=== PATIENT | male | born 1935 | race Caucasian/White ===

== ENCOUNTER 2016-03-14 16:17 | Observation (INO) | payer OTHER ==
[~2016-03-14] VITALS: Ht 167.6 cm; Wt 82.0 kg
[~2016-03-14 16:17] MED LIST: ACET-171 PO; ALBU18HF INH; ALBU2.5V4 IH; ASPI-973 PO; ATOR40TA69 PO; CEPH-512 PO; DOCU250C2 PO; FERR-74 PO; FURO40TA4 PO; ISOS60TA2 PO; METO25TA99 PO; NITR0.4T SL; OMEP20CA11 PO; OXYC-474 PO; POTA8TAB PO; PRAZ1CAP PO; SERT50TA9 PO; SIME80TA53 PO; SYMINH INHALATION
[2016-03-14 16:30] VITALS: BP 105/64; PULSE 83; RESP 18; O2SAT 90
[2016-03-14 17:57] LABS: BASOPHILS % (AUTO) 0.3 % (0-3); EOSINOPHILS % (AUTO) 5.4 % (0-5); MONOCYTES % (AUTO) 9.1 % (4-12); Mean Corpuscular Hemoglobin 30.9 pg (27.0-35.0); NEUTROPHILS % (AUTO) 70.3 % (40-74); Platelet Count 174 bil/L (150-400)
--- NOTE | 2016-03-14 18:06 | ED.REPORT ---
HPI-Abd Pain M 40 and Over Date of Service Mar 14, 2016 ED Provider: Adrian Mitchell MD An 80 year old male with a history of COPD, hiatal and ventral hernia, and hernia repair surgery among multiple other medical concerns is brought to the ED via EMS complaining of an abdominal hernia. The pt has had this hernia for four years. He has had surgery on the affected area but this was not successful. The pt is able to reduce the hernia, which comes out when he moves, but is experiencing increasing abdominal pain and nausea. The pain is as bad now as it has ever been, rated at an 8/10. The pt has an appointment for surgery with the [facility] in two months but did not feel that he was able to wait that long. Nursing Notes Stated Complaint: ABDOMINAL PAIN Chief Complaint: Male Abdominal Pain Nursing Notes Reviewed: Yes Allergies: Coded Allergies: morphine (Verified Allergy, Intermediate, RASH, 03/14/16) Scheduled Acetaminophen (Acetaminophen) 500 Mg Tablet 1,000 MG PO TID Aspirin (Aspirin) 81 Mg Tablet 81 MG PO DAILY Atorvastatin Calcium (Atorvastatin Calcium) 40 Mg Tablet 40 MG PO HS Budesonide/Formoterol 160-4.5 mcg Inh (Symbicort 160-4.5 mcg Inh) 120 Puff Inhaler 1 PUFF INHALATION BID Cephalexin (Keflex) 500 Mg Capsule 500 MG PO QID Ferrous Sulfate (Feosol) 325 Mg Tablet 325 MG PO DAILYWM Furosemide (Furosemide) 40 Mg Tablet 40 MG PO DAILY Furosemide (Furosemide) 40 Mg Tablet 40 MG PO BID Isosorbide MN ER (Isosorbide MN ER) 60 Mg Tab.er.24h 60 MG PO DAILY Metoprolol Succinate ER (Metoprolol Succinate ER) 25 Mg Tab.er.24h 25 MG PO BID Metoprolol Succinate ER (Metoprolol Succinate ER) 25 Mg Tab.er.24h 25 MG PO BID Omeprazole (Omeprazole) 20 Mg Capsule.dr 20 MG PO DAILY Potassium Chloride (K-Tab ER) 8 Meq Tablet.er 8 MEQ PO DAILY Prazosin (Minipress) 1 Mg Capsule 1 MG PO HS Sertraline HCl (Sertraline) 50 Mg Tablet 50 MG PO HS Simethicone (Gas-X) 80 Mg Tablet 160 MG PO QID Scheduled PRN Albuterol Neb Soln (Albuterol Neb Soln) 2.5 Mg/3 Ml Vial.neb 2.5 MG IH QID PRN PRN For Shortness of Breath Albuterol Sulfate (Ventolin HFA Inhaler) 200 Puff/18 Gm Inhaler 2 PUFF INH QID PRN PRN For Wheezing Docusate Sodium (Docusate Sodium) 250 Mg Capsule 200 MG PO BID PRN PRN For Constipation Nitroglycerin SL (Nitrostat) 0.4 Mg Tab.subl 0.3 MG SL Q5MIN PRN PRN For Chest Pain Oxycodone (Roxicodone) 5 Mg Tablet 2.5 MG PO Q4H PRN PRN For Pain Oxycodone (Roxicodone) 5 Mg Tablet 5 MG PO Q4H PRN PRN For Pain General Time Seen by MD: 18:06 Chief Complaint Other (Abdominal hernia) Hx Obtained From: Patient, EMS Arrived By: Ambulance Sudden in Onset?: No Onset Occurred: More than a week ago... Symptom Duration: Since onset Recent Healthcare: Recent doctor visit, Recent hospitalization Similar Sx Previous: Yes Past Medical History Past Medical History Notes: PCP: Dr. Viveros at the [facility] Past Medical History PAST MEDICAL HISTORY: 1. The patient is known hypertensive, but he cannot confirm this. 2. He has no history of diabetes mellitus. 3. He has history of COPD on home oxygen, which was started about three months ago. He was diagnosed to have COPD around 2006. Known FEV1 in 2006 of 0.96. No history of childhood asthma. 4. History of coronary artery disease, with history of coronary bypass grafting around May 2002 with bovine aortic valve replacement for aortic stenosis at the same time. He subsequently had a repeat coronary bypass grafting around 2006 or 2007, but I cannot confirm this. He said he had cardiac catheterization about 2 months ago at the [facility] and was told that one of his bypass grafts was fine, but the other one was probably obstructed, but stents were not placed. The patient had a previous echocardiogram on April 29, 2011, which revealed normal left ventricular systolic function, with ejection fraction of about 55% to 60%. There is moderate tricuspid regurgitation. There is a bioprosthetic aortic valve. The leaflets are not well seen. The peak velocity of 4.1 msec, which is compatible with vgwoptej-en-lvrlkn aortic stenosis. Aortic valve area 0.79 cm squared. 5. He has a history of streptococcus viridans endocarditis in 2000, due to IV drug use. 6. 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 7. He has no history of thyroid dysfunction. 8. He has history of hyperlipidemia. 9. He has no history of cancer. 10. He has a diagnosis of posttraumatic stress disorder. 11. He has a history of hepatitis C infection. 12. He has a history of benign prostatic hypertrophy. 13. History of hiatal hernia. 14. History of ventral hernia. Reports: COPD, Congestive heart failure, Coronary artery disease, GERD, Hyperlipidemia Reports: Atrial fibrillation Past Surgical History PRIOR SURGERY: Includes colon resection with colostomy in 2007 secondary to ischemic colitis. He had history of brain tumor resection in 1995 on the right side. He has history of cholecystectomy. He has history of aortic valve replacement around 2002 for aortic valve stenosis associated with coronary bypass grafting. He again had coronary bypass grafting July 2007. Reports: CABG Reports: Pacemaker insertion Family History Noncontributory Smoking History Former Smoker Social History currently residing at [facility] due to recent injuries (broken back, subdural hemorrhage) Alcohol Use: 1-3 per week Drug Use: In recovery Other Social History: Local resident Ambulatory Status Cane Review of Systems Review of Systems Note: +abdominal hernia Constitutional: Denies: Chills, Fever Respiratory: Denies: Non-productive cough, Shortness of breath Cardiovascular: Denies: Chest pain GI: Reports: Abdominal pain, Nausea, Denies: Vomiting Musculoskeletal: Denies: Back pain, Neck pain Complete sys rev & neg: except as marked. Physical Exam Initial Vital Signs Vital Signs (First) Date Time Temp Pulse Resp B/P Pulse Ox O2 Delivery O2 Flow Rate FiO2 03/14/16 16:30 36.7 83 18 105/64 90 Room Air 03/14/16 23:06 2 Initial VS: Reviewed General/Constitutional: Awake, Alert Respiratory / Chest: Atraumatic, Breath sounds NL, Breath sounds = bilat, No respiratory distress Cardiovascular: Heart rate NL, Regular rhythm, Heart sounds NL Abdomen: Atraumatic colostomy bag in RUQ hernia just inferior to colostomy bag on the right side hernia is tender to palpation and reducible Back: Atraumatic, Full range of motion Head / Eyes: Atraumatic, Normocephalic, PERRL, EOMI ENT: Atraumatic, Airway patent, Mucous membranes moist Skin: Atraumatic, Color NL, No rash, Warm, Dry Neurologic: Oriented X3, Speech NL, No motor deficits, No sensory deficits Neck: Atraumatic, Supple, Full range of motion Upper Extremity / MS: Atraumatic, Full range of motion Lower Extremity / Pelvis / MS: Atraumatic, Full range of motion Psychiatric: Affect NL, Mood NL Interpretation & Diagnostics Lab Results Interpretation Result Diagram: 03/14/16 1740 03/15/16 0550 Test 03/14/16 17:40 03/14/16 19:15 White Blood Count 6.8th/mm3 (3.8-10.1) Red Blood Count 3.69mil/mm3 (4.40-5.80) Hemoglobin 11.4g/dL (13.8-17.2) Hematocrit 35.8% (41.0-50.0) Mean Corpuscular Volume 97.0fL (81-100) Mean Corpuscular Hemoglobin 30.9pg (27.0-35.0) Mean Corpuscular Hemoglobin Concent 31.8% (32.0-37.0) Red Cell Distribution Width 13.5% (12.3-15.4) Platelet Count 174bil/L (150-400) Neutrophils (%) (Auto) 70.3% (40-74) Lymphocytes (%) (Auto) 14.6% (14-46) Monocytes (%) (Auto) 9.1% (4-12) Eosinophils (%) (Auto) 5.4% (0-5) Basophils (%) (Auto) 0.3% (0-3) Magnesium Level 2.3mg/dL (1.6-2.6) Total Bilirubin 0.4mg/dL (0.0-1.2) Aspartate Amino Transf (AST/SGOT) 21U/L (0-50) Alanine Aminotransferase (ALT/SGPT) 15U/L (0-44) Alkaline Phosphatase 87U/L (25-160) Total Protein 7.7g/dL (6.4-8.4) Albumin 3.4g/dL (3.4-5.0) Lipase 13U/L (13-60) Hold Purple Top Tube Received (Received) Hold Blue Top Tube Received (Received) Hold Red Top Tube Received (Received) Hold [place] Top Tube Received (Received) CT Abd / Pelvis Interpretation IMPRESSION: 1. Mid small bowel high-grade obstruction, secondary to an incarcerated loop of small bowel within a right mid abdominal parastomal hernia. 2. Additional nearby moderate right and small left periumbilical ventral hernias, containing additional loops of nonobstructed small bowel. 3. Status post remote segmental mid colon resection with right mid abdominal colostomy. Descending and sigmoid colon diverticulosis. 4. Bilateral gynecomastia as before may be secondary to medication side effects or underlying liver disease, among other possibilities. 5. Nonacute mild T11 and T12 vertebral body anterior wedge compression fractures. Dictated by: Tico Torrez M.D. on 03/14/2016 at 20:48 Approved by: Tico Torrez M.D. on 03/14/2016 at 20:48 Study type: Abdom CT oral contrast Interpretation / Wet Read by: Interpret - Radiologist Procedures Procedure Notes: Incarcerated hernia reduction performed by surgeon with sedation by ED physician. After procedure: Hernia feels reduced. Proced Mod Sedation/Analgesia Propofol: 20 mg + 15 mg Dilaudid: 2 mg + 2 mg Time: 23:15 Procedure Performed by: ED physician Sedation Time: 0 - 15 min Consent / Setup: Informed consent provided, Consent from patient, Time-out performed, Hand hygiene observed, Stand sterile technique, Head of bed at 30-60 deg Indication: Other (Hernia reduction) Preparation: econometrics professor applied, Pulse oximeter applied, Constant attendance, IV access established, Eval last meal time, Supplemental oxygen, Procedure explained, Suction available, End tidal CO2 mon applied VS Prior to Procedure: All vital signs normal, O2 saturation normal, Blood pressure normal, Heart Rate normal, Respiratory rate normal Mallampati: Class & Anatomy: 4 hard palate visible Airway Exam: Normal facial anatomy, Normal neck anatomy, Normal anatomy CVS/Resp Exam: Normal breath sounds, Normal heart sounds Neuro Exam: Alert, No acute distress Sedation: Sedation: Propofol (35 mg), Analgesia: Dilaudid (4 mg) ASA Classification: 3 sev disease/not incap Response During Procedure: Handled secretions adeq, Maintained airway well, Oxygenation stable, Sedation appropriate, Vital signs stable Complications During/After: None Reversal: None required Mental Status After Procedure: Alert, Oriented X3, At patient's baseline Post-Procedure: Alert prior to discharge, Ambulatory with assist, Pt rtn pre- proc baseline, Vital signs normal Attestation: I performed sedation Re-Eval/Medical Decision Source of Hx: Old records Time of Eval: 21:34 Re-Evaluation/Progress Note: Pt rechecked. He is still experiencing significant pain. Time of Eval: 23:07 Re-Evaluation/Progress Note: Pt rechecked. Discussed plan for procedural sedation to attempt to reduce his incarcerated hernia. The procedure will be performed by the surgeon. He agrees with plan for sedation and procedure. Consultation #1: Referral / Consult Name: Kavitha Nolasco MD Consulted With: Surgeon Call Returned at: 21:53 Entry Level Accounting Clerk: Will see patient, Agrees with eval, Agrees with plan Note: Case discussed. She will come see the patient. After evaluation, she would like to perform procedural sedation and attempt to reduce it. After procedure, she believes the procedure was successful and she recommends admit to hospitalist service for observation. She will re-evaluate the patient tomorrow morning. Consultation #2: Referral / Consult Name: Celine Agrawal MD Consulted With: Hospitalist Call Returned at: 23:49 Entry Level Accounting Clerk: Will see patient, Agrees with eval, Agrees with plan, Accepts admit Note: Case discussed. [facility], she will admit. Consultation #3: Call Returned at: 00:49 Note: Discussed case with [facility] transfer nurse. They have room for the patient and will call back if the hospitalist agrees to take him. Consultation #4: Call Returned at: 01:30 Entry Level Accounting Clerk: Agrees with eval, Agrees with plan Note: [facility] They request I speak to the surgeon. Consultation #5: Consulted With: Surgeon Call Returned at: 01:59 Entry Level Accounting Clerk: Agrees with eval, Agrees with plan Note: Discussed case with [facility] surgeon Dr. Jeter. They would like us to admit him to the hospitalist service. They will see him in their clinic on . Counseled Regarding: Diagnosis, Lab results, Need for admission Discharge & Departure Primary Impression: SBO (small bowel obstruction) Additional Impressions: Incarcerated hernia Colostomy in place Diverticulosis Diverticulosis site: diverticulosis of large intestine Diverticulosis bleeding: diverticulosis without bleeding Qualified Code: K57.30 - Diverticulosis of large intestine without perforation or abscess without bleeding Gynecomastia Wedge compression fracture of eleventh thoracic vertebra Encounter type: subsequent encounter Fracture type: closed Fracture healing : with routine healing Qualified Code: S22.080D - Wedge compression fracture of T11-T12 vertebra, subsequent encounter for fracture with routine healing Wedge compression fracture of twelfth thoracic vertebra Encounter type: subsequent encounter Fracture type: closed Fracture healing : with routine healing Qualified Code: S22.080D - Wedge compression fracture of T11-T12 vertebra, subsequent encounter for fracture with routine healing Disposition: ADMITTED TO HOSPITAL Vital Signs - All Vital Signs Date Time Temp Pulse Resp B/P Pulse Ox O2 Delivery O2 Flow Rate FiO2 03/14/16 23:06 36.5 71 18 107/63 97 Nasal Cannula 2 03/14/16 16:30 36.7 83 18 105/64 90 Room Air )( All Prior VS Reviewed: Yes Condition: Stable Referrals: James Viveros MD (PCP) Daphne Attestation Portions of this note were transcribed by Anais Mejia. Dr. Stephen Gonzalez personally performed the history, physical exam and medical decision-making; I reviewed and confirmed the accuracy of the information in the transcribed note. Signed by: Daphne Ivan, 03/14/2016, 18:39 Portions of this note were transcribed by Regan Arreola. Dr. Munira Gonzalez personally performed the history, physical exam and medical decision-making; I reviewed and confirmed the accuracy of the information in the transcribed note. Daphne Moss, 03/14/16 - 1950 copies to: James Viveros MD, Gary R DO Mar 14, 2016 18:06 ANAIS MEJIA Mar 14, 2016 18:36 REGAN ARREOLA Mar 14, 2016 19:51 bleeding: diverticulosis without bleeding Qualified Code: K57.30 - Diverticulosis of large intestine without perforation or abscess without bleeding Gynecomastia Wedge compression fracture of eleventh thoracic vertebra Encounter type: subsequent encounter Fracture type: closed Fracture healing : with routine healing Qualified Code: S22.080D - Wedge compression fracture of T11-T12 vertebra, subsequent encounter for fracture with routine healing Wedge compression fracture of twelfth thoracic vertebra Encounter type: subsequent encounter Fracture type: closed Fracture healing : with routine healing Qualified Code: S22.080D - Wedge compression fracture of T11-T12 vertebra, subsequent encounter for fracture with routine healing Disposition: ADMITTED TO HOSPITAL Vital Signs - All Vital Signs Date Time Temp Pulse Resp B/P Pulse Ox O2 Delivery O2 Flow Rate FiO2 03/14/16 23:06 36.5 71 18 107/63 97 Nasal Cannula 2 03/14/16 16:30 36.7 83 18 105/64 90 Room Air )( All Prior VS Reviewed: Yes Condition: Stable Referrals: James Viveros MD (PCP) Daphne Attestation Portions of this note were transcribed by Anais Mejia. Dr. Stephen Gonzalez personally performed the history, physical exam and medical decision-making; I reviewed and confirmed the accuracy of the information in the transcribed note. Signed by: Daphne Ivan, 03/14/2016, 18:39 Portions of this note were transcribed by Regan Arreola. Dr. Munira Gonzalez personally performed the history, physical exam and medical decision-making; I reviewed and confirmed the accuracy of the information in the transcribed note. Daphne Moss, 03/14/16 - 1950 copies to: James Viveros MD, Gary R DO Mar 14, 2016 18:06 ANAIS MEJIA Mar 14, 2016 18:36 REGAN ARREOLA Mar 14, 2016 19:51
[2016-03-14 18:26] LABS: Magnesium 2.3 mg/dL (1.6-2.6)
[2016-03-14] MEDS ORDERED: Ondansetron 2 mg/mL 2 mL Inj IVPUSH ONE (18:35)
[2016-03-14] MEDS ORDERED: Iohexol 300 mg/mL 30 mL Inj PO ONE (18:35)
[2016-03-14] MEDS ORDERED: Ondansetron 2 mg/mL 2 mL Inj IVPUSH PRN (18:35)
[2016-03-14] MEDS: HYDROmorphone 0.5 mg/0.5 mL iSecure Syringe IVPUSH PRN ×3 (20:07→22:27)
--- NOTE | 2016-03-14 20:50 | DRSVH ---
PROCEDURE: CT ABDOMEN AND PELVIS WITH CONTRAST ([id number]) INDICATIONS: 80 year-old male with ventral hernia pain. TECHNIQUE: After the administration of oral and intravenous contrast, 5 mm thick sections acquired from the diap hragms to the symphysis. 5 mm thick coronal and sagittal reformats were performed. For radiation do se reduction, the following was used: automated exposure control, adjustment of mA and/or kV accordi ng to patient size. COMPARISON: [facility], CT, CT ABDOMEN PELVIS W CONTRAST, 02/22/2016, 1:52 PM. [facility], CT, CT ABDOMEN PELVIS W CONTRAST, 11/25/2015, 8:36 AM. [facility], CT, CT ABD PELVIS W CON, 11/19/2015, 21:12. FINDINGS: Image quality: Excellent. ABDOMEN: Lung bases: Lung bases are clear, except for scattered bibasilar scarring. Heart size is normal, st atus post median sternotomy and aortic valve replacement. There is bilateral gynecomastia as before. Pacemaker wires are present. Solid organs: Liver and spleen are normal in size and enhancement. Gallbladder is surgically absent . Biliary system is non-dilated. Pancreas enhances normally. No adrenal nodules. Kidneys are norm al in size and enhancement, without hydronephrosis. Peritoneum and bowel: Patient is status post segmental mid colon resection with right abdominal colo stomy. Descending and sigmoid colon are decompressed, with sigmoid colon diverticulosis. Several dila david loops of mid small bowel are present in the central abdomen, with decompressed distal small bowel loops. No free fluid or air. Nodes and vessels: No retroperitoneal or mesenteric adenopathy. Aorta and inferior vena cava are no rmal in caliber, with diffuse aortoiliac atherosclerosis. Miscellaneous: Moderate right and small left periumbilical ventral hernias are again noted, containin g several loops of small bowel. An additional right mid abdominal parastomal hernia is again noted, c ontaining a dilated loop of small bowel with internal feces-like material. PELVIS: Genitourinary: The bladder is decompressed by a Lindsey catheter. Prostate gland is normal in size. Miscellaneous: No inguinal hernias or adenopathy. Bones: No suspicious bony lesions. Nonacute T11 and T12 vertebral body compression fractures are unc hanged. IMPRESSION: 1. Mid small bowel high-grade obstruction, secondary to an incarcerated loop of small bowel within a right mid abdominal parastomal hernia. 2. Additional nearby moderate right and small left periumbilical ventral hernias, containing addition al loops of nonobstructed small bowel. 3. Status post remote segmental mid colon resection with right mid abdominal colostomy. Descending an d sigmoid colon diverticulosis. 4. Bilateral gynecomastia as before may be secondary to medication side effects or underlying liver d isease, among other possibilities. 5. Nonacute mild T11 and T12 vertebral body anterior wedge compression fractures. Dictated by: Tico Torrez M.D. on 03/14/2016 at 20:48 Approved by: Tico Torrez M.D. on 03/14/2016 at 20:48
[2016-03-14] MEDS ORDERED: HYDROmorphone 1 mg/mL Inj IVPUSH ONE (23:00)
[2016-03-14] MEDS ORDERED: Propofol 10 mg/mL 20 mL Inj IVPUSH ONE (23:00)
--- NOTE | 2016-03-14 23:05 | NUR ---
[facility] Note Patient rang call light for assistance in getting into a comfortable position. He appears hard of hearing as he had the television very loud. At this time patient elected to keep the TV turned up while having a conversation with this staff member. Patient stated that he has been experiencing very bad stomach pain and that was why he was here. He appears otherwise calm about this. Patient appears physically uncomfortable but otherwise easily engaged, even smiling. Patient appears logical and linear as well as oriented to time and place. He is future oriented, stating that he just doesn't want to be in any more pain.
[2016-03-14 23:06] VITALS: BP 107/63; PULSE 71; RESP 18; O2SAT 97
--- NOTE | 2016-03-15 01:05 | CONS ---
[address] [address] CONSULTATION REPORT PATIENT: FABIÁN AVALOS : 1935 MR#: [id number] ADMIT: 03/14/2016 JOB ID: [id number] DATE OF SERVICE: 03/14/2016 CHIEF COMPLAINT: Incarcerated parastomal hernia. This consultation is requested by Gibran Lombardo DO. HISTORY OF PRESENT ILLNESS: This is an 80-year-old man with a history of right colectomy for ischemic colitis, with a right-sided colostomy, who has a parastomal hernia and a midline ventral hernia. He has been in the emergency department many times over the past 10 years with incarceration of his parastomal hernia. Typically, it is reduced and he is discharged. He has been seen by multiple surgeons, including several here at [facility], and has also been evaluated at the [facility] in [place] where his right hemicolectomy was done. He has been relatively not a candidate for elective surgical intervention given his comorbidities of COPD with home oxygen, history of coronary artery disease, status post CABG, and congestive heart failure, as well as poor functional status. He came in today with a bulge and abdominal pain near his stoma. He last had stoma output earlier this morning. He is having some nausea but no vomiting. PAST MEDICAL HISTORY: 1. Hypertension. 2. COPD, on home oxygen. 3. Coronary artery disease, status post CABG in 2002, with bovine aortic valve replacement, and repeat CABG in . 4. History of Streptococcus viridans endocarditis in 2000 due to IV drug use. 5. History of partial and complete small bowel obstruction. 6. Hyperlipidemia. 7. PTSD. 8. History of hepatitis C. 9. BPH. 10. Hiatal hernia. PAST SURGICAL HISTORY: 1. Right colectomy in 2007 for ischemic colitis. 2. Cholecystectomy. 3. CABG with AVR in 2002. 4. Repeat CABG in 2007. 5. Pacemaker placement. MEDICATIONS: 1. Tylenol. 2. Aspirin. 3. Atorvastatin. 4. Furosemide. 5. Metoprolol. 6. Omeprazole. 7. Potassium. 8. Prazosin. 9. Sertraline. 10. Simethicone. PRNs: 1. Albuterol. 2. Docusate 3. Nitroglycerin. 4. Oxycodone. ALLERGIES: MORPHINE. SOCIAL HISTORY: He lives with his roommate, Kwame Gaines, who he says is his DPOA. He used to smoke, and a history of IV drug use in the past. In the emergency department, he notes he is residing at [facility]. REVIEW OF SYSTEMS: Review of systems could not be obtained as the patient has difficulty answering questions. However, the review of systems in the emergency department note reports abdominal pain and nausea, and is otherwise negative. PHYSICAL EXAMINATION: Temperature 36.7, heart rate 83, blood pressure 105/64, respiratory rate of 18, saturation 90% on room air. General: Awake, unable to answer questions. Cardiac: Regular rate and rhythm, systolic murmur is present. Respiratory: Clear bilaterally. Abdomen: Tender bulge near his right colostomy bag, and nontender bulge is present in the midline. The remainder of his abdomen is not tender. Extremities: Atraumatic. Psychiatric: He appears somewhat anxious. LABORATORIES: White blood cell count is 6.8, hematocrit 35.8, platelets 174. Comprehensive metabolic panel is within normal limits. CT SCAN: Small bowel obstruction due to incarcerated loop of small bowel within a parastomal hernia. There is a right ventral hernia with additional loops of nonobstructed bowel. ASSESSMENT: An 80-year-old male with incarcerated loop of bowel within a parastomal hernia. This has happened many times before. He has normal labs and vital signs. Normal lactate. He has been ruled out as a candidate for elective repair due to his comorbidities. RECOMMENDATIONS: The hernia was reduced using 4 mg of Dilaudid plus propofol, as per Dr. Lombardo of the emergency department. We did this reduction together. The patient tolerated it well. The bulge was entirely reduced from both herniae at the end of the procedure. His abdomen was flat and flush. I recommend overnight admission for observation given the incarcerated nature of his hernia. If he shows signs of bowel compromise, I will be available for intervention. However, his overall clinical picture is relatively benign, observation will be in his best interest. CHEMA
[2016-03-15] MEDS ORDERED: Alum-Mag Hydrox-Simeth 30 mL Suspension PO PRN (02:15)
[2016-03-15] MEDS ORDERED: Polyethylene Glycol (PEG) 17 Gm Powder PO PRN (02:15)
[2016-03-15] MEDS ORDERED: Ondansetron 2 mg/mL 2 mL Inj IVPUSH PRN (02:15)
--- NOTE | 2016-03-15 02:22 | PCM.HPMED ---
Subjective Date of Service Mar 15, 2016 Primary Provider: Admitting Physician: Celine Agrawal MD Primary Care Physician: James Viveros MD Attending Physician: Celine Argawal MD Chief Complaint: Parastomal herniation History of Present Illness: Patient is a 80-year-old male with Hx significant for CAD status post CABG 4,atrial fibrillation with RVR, pacemaker, by prostatic aortic valve placement, COPD on home O2, hemicolectomy with right colostomy presents with recurrent parastomal herniation. Per medical records, patient presented today with ventral hernia, unable to reduced protrusion as he has done before, had increasing abdominal pain and nausea, thus came to the ED. CT-abdomen showed high grade small bowel obstruction within the parastomal hernia and a second small periumbilical hernia. Under conscious sedation, surgeon Dr. Nolasco and Dr. Lombardo was able to reduced to hernias. Case was discuss with [facility] Dr. Jeter who agrees to see patient at their clinic on 03/19/2016. Prior to procedure, patient was conversing, alert and oriented 3. When I evaluated him at around 4:00am today, patient respond to command, however not alert and oriented 3. Patient looks sedated. Propofol and Dilaudid 4mg was used for conscious sedation. ABG showed pH 7.264, PCO2 68, PO2 66, bicarbonate 29. Patient was transferred on to PCC/CCU for monitor, possible BIPAP. Review of Systems: Unable to obtain review of systems due to patient's condition. Allergies Coded Allergies: morphine (Verified Allergy, Intermediate, RASH, 03/14/16) Home Medications Medication list has not been reconciled by nurse Acetaminophen 1000 mg by mouth 3 times a day when necessary Albuterol nebulizer 2.5 mg inhaler 4 times a day. And Ventolin HFA 4 times a day when necessary Aspirin 81 mg daily Atorvastatin 40 mg at bedtime Symbicort 160/4.5 3 times a day Keflex 500 mg 4 times a day Docusate sodium 200 mg twice a day Ferrous sulfate 325 mg daily Furosemide 40 mg daily Isosorbide ER 60 mg daily Metoprolol succinate 25 mg twice a day Nitroglycerin 0.4 mg up lingual when necessary for chest pain Omeprazole 20 mg daily Roxicodone 5 mg by mouth every 4 hours when necessary Potassium chloride 8 mEq daily Prazosin 1 mg at bedtime Sertraline 50 mg at bedtime Simethicone 160 mg 4 times a day PMH Recurrent parastomal hernia Subdural hematoma April. Vertebral fracture L11-12 Atrial fibrillation with RVR. Coronary artery disease s/p bypass grafting COPD on 2L home oxygen. Heart failure with preserved ejection fraction Hepatitis C Hyperlipidemia. PTSD Bladder dysfunction requiring chronic indwelling Lindsey catheter Pulmonary hypertension Sick sinus syndrome S/P pacemaker History of deep vein thrombosis History of gastric ulcer Anxiety Insomnia Agitation History of drug abuse Endocarditis 3, strep viridans Ischemic colitis s/p partial colectomy Surgical History Craniotomy for benign brain tumor Bioprosthetic aortic valve replacement in 2009 Cholecystectomy CABG 4 Pacemaker placement Sigmoid colon resection with colostomy Parastomal hernia repair 2012 Achilles tendon surgery (bilateral) Family History Father with unknown cancer Mother: Alzheimer disease, Social History Hx Alcohol Use: Yes ("3 beers once a week") Hx Substance Use: Yes (quit cocaine 10 years ago) Hx Tobacco Use: Yes ("quit in 1994") Smoking Status: Former Smoker Living Arrangement: Other (lives alone in his trailer) Exam Vital Signs Vital Sign - Last Date Time Temp Pulse Resp B/P Pulse Ox O2 Delivery O2 Flow Rate FiO2 03/14/16 23:06 36.5 71 18 107/63 97 Nasal Cannula 2 Exam General: Sedated HEENT: Normocephalic, atraumatic. External ears without defect. Pupils equal, round, and reactive to light and accommodation. Anicteric sclerae, moist conjunctivae, and no lid lag. Oropharynx free of erythema and cobble stoning with moist mucosa. Neck: Supple with full range of motion. No jugular venous distension. No bruits. No lymphadenopathy or thyromegaly. Cardiovascular: 2+ systolic murmur, irregularly irregular rate and rhythm Pulmonary: Bilateral air sound, wheezes on the lower right lobe. Normal respiratory effort with no use of accessory muscles. Abdomen: Bowel tones present. Soft nontender, ventral hernia adjacent to right colostomy bag Extremities: No clubbing, cyanosis, edema, or lymphadenopathy appreciated. Skin: Normal temperature, turgor, and texture; no rash, ulcers, or subcutaneous nodules appreciated. Neurological: Cranial nerves grossly intact. Normal muscle strength, tone, and bulk. Psychiatric: Confused, not alert orientated, however response to command. Lab and Diagnostics Result Diagram: 03/14/16 [id number] Assessment & Plan Patient is a 80-year-old male with Hx significant for CAD status post CABG 4, atrial fibrillation with RVR, pacemaker, by prostatic aortic valve placement, COPD on home O2, hemicolectomy with right colostomy presents with recurrent parastomal herniation with small bowel incarceration, admitted for observation. Hypoxic, hypercapnic respiratory failure, present on admission active - Monitor mentation - Consider abdominal truss and BIPAP if mentation worsen Small bowel obstruction, present on admission, active - s/p reduction - Trend lactic acid - Surgery following. COPD, present on admission, stable - Symbicort 160/4.5 MCG - Albuterol, DuoNeb when necessary Heart failure with preserved ejection fraction, present on admission, stable - Lasix 40mg daily Chronic Afib, present on admission, stable - Has a pacemaker - Metoprolol succinate 25 mg twice a day Depression - Sertraline 50mg PTSD - Prazosin 1mg HS DVT prophylaxis: heparin subQ Antipyretic: Acetaminophen PRN Antinausea: Ondansetron PRN Bowel regiment PRN Patient is admitted under observation status with expected length of stay LESS than 2 midnights due to severity of presenting symptoms, risk of adverse event, and complexity of treatment plan. Resuscitation Status: CPR: Attempt Resuscitation Attending Statement Pt seen and examined by myself and agree with above plan. Christiano Gunter DO Mar 15, 2016 02:22 Celine Agrawal MD Mar 15, 2016 06:27
[2016-03-15 02:57] VITALS: BP 95/69; PULSE 96; RESP 18; O2SAT 93
[2016-03-15] MEDS: HYDROmorphone 0.5 mg/0.5 mL iSecure Syringe IVPUSH PRN (03:03)
[2016-03-15] MEDS ORDERED: 0.9% Sodium Chloride 1,000 ML IV SCH (03:40)
[2016-03-15 03:45] VITALS: BP 123/80; PULSE 94; RESP 20; O2SAT 94
--- NOTE | 2016-03-15 04:04 | ABG ---
DateTimeAnalyzed 03:55:00 -_ pH ____7.264 - 7.350 7.450 pCO2 ___68.2__ -mmHg 35.0 45.0 pO2 ___66.7__ -mmHg 69.0 116 HCO3- ___29.9__ -mmol/L 22.0 26.0 ABE ____1.8__ -mmol/L -2.0 2.0 tHb ___11.9__ -g/dL O2Hb ___88.6__ -% COHb ____1.3__ -% MetHb ____1.1__ -% sO2 ___90.8__ -% 25.0 FIO2 ___28.0__ -% Drawn By MM - Date/Time Notified____ 04:03:00 -_ Liter_Flow ____2.0__ -L/min Oxygen Device 1 __CANNULA - Notified By MM - Notified Whom HUNG, ANN MARIE MD - B 750 -mmHg tO2 ___14.8__ -Vol% Gerson test _Positive -
--- NOTE | 2016-03-15 05:00 | NUR ---
Pt transferred from [facility]. Pt came up on bed and ambulated from [facility] bed to CCU bed without difficulty. Pt is a little drowsy but wakes easily to verbal stimuli and is able to answer questions and make needs known. Pt is on 1 lpm with sats at 94%, will attempt a RA challenge. Do to pt's COPD history and retaining of CO2, we will attempt to keep sats 88-91%. Vital signs stable. HR is sinus with pvc.
--- NOTE | 2016-03-15 05:06 | NUR ---
To [facility] from ED @ 0300 Drowsy from conscious sedation in ED. Night hospitalist at bedside. ABG's drawn. Order to transfer to 2nd floor received from Dorita Correa. Report given to Demetra Gregory and patient transported to 2014. Admit not complete.
[2016-03-15] MEDS ORDERED: Albuterol-Ipratropium 3 mL Inhalation Solution NEB PRN (05:10)
[2016-03-15] MEDS ORDERED: Albuterol 2.5 mg/3 mL Inhalation Solution NEB PRN (05:10)
[2016-03-15 05:14] LABS: APPEARANCE,URINE CLOUDY (CLEAR,HAZY); COLOR,URINE YELLOW (YELLOW); OCCULT BLOOD,URINE MODERATE (NEGATIVE); PH,URINE 5.5 (5.0-8.0)
[2016-03-15 05:15] VITALS: BP 115/64; PULSE 95; RESP 20; O2SAT 92
[2016-03-15 05:15] LABS: YEAST,URINE MANY (NONE SEEN)
[2016-03-15] MEDS ORDERED: diphenhydrAMINE-Zinc 2%-0.1% 30 Gm Cream TOPICAL PRN (05:40)
[2016-03-15] MEDS: Isosorbide Mononitrate 60 mg ER24 Tablet PO SCH ×2 (07:30→10:40)
[2016-03-15 08:23] VITALS: BP 110/65; PULSE 91; RESP 11; O2SAT 92
[2016-03-15] MEDS ORDERED: Heparin 5,000 Unit/mL Inj SUBQ SCH (08:30)
[2016-03-15] MEDS ORDERED: MeTOProlol XL 25 mg ER24 Tablet PO SCH (08:30)
[2016-03-15] MEDS ORDERED: Fluticasone-Salmererol 250-50 Inhaler INHALATION SCH (08:30)
--- NOTE | 2016-03-15 08:55 | PROG NOTE ---
[address] [address] PROGRESS NOTE PATIENT: FABIÁN AVALOS : 1935 MR#: [id number] ADMIT: 03/15/2016 JOB ID: [id number] DATE: 03/15/2016 SUBJECTIVE: This is an 80-year-old man who presented with an incarcerated parastomal hernia, as well as a midline ventral hernia. He has been to this hospital many times before for the same. He has been considered to be a nonoperative candidate by his providers at the [facility] due to his comorbidities. His parastomal hernia was reduced last night. This morning he reports that he is not having abdominal pain. The ventral hernia just to the left of the peristomal hernia still has loops of bowel in it, however, these are easily reducible and nontender. OBJECTIVE: Vital signs are within normal limits. He is awake and alert, no acute distress. Abdomen: Midline ventral hernia is still protuberant, soft, reducible, and nontender. The peristomal hernia bulge has been reduced and remains reduced. He does not have tenderness around his stoma. Currently there is nothing in the ostomy bag. Basic metabolic panel is within normal limits. There is no CBC this morning. ASSESSMENT: An 80-year-old man status post reduction of a peristomal hernia last night. He was admitted overnight and the peristomal portion of his hernia has not recurred. RECOMMENDATIONS: If he shows signs of return of bowel function, i.e. gas or stool in his ostomy bag, he may be discharged. He may follow up with me as an outpatient. CHEMA
--- NOTE | 2016-03-15 09:19 | NUR ---
Mentation Pt AAOx3, ambulated to bathroom with cane with SBA, gait steady. Independently emptied Lindsey and colostomy. Declined to take medications, as he would rather take them at home. Addendum: 03/15/16 at 1107 by MICHAEL HASKINS RN Pt c/o central CP, upon interview and assessment, pt reports the pain moves around to different placed on his chest. Colostomy bag with significant gas in it. Pt had just finished breakfast. EKG obtained, see chart. ABG and Trops pending. Pt on 1L NC with SpO2 95%. Pt now amicable to taking morning medications, received isosorbide, metoprolol, lasix. Addendum: 03/15/16 at 1212 by MICHAEL HASKINS RN Pt now denies any pain at all. Lab unable to get blood, ordered to d/c patient. D/C teaching complete. VSS. Pt declines questions.
--- NOTE | 2016-03-15 10:19 | PCM.DIMED ---
Discharge Instructions Date of Service Mar 15, 2016 Dates of Hospitalization Mar 15, 2016 at 02:07 Diet No restrictions Activity Limited until seen by PCP Call your provider Other (worsening abdomimal pain) Patient Instructions Follow-up plan Follow up with Dr. Jeter on 03/19/16; one of the doctors wilson care of you in the hospital spoke with this doctor who agrees to see you in follow up as noted above. Also follow up with your primary care provider soon. Stephania Dave MD Mar 15, 2016 10:19
--- NOTE | 2016-03-15 10:31 | PCM.DC.MED ---
Discharge Summary Date of Service Mar 15, 2016 Dates of Hospitalization Date of Hospital Admission Mar 15, 2016 at 02:07 Date of Discharge: Mar 15, 2016 Providers: Admitting Physician: Celine Agrawal MD Primary Care Physician: James Viveros MD Attending Physician: Celine Agrawal MD Diagnosis at Time of Discharge Diagnosis at Time of Discharge Hypoxic, hypercapnic respiratory failure, present on admission, resolved Small bowel obstruction, present on admission, resolved COPD, present on admission, stable Heart failure with preserved ejection fraction, present on admission, stable Chronic Afib, present on admission, stable Depression, poa, stable PTSD , poa, stable Brief History Patient is a 80-year-old male with Hx significant for CAD status post CABG 4,atrial fibrillation with RVR, pacemaker, by prostatic aortic valve placement, COPD on home O2, hemicolectomy with right colostomy presents with recurrent parastomal herniation. Per medical records, patient presented today with ventral hernia, unable to reduced protrusion as he has done before, had increasing abdominal pain and nausea, thus came to the ED. CT-abdomen showed high grade small bowel obstruction within the parastomal hernia and a second small periumbilical hernia. Under conscious sedation, surgeon Dr. Nolasco and Dr. Lombardo was able to reduced to hernias. [facility] who agrees to see patient at their clinic on 03/19/2016. Prior to procedure, patient was conversing, alert and oriented 3. When I evaluated him at around 4:00am today, patient respond to command, however not alert and oriented 3. Patient looks sedated. Propofol and Dilaudid 4mg was used for conscious sedation. ABG showed pH 7.264, PCO2 68, PO2 66, bicarbonate 29. Patient was transferred on to PCC/CCU for monitor, possible BIPAP. Hospital Course Patient is a 80-year-old male with Hx significant for CAD status post CABG 4, atrial fibrillation with RVR, pacemaker, by prostatic aortic valve placement, COPD on home O2, hemicolectomy with right colostomy presents with recurrent parastomal herniation with small bowel incarceration, admitted for observation. Hypoxic, hypercapnic respiratory failure, present on admission active -secondary to sedation, bowl obstruction, and underlying COPD,,, resolved today. I wanted to do repeat ABG, patient refused, stable for discharge. Small bowel obstruction, present on admission, active - s/p reduction, with conscious sedation, now resolved. Follow up with surgery , [facility], Dr. Jeter,, Dr. Nolasco will sent a note to this surgeon for follow up thoughts. COPD, present on admission, stable - continue home precious Heart failure with preserved ejection fraction, present on admission, stable - continue home meds Chronic Afib, present on admission, stable - continue home meds Depression - continue home meds PTSD - continue same maeds Med Rec. I am not sure if this med rec is correct and patient does not know hids meds, Patient will continue on his usual home medications however and this was discussed with him. DVT prophylaxis: heparin subQ Antipyretic: Acetaminophen PRN Antinausea: Ondansetron PRN Bowel regiment PRN Patient is admitted under observation status with expected length of stay LESS than 2 midnights due to severity of presenting symptoms, risk of adverse event, and complexity of treatment plan. Exam Vital Signs (Last) Date Time Temp Pulse Resp B/P Pulse Ox O2 Delivery O2 Flow Rate FiO2 03/15/16 08:24 Supplement Oxygen 03/15/16 08:23 36.9 91 11 110/65 92 1.00 Test 03/14/16 17:40 03/14/16 19:15 03/15/16 02:45 03/15/16 05:50 White Blood Count 6.8th/mm3 (3.8-10.1) Red Blood Count 3.69mil/mm3 (4.40-5.80) Hemoglobin 11.4g/dL (13.8-17.2) Hematocrit 35.8% (41.0-50.0) Mean Corpuscular Volume 97.0fL (81-100) Mean Corpuscular Hemoglobin 30.9pg (27.0-35.0) Mean Corpuscular Hemoglobin Concent 31.8% (32.0-37.0) Red Cell Distribution Width 13.5% (12.3-15.4) Platelet Count 174bil/L (150-400) Neutrophils (%) (Auto) 70.3% (40-74) Lymphocytes (%) (Auto) 14.6% (14-46) Monocytes (%) (Auto) 9.1% (4-12) Eosinophils (%) (Auto) 5.4% (0-5) Basophils (%) (Auto) 0.3% (0-3) Magnesium Level 2.3mg/dL (1.6-2.6) Total Bilirubin 0.4mg/dL (0.0-1.2) Aspartate Amino Transf (AST/SGOT) 21U/L (0-50) Alanine Aminotransferase (ALT/SGPT) 15U/L (0-44) Alkaline Phosphatase 87U/L (25-160) Total Protein 7.7g/dL (6.4-8.4) Albumin 3.4g/dL (3.4-5.0) Lipase 13U/L (13-60) Hold Purple Top Tube Received (Received) Hold Blue Top Tube Received (Received) Hold Red Top Tube Received (Received) Hold [place] Top Tube Received (Received) Urine Color Yellow (YELLOW) Urine Appearance Cloudy (CLEAR,HAZY) Urine pH 5.5 (5.0-8.0) Urine Specific [place] 1.010 (1.003-1.035) Urine Protein Negativemg/dL (NEG,TRACE) Urine Glucose (UA) Negativemg/dL (NEGATIVE) Urine Ketones Negativemg/dL (NEGATIVE) Urine Occult Blood Moderate (NEGATIVE) Urine Nitrite Negative (NEGATIVE) Urine Bilirubin Negative (NEGATIVE) Urine Urobilinogen 1.0mg/dL (NORMAL) Urine Leukocyte Esterase Moderate (NEGATIVE) Urine RBC 3-10/hpf (0-2) Urine WBC Packed/hpf (0-5) Urine Epithelial Cells Occasional/hpf (NONE-MOD) Urine Crystals None seen (NONE SEEN) Urine Bacteria None/hpf (NONE-FEW) Urine Hyaline Casts None/lpf (NONE) Urine Granular Casts None seen (NONE SEEN) Urine Waxy Casts None seen (NONE SEEN) Urine Red Blood Cell Casts None seen (NONE SEEN) Urine White Blood Cell Casts None seen (NONE SEEN) Urine Mucus None seen (None Seen) Urine Trichomonas None seen (NONE SEEN) Urine Yeast Many (NONE SEEN) Urine Culture Reflexed Indicated Hold Urine Received (Received) Sodium Level 136mEq/L (134-144) Potassium Level 5.1mEq/L (3.5-5.2) Chloride Level 97mEq/L (97-108) Carbon Dioxide Level 27mmol/L (18-29) Blood Urea Nitrogen 20mg/dL (8-27) Creatinine 0.97mg/dL (0.76-1.27) Estimat Glomerular Filtration Rate 79mL/min (>59) Glucose Level 111mg/dL (60-99) Lactic Acid Level 0.7mmol/L (0.4-2.0) Calcium Level 8.8mg/dL (8.5-10.1) Discharge Medications Discharge Medications Acetaminophen (Acetaminophen) 500 Mg Tablet 1,000 MG PO TID (Reported) Aspirin (Aspirin) 81 Mg Tablet 81 MG PO DAILY (Reported) Atorvastatin Calcium (Atorvastatin Calcium) 40 Mg Tablet 40 MG PO HS Prescribed by: ANDRIY DICKERSON MD Budesonide/Formoterol 160-4.5 mcg Inh (Symbicort 160-4.5 mcg Inh) 120 Puff Inhaler 1 PUFF INHALATION BID Prescribed by: ANDRIY DICKERSON MD Cephalexin (Keflex) 500 Mg Capsule 500 MG PO QID Prescribed by: ANDRIY DICKERSON MD Ferrous Sulfate (Feosol) 325 Mg Tablet 325 MG PO DAILYWM Prescribed by: ANDRIY DICKERSON MD Furosemide (Furosemide) 40 Mg Tablet 40 MG PO DAILY (Reported) Furosemide (Furosemide) 40 Mg Tablet 40 MG PO BID Prescribed by: ANDRIY DICKERSON MD Isosorbide MN ER (Isosorbide MN ER) 60 Mg Tab.er.24h 60 MG PO DAILY Prescribed by: ANDRIY DICKERSON MD Metoprolol Succinate ER (Metoprolol Succinate ER) 25 Mg Tab.er.24h 25 MG PO BID (Reported) Metoprolol Succinate ER (Metoprolol Succinate ER) 25 Mg Tab.er.24h 25 MG PO BID Prescribed by: ANDRIY DICKERSON MD Omeprazole (Omeprazole) 20 Mg Capsule.dr 20 MG PO DAILY (Reported) Potassium Chloride (K-Tab ER) 8 Meq Tablet.er 8 MEQ PO DAILY Prescribed by: ANDRIY DICKERSON MD Prazosin (Minipress) 1 Mg Capsule 1 MG PO HS Prescribed by: ANDRIY DICKERSON MD Sertraline HCl (Sertraline) 50 Mg Tablet 50 MG PO HS (Reported) Simethicone (Gas-X) 80 Mg Tablet 160 MG PO QID (Reported) As needed Albuterol Neb Soln (Albuterol Neb Soln) 2.5 Mg/3 Ml Vial.neb 2.5 MG IH QID PRN PRN For Shortness of Breath (Reported) Albuterol Sulfate (Ventolin HFA Inhaler) 200 Puff/18 Gm Inhaler 2 PUFF INH QID PRN PRN For Wheezing (Reported) Docusate Sodium (Docusate Sodium) 250 Mg Capsule 200 MG PO BID PRN PRN For Constipation (Reported) Nitroglycerin SL (Nitrostat) 0.4 Mg Tab.subl 0.3 MG SL Q5MIN PRN PRN For Chest Pain (Reported) Oxycodone (Roxicodone) 5 Mg Tablet 2.5 MG PO Q4H PRN PRN For Pain (Reported) Oxycodone (Roxicodone) 5 Mg Tablet 5 MG PO Q4H PRN PRN For Pain (Reported) Followup Plan Follow-up plan Follow up with Dr. Jeter on 03/19/16; one of the doctors wilson care of you in the hospital spoke with this doctor who agrees to see you in follow up as noted above. Also follow up with your primary care provider soon. Discharge Diet: No restrictions Discharge Activity: Limited until seen by PCP copies to: James Viveros MD; Kavitha Nolasco MD, D Geoffrey MD Mar 15, 2016 10:31
[2016-06-22] MEDS ORDERED: AMOX-366 PO (10:23)
== END 2016-03-15 12:35 | disposition home or self-care (01) ==
LOC: EDBD 16:17 → SED 16:17 → EDUNIT# 16:17 → OSC 03-15 02:07 → CCU 03-15 04:26
PROVIDERS: ADMIT Specialist; ATTEND Specialist
DX: J96.92 Respiratory failure, unspecified with hypercapnia (principal); K43.5 Parastomal hernia without obstruction or gangrene; K43.9 Ventral hernia without obstruction or gangrene; J44.9 Chronic obstructive pulmonary disease, unspecified; I50.9 Heart failure, unspecified; I48.2 Chronic atrial fibrillation; F43.10 Post-traumatic stress disorder, unspecified; I25.10 Atherosclerotic heart disease of native coronary artery without angina pectoris; Z95.1 Presence of aortocoronary bypass graft; Z95.4 Presence of other heart-valve replacement; Z93.3 Colostomy status; K55.9 Vascular disorder of intestine, unspecified; Z95.0 Presence of cardiac pacemaker; Z99.81 Dependence on supplemental oxygen; N31.9 Neuromuscular dysfunction of bladder, unspecified
CPT/HCPCS: 36415; 36620; 74177; 80048; 80053; 81000; 82375; 82803; 83605; 83690; 83735; 84484; 85025; 87081; 87086; 87088; 87186; 94799; 96374; 96375; 96376; 99285; J1170; J2405; Q9967

== ENCOUNTER 2016-03-23 08:55 | Emergency (ER) | payer OTHER ==
[2016-03-23 09:04] VITALS: BP 109/65; PULSE 74; RESP 16; O2SAT 89
--- NOTE | 2016-03-23 09:33 | ED.REPORT ---
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 The pain feels similar to previous recurrences. The patient has attempted to reduce this x4 this morning, with minimal success. Pt reports mild nausea with no vomiting. Nursing Notes Stated Complaint: HERNIA Chief Complaint: Male Abdominal Pain Nursing Notes Reviewed: Yes (SlidePay not reconciled) Allergies: Coded Allergies: morphine (Verified Allergy, Intermediate, RASH, 03/23/16) Scheduled Acetaminophen (Acetaminophen) 500 Mg Tablet 1,000 MG PO TID Aspirin (Aspirin) 81 Mg Tablet 81 MG PO DAILY Atorvastatin Calcium (Atorvastatin Calcium) 40 Mg Tablet 40 MG PO HS Budesonide/Formoterol 160-4.5 mcg Inh (Symbicort 160-4.5 mcg Inh) 120 Puff Inhaler 1 PUFF INHALATION BID Cephalexin (Keflex) 500 Mg Capsule 500 MG PO QID Ferrous Sulfate (Feosol) 325 Mg Tablet 325 MG PO DAILYWM Furosemide (Furosemide) 40 Mg Tablet 40 MG PO DAILY Furosemide (Furosemide) 40 Mg Tablet 40 MG PO BID Isosorbide MN ER (Isosorbide MN ER) 60 Mg Tab.er.24h 60 MG PO DAILY Metoprolol Succinate ER (Metoprolol Succinate ER) 25 Mg Tab.er.24h 25 MG PO BID Metoprolol Succinate ER (Metoprolol Succinate ER) 25 Mg Tab.er.24h 25 MG PO BID Omeprazole (Omeprazole) 20 Mg Capsule.dr 20 MG PO DAILY Potassium Chloride (K-Tab ER) 8 Meq Tablet.er 8 MEQ PO DAILY Prazosin (Minipress) 1 Mg Capsule 1 MG PO HS Sertraline HCl (Sertraline) 50 Mg Tablet 50 MG PO HS Simethicone (Gas-X) 80 Mg Tablet 160 MG PO QID Scheduled PRN Albuterol Neb Soln (Albuterol Neb Soln) 2.5 Mg/3 Ml Vial.neb 2.5 MG IH QID PRN PRN For Shortness of Breath Albuterol Sulfate (Ventolin HFA Inhaler) 200 Puff/18 Gm Inhaler 2 PUFF INH QID PRN PRN For Wheezing Docusate Sodium (Docusate Sodium) 250 Mg Capsule 200 MG PO BID PRN PRN For Constipation Nitroglycerin SL (Nitrostat) 0.4 Mg Tab.subl 0.3 MG SL Q5MIN PRN PRN For Chest Pain Oxycodone (Roxicodone) 5 Mg Tablet 2.5 MG PO Q4H PRN PRN For Pain Oxycodone (Roxicodone) 5 Mg Tablet 5 MG PO Q4H PRN PRN For Pain oxyCODONE (oxyCODONE) 5 Mg Tablet 5-10 MG PO Q6H PRN PRN For Pain General Time Seen by MD: 09:24 Chief Complaint Abdominal pain Hx Obtained From: Patient, EMS Arrived By: Ambulance Sudden in Onset?: Yes Onset Occurred: 1 - 4 hours ago Symptom Duration: Since onset Progression since Onset: Constant Location: : RLQ Quality: Painful Severity: Current: Moderate Associated with: Reports: Nausea, Denies: Vomiting Pertinent Negative: Relieved by nothing Recent Healthcare: Recent doctor visit Similar Sx Previous: Yes Past Medical History Past Medical History Notes: PCP: Dr. Viveros at the [place] Past Medical History PAST MEDICAL HISTORY: 1. HTN 2. 3. He has history of COPD on home oxygen, which was started about three months ago. He was diagnosed to have COPD around 2006. Known FEV1 in 2006 of 0.96. No history of childhood asthma. 4. History of coronary artery disease, with history of coronary bypass grafting around May 2002 with bovine aortic valve replacement for aortic stenosis at the same time. He subsequently had a repeat coronary bypass grafting around 2006 or 2007, but I cannot confirm this. He said he had cardiac catheterization about 2 months ago at the [facility] and was told that one of his bypass grafts was fine, but the other one was probably obstructed, but stents were not placed. The patient had a previous echocardiogram on April 29, 2011, which revealed normal left ventricular systolic function, with ejection fraction of about 55% to 60%. There is moderate tricuspid regurgitation. There is a bioprosthetic aortic valve. The leaflets are not well seen. The peak velocity of 4.1 msec, which is compatible with [id number] aortic stenosis. Aortic valve area 0.79 cm squared. 5. He has a history of streptococcus viridans endocarditis in 2000, due to IV drug use. 6. 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 7. He has no history of thyroid dysfunction. 8. He has history of hyperlipidemia. 9. He has no history of cancer. 10. He has a diagnosis of posttraumatic stress disorder. 11. He has a history of hepatitis C infection. 12. He has a history of benign prostatic hypertrophy. 13. History of hiatal hernia. 14. History of ventral hernia. Reports: COPD, Congestive heart failure, Coronary artery disease, GERD, Hyperlipidemia Reports: Atrial fibrillation Past Surgical History Includes colon resection with colostomy in 2007 secondary to ischemic colitis. 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 cholecystectomy. aortic valve replacement (bovine) around 2002 for aortic valve stenosis associated with coronary bypass grafting. He again had coronary bypass grafting July 2007 (which was a redo CABG) Reports: Pacemaker insertion Family History Noncontributory Smoking History Former Smoker Social History currently residing at [facility] due to recent injuries (broken back, subdural hemorrhage) Alcohol Use: 1-3 per week Drug Use: In recovery Other Social History: Local resident Ambulatory Status Cane Review of Systems Respiratory: Denies: Shortness of breath Cardiovascular: Denies: Chest pain GI: Reports: Abdominal pain, Nausea, Denies: Vomiting Complete sys rev & neg: except as marked. Physical Exam Initial Vital Signs Vital Signs (First) Date Time Temp Pulse Resp B/P Pulse Ox O2 Delivery O2 Flow Rate FiO2 03/23/16 09:04 36.2 74 16 109/65 89 Room Air 03/23/16 10:41 2 Initial VS: Reviewed, Vital signs normal Head / Eyes: Atraumatic, Normocephalic Neck: Full range of motion Extremities: Vascular intact, Neuro intact Skin: Warm, Dry, No cyanosis Neurologic: Alert, Oriented, Nonfocal Psychiatric: Behavior normal, Normal thought content General/Constitutional: Awake, Alert Chronically ill. Respiratory: SOB at rest which pt reports is at baseline. Audible bronchospasm in all [place]. Cardiovascular: Heart rate NL, Regular rhythm, Heart sounds NL, Peripheral circulation NL Organomegaly / Mass / Hernia: Positive: Hernia is reducible Incisional hernia tense and tender. Able to reduce at bedside. Interpretation & Diagnostics Lab Results Interpretation Result Diagram: 03/23/16 1030 03/23/16 1030 Test 03/23/16 10:30 White Blood Count 7.7th/mm3 (3.8-10.1) Red Blood Count 3.52mil/mm3 (4.40-5.80) Hemoglobin 10.8g/dL (13.8-17.2) Hematocrit 34.0% (41.0-50.0) Mean Corpuscular Volume 96.6fL (81-100) Mean Corpuscular Hemoglobin 30.7pg (27.0-35.0) Mean Corpuscular Hemoglobin Concent 31.8% (32.0-37.0) Red Cell Distribution Width 13.3% (12.3-15.4) Platelet Count 166bil/L (150-400) Neutrophils (%) (Auto) 66.5% (40-74) Lymphocytes (%) (Auto) 17.6% (14-46) Monocytes (%) (Auto) 9.9% (4-12) Eosinophils (%) (Auto) 5.3% (0-5) Basophils (%) (Auto) 0.3% (0-3) Sodium Level 136mEq/L (134-144) Potassium Level 4.1mEq/L (3.5-5.2) Chloride Level 96mEq/L (97-108) Carbon Dioxide Level 28mmol/L (18-29) Blood Urea Nitrogen 20mg/dL (8-27) Creatinine 0.95mg/dL (0.76-1.27) Estimat Glomerular Filtration Rate 81mL/min (>59) Glucose Level 113mg/dL (60-99) Calcium Level 9.0mg/dL (8.5-10.1) Total Bilirubin 0.4mg/dL (0.0-1.2) Aspartate Amino Transf (AST/SGOT) 17U/L (0-50) Alanine Aminotransferase (ALT/SGPT) 12U/L (0-44) Alkaline Phosphatase 90U/L (25-160) Total Protein 6.8g/dL (6.4-8.4) Albumin 3.5g/dL (3.4-5.0) Hold Perez Top Tube Received (Received) Lab Results Interpretation: CBC normal, no leukocytosis CMP normal, normal CO2, no acidosis General Lab Results Interp 1: Labs reviewed Procedures Procedure Notes: Manual reduction of incarcerated abdominal hernia was performed at bedside without difficulty Re-Eval/Medical Decision Med Decision/Clinical Course This is an 80-year-old male who presents complaining of hernia pain for few hours. Patient's had a chronic incisional hernia but has severe underlying cardiopulmonary disease and a poor surgical candidate, and is have for an intermediate incarcerations. He presents complaining of pain, some nausea-but no vomiting. Hoarse no change in his baseline respiratory status. He tells me he has an appointment again to see a surgeon to discuss surgical repair, despite the risks, in the next few days. On exam he does have a tender incisional hernia just above the umbilicus, and just medial to his colostomy site. However, I was able to manually reduce the hernia without difficulty at the bedside with marked improvement. This has happened (rancid incarcerated) a number of times previously, and the patient is well known to me. He clinically did well. He did report some titrated Dilaudid and was kept for a period of observation. Repeat exams and straight no tenderness, feels much improved. I am not finding evidence to indicate ischemic bowel. His labs are normal. He clinically appears well. He is comfortable on reexam. He is a reasonable candidate for discharge and can keep the outpatient surgical consulation. Source of Hx: Old records Time of Eval: 11:12 Re-Evaluation/Progress Note: Pt's pain is much improved. Pt updated of labs. Discussed plan for d/c and f/u. All questions addressed. Time of Eval: 13:41 Re-Evaluation/Progress Note: After finishing his soup, pt complains that his hernia recurred. This was manually reduced again and the patient is discharged home. Differential Diagnosis: Positive: Acute abdominal pain, Negative: Dyspepsia, Esophageal rupture, Gun shot wound abdomen, Pancreatitis , Stab wound abdomen Counseled Regarding: Diagnosis, Lab results, Need for follow-up, When/why to return to ED Discharge & Departure Primary Impression: Incisional hernia Obstruction and gangrene presence: without obstruction or gangrene Qualified Code: K43.2 - Incisional hernia without obstruction or gangrene Additional Impression: Incarcerated hernia Disposition: Home Vital Signs - All Vital Signs Date Time Temp Pulse Resp B/P Pulse Ox O2 Delivery O2 Flow Rate FiO2 03/23/16 13:36 36.2 70 16 118/64 95 Nasal Cannula 2 1/9/17 10:41 72 18 94 Nasal Cannula 2 03/23/16 09:04 36.2 74 16 109/65 89 Room Air )( All Prior VS Reviewed: Yes Condition: Improved 1. Your hernia was temporarily incarcerated again today, and we were able to reduce it in the emergency department. 2. Continue current care. 3. Keep your appointment with the surgeons for potential repair. 4. Return again if new or worsening symptoms. Referrals: NOPCP (PCP) Scribe Attestation Portions of this note were transcribed by Karina Boyd. I, (Dr. Fermin) personally performed the history, physical exam and medical decision-making; I reviewed and confirmed the accuracy of the information in the transcribed note. Signed by: Karina Boyd. 03/23/2016, 1114 Roger Fermin MD Mar 23, 2016 09:33 Karina Boyd Mar 23, 2016 09:56
[2016-03-23] MEDS ORDERED: Albuterol 2.5 mg/3 mL Inhalation Solution NEB ONE (09:55)
[2016-03-23] MEDS ORDERED: Albuterol-Ipratropium 3 mL Inhalation Solution NEB ONE (09:55)
[2016-03-23] MEDS ORDERED: Ondansetron 2 mg/mL 2 mL Inj IVPUSH ONE (09:55)
[2016-03-23] MEDS: HYDROmorphone 1 mg/mL Inj IVPUSH PRN ×2 (10:21→11:30)
[2016-03-23 10:41] VITALS: PULSE 72; RESP 18; O2SAT 94
[2016-03-23 10:44] LABS: BASOPHILS % (AUTO) 0.3 % (0-3); EOSINOPHILS % (AUTO) 5.3 % (0-5); MONOCYTES % (AUTO) 9.9 % (4-12); Mean Corpuscular Hemoglobin 30.7 pg (27.0-35.0); Mean Corpuscular Volume 96.6 fL (81-100); NEUTROPHILS % (AUTO) 66.5 % (40-74); Platelet Count 166 bil/L (150-400)
[2016-03-23 13:36] VITALS: BP 118/64; PULSE 70; RESP 16; O2SAT 95
[2016-03-23] MEDS ORDERED: OXYC5TAB72 PO (13:46)
[2016-06-22] MEDS ORDERED: AMOX-366 PO (10:23)
== END 2016-03-23 13:37 | disposition home or self-care (01) ==
LOC: SED 08:55
DX: K43.0 Incisional hernia with obstruction, without gangrene (principal); R11.0 Nausea; I25.10 Atherosclerotic heart disease of native coronary artery without angina pectoris; I11.0 Hypertensive heart disease with heart failure; I50.9 Heart failure, unspecified; I48.91 Unspecified atrial fibrillation; J44.9 Chronic obstructive pulmonary disease, unspecified; K21.9 Gastro-esophageal reflux disease without esophagitis; E78.5 Hyperlipidemia, unspecified; Z95.4 Presence of other heart-valve replacement; Z95.1 Presence of aortocoronary bypass graft; Z95.0 Presence of cardiac pacemaker; Z90.49 Acquired absence of other specified parts of digestive tract; Z79.82 Long term (current) use of aspirin; Z87.891 Personal history of nicotine dependence; Z88.5 Allergy status to narcotic agent
CPT/HCPCS: 36415; 80053; 85025; 94640; 94664; 96374; 96375; 96376; 99285; J1170; J2405; J7613; J7620

== ENCOUNTER 2016-03-24 16:47 | Emergency (ER) | payer OTHER ==
[~2016-03-24] VITALS: Ht 167.6 cm; Wt 65.0 kg
[~2016-03-24 16:47] MED LIST changes: +OXYC5TAB72 PO
[2016-03-24 17:15] VITALS: BP 96/61; PULSE 76; RESP 12; O2SAT 98
[2016-03-24 18:15] LABS: BASOPHILS % (AUTO) 0.5 % (0-3); EOSINOPHILS % (AUTO) 4.1 % (0-5); Mean Corpuscular Hemoglobin 30.8 pg (27.0-35.0); Mean Corpuscular Volume 96.9 fL (81-100); NEUTROPHILS % (AUTO) 74.6 % (40-74); Platelet Count 186 bil/L (150-400)
[2016-03-24] MEDS ORDERED: HYDROmorphone 1 mg/mL Inj IVPUSH PRN (20:35)
--- NOTE | 2016-03-24 20:56 | ED.REPORT ---
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 The pain feels similar to previous recurrences at 8-10/10 pain. The patient has attempted to reduce this morning, with minimal success. Pt reports mild nausea with no vomiting. Decreased ostomy output for 2 days. Nursing Notes Stated Complaint: RECURRENT HERNIA Chief Complaint: Male Abdominal Pain Nursing Notes Reviewed: Yes Allergies: Coded Allergies: morphine (Verified Allergy, Intermediate, RASH, 03/23/16) Scheduled Acetaminophen (Acetaminophen) 500 Mg Tablet 1,000 MG PO TID Aspirin (Aspirin) 81 Mg Tablet 81 MG PO DAILY Atorvastatin Calcium (Atorvastatin Calcium) 40 Mg Tablet 40 MG PO HS Budesonide/Formoterol 160-4.5 mcg Inh (Symbicort 160-4.5 mcg Inh) 120 Puff Inhaler 1 PUFF INHALATION BID Cephalexin (Keflex) 500 Mg Capsule 500 MG PO QID Ferrous Sulfate (Feosol) 325 Mg Tablet 325 MG PO DAILYWM Furosemide (Furosemide) 40 Mg Tablet 40 MG PO DAILY Furosemide (Furosemide) 40 Mg Tablet 40 MG PO BID Isosorbide MN ER (Isosorbide MN ER) 60 Mg Tab.er.24h 60 MG PO DAILY Metoprolol Succinate ER (Metoprolol Succinate ER) 25 Mg Tab.er.24h 25 MG PO BID Metoprolol Succinate ER (Metoprolol Succinate ER) 25 Mg Tab.er.24h 25 MG PO BID Omeprazole (Omeprazole) 20 Mg Capsule.dr 20 MG PO DAILY Potassium Chloride (K-Tab ER) 8 Meq Tablet.er 8 MEQ PO DAILY Prazosin (Minipress) 1 Mg Capsule 1 MG PO HS Sertraline HCl (Sertraline) 50 Mg Tablet 50 MG PO HS Simethicone (Gas-X) 80 Mg Tablet 160 MG PO QID Scheduled PRN Albuterol Neb Soln (Albuterol Neb Soln) 2.5 Mg/3 Ml Vial.neb 2.5 MG IH QID PRN PRN For Shortness of Breath Albuterol Sulfate (Ventolin HFA Inhaler) 200 Puff/18 Gm Inhaler 2 PUFF INH QID PRN PRN For Wheezing Docusate Sodium (Docusate Sodium) 250 Mg Capsule 200 MG PO BID PRN PRN For Constipation Nitroglycerin SL (Nitrostat) 0.4 Mg Tab.subl 0.3 MG SL Q5MIN PRN PRN For Chest Pain Oxycodone (Roxicodone) 5 Mg Tablet 2.5 MG PO Q4H PRN PRN For Pain Oxycodone (Roxicodone) 5 Mg Tablet 5 MG PO Q4H PRN PRN For Pain oxyCODONE (oxyCODONE) 5 Mg Tablet 5-10 MG PO Q6H PRN PRN For Pain General Time Seen by MD: 19:35 Chief Complaint Abdominal pain Hx Obtained From: Patient Sudden in Onset?: Yes Past Medical History Past Medical History Notes: PCP: Dr. Viveros at the [facility] Past Medical History PAST MEDICAL HISTORY: 1. HTN 2. 3. He has history of COPD on home oxygen, which was started about three months ago. He was diagnosed to have COPD around 2006. Known FEV1 in 2006 of 0.96. No history of childhood asthma. 4. History of coronary artery disease, with history of coronary bypass grafting around May 2002 with bovine aortic valve replacement for aortic stenosis at the same time. He subsequently had a repeat coronary bypass grafting around 2006 or 2007, but I cannot confirm this. He said he had cardiac catheterization about 2 months ago at the [facility] and was told that one of his bypass grafts was fine, but the other one was probably obstructed, but stents were not placed. The patient had a previous echocardiogram on April 29, 2011, which revealed normal left ventricular systolic function, with ejection fraction of about 55% to 60%. There is moderate tricuspid regurgitation. There is a bioprosthetic aortic valve. The leaflets are not well seen. The peak velocity of 4.1 msec, which is compatible with [id number] aortic stenosis. Aortic valve area 0.79 cm squared. 5. He has a history of streptococcus viridans endocarditis in 2000, due to IV drug use. 6. 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 7. He has no history of thyroid dysfunction. 8. He has history of hyperlipidemia. 9. He has no history of cancer. 10. He has a diagnosis of posttraumatic stress disorder. 11. He has a history of hepatitis C infection. 12. He has a history of benign prostatic hypertrophy. 13. History of hiatal hernia. 14. History of ventral hernia. Reports: COPD, Congestive heart failure, Coronary artery disease, GERD, Hyperlipidemia, Hypertension Reports: Atrial fibrillation Past Surgical History Includes colon resection with colostomy in 2007 secondary to ischemic colitis. 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 cholecystectomy. aortic valve replacement (bovine) around 2002 for aortic valve stenosis associated with coronary bypass grafting. He again had coronary bypass grafting July 2007 (which was a redo CABG) Reports: Pacemaker insertion Family History Noncontributory Smoking History Former Smoker Social History Residing at [facility] due to recent injuries (broken back, subdural hemorrhage)- this was a previous reporT, Today he states he lives in a trailer with a roommate in [facility]. Alcohol Use: 1-3 per week Drug Use: In recovery Other Social History: Local resident Ambulatory Status Cane Review of Systems Review of Systems Note: A comprehensive review of systems was conducted with the patient and found to be negative except as above in the History of Present Illness. Physical Exam Physical Exam Notes: General: Elderly gentleman in mild to moderate distress, well-developed, well-nourished, appropriately interactive. HEENT: Normocephalic, atraumatic. External ears without defect. Pupils equal, round, and reactive to light and accommodation. Anicteric sclerae, moist conjunctivae, and no lid lag. Oropharynx free of erythema and cobble stoning with moist mucosa. Edentulous. Neck: Supple with full range of motion. No jugular venous distension. No bruits. No lymphadenopathy or thyromegaly. Cardiovascular: Regular rate and rhythm with no murmurs, rubs, or gallops appreciated Pulmonary: Diffuse rhonci with moderate wheezes bilaterally with no crackles. Normal respiratory effort with no use of accessory muscles with 2 L O2 nasal canula. Abdomen: Ostomy in place with scant output. Soft, tender to palpation in the periumbilical area as well as a large cantalope sized right sided abdominal hernia, just inferior to ostomy, with moderate rebound tenderness. Hepatosplenomegaly not appreciated due to tenderness, no masses appreciated. Extremities: No clubbing, cyanosis, edema, or lymphadenopathy appreciated. Skin: Normal temperature, turgor, and texture; no rash, ulcers, or subcutaneous nodules appreciated. Neurological: Cranial nerves grossly intact. Normal muscle strength, tone, and bulk. Reflexes, coordination, and sensory function within normal limits. No known gait impairment. Psychiatric: Normal mood and affect. Alert and oriented to person, place, and time. Initial Vital Signs Vital Signs (First) Date Time Temp Pulse Resp B/P Pulse Ox O2 Delivery O2 Flow Rate FiO2 03/24/16 17:15 37.1 76 12 96/61 98 Nasal Cannula 4 Interpretation & Diagnostics Interpretation & Diagnostics: Labs within normal limits. Will attempt IV pain meds then manual hernia reduction. Lab Results Interpretation Result Diagram: 03/24/16 1806 03/24/16 1806 Test 03/24/16 18:06 White Blood Count 8.4th/mm3 (3.8-10.1) Red Blood Count 3.60mil/mm3 (4.40-5.80) Hemoglobin 11.1g/dL (13.8-17.2) Hematocrit 34.9% (41.0-50.0) Mean Corpuscular Volume 96.9fL (81-100) Mean Corpuscular Hemoglobin 30.8pg (27.0-35.0) Mean Corpuscular Hemoglobin Concent 31.8% (32.0-37.0) Red Cell Distribution Width 13.1% (12.3-15.4) Platelet Count 186bil/L (150-400) Neutrophils (%) (Auto) 74.6% (40-74) Lymphocytes (%) (Auto) 12.4% (14-46) Monocytes (%) (Auto) 8.0% (4-12) Eosinophils (%) (Auto) 4.1% (0-5) Basophils (%) (Auto) 0.5% (0-3) Sodium Level 133mEq/L (134-144) Potassium Level 4.3mEq/L (3.5-5.2) Chloride Level 92mEq/L (97-108) Carbon Dioxide Level 29mmol/L (18-29) Blood Urea Nitrogen 19mg/dL (8-27) Creatinine 1.07mg/dL (0.76-1.27) Estimat Glomerular Filtration Rate 70mL/min (>59) Glucose Level 116mg/dL (60-99) Lactic Acid Level 0.7mmol/L (0.4-2.0) Calcium Level 8.9mg/dL (8.5-10.1) Total Bilirubin 0.6mg/dL (0.0-1.2) Aspartate Amino Transf (AST/SGOT) 18U/L (0-50) Alanine Aminotransferase (ALT/SGPT) 12U/L (0-44) Alkaline Phosphatase 90U/L (25-160) Total Protein 7.3g/dL (6.4-8.4) Albumin 3.5g/dL (3.4-5.0) Hold Perez Top Tube Received (Received) Procedures Procedure Notes: Abdominal hernia was manually reducible. Re-Eval/Medical Decision Med Decision/Clinical Course Discharge & Departure Shift Change Sign-Out Discussed Complaint(s): Yes Laboratory Evaluation: Lab evaluation discussed Procedures: Results discussed Response to Therapy: Improved Primary Impression: Hernia of small intestine Disposition: Home Vital Signs - All Vital Signs Date Time Temp Pulse Resp B/P Pulse Ox O2 Delivery O2 Flow Rate FiO2 03/24/16 23:00 85 18 102/59 92 Room Air 03/24/16 21:56 36.9 74 14 102/72 98 Room Air 03/24/16 17:15 37.1 76 12 96/61 98 Nasal Cannula 4 Condition: Stable Additional Instructions: Your abdominal hernia was reduced successfully. Your labs and vital signs were stable here at [facility] Emergency department. We will send you home with Hydrocodone for pain control. - When taking pain medications DO NOT drive and DO NOT drink alcohol and DO NOT take extra acetaminophen (Tylenol). IF you have not emptied your colostomy in 6 hours time, please come back to the Emergency department. Referrals: NOPCP (PCP) 1 Week [facility] Attending Statement I personally took a history of performed a physical examination. With a dose of IM Dilaudid we are able to easily reduce the hernia. His colostomy bag started to have stool and gas output. His abdomen was soft and not at all tender. No evidence of a bowel obstruction. Laboratory work is very reassuring. Due to the fact they are able to easily reduce the hernia I do not feel that advanced imaging would offer anything in this case. I do recommend close outpatient follow-up. copies to: [facility] NEREIDA HELLER DO Mar 24, 2016 19:57 Daniel Starr DO Mar 25, 2016 03:04
[2016-03-24] MEDS ORDERED: HYDROmorphone 1 mg/mL Inj IM PRN (21:00)
[2016-03-24 21:56] VITALS: BP 102/72; PULSE 74; RESP 14; O2SAT 98
[2016-03-24] MEDS ORDERED: _HYDROcodone/APAP 5-325 mg Tablet PO PRN ×2 (22:05→22:10)
[2016-03-24 23:00] VITALS: BP 102/59; PULSE 85; RESP 18; O2SAT 92
[2016-06-22] MEDS ORDERED: AMOX-366 PO (10:23)
== END 2016-03-24 23:00 | disposition home or self-care (01) ==
LOC: SED 16:47 → EDBD 16:47 → SED 23:00
DX: K45.8 Other specified abdominal hernia without obstruction or gangrene (principal); I10 Essential (primary) hypertension; J44.9 Chronic obstructive pulmonary disease, unspecified; I25.10 Atherosclerotic heart disease of native coronary artery without angina pectoris; Z87.891 Personal history of nicotine dependence; Z87.19 Personal history of other diseases of the digestive system; Z95.0 Presence of cardiac pacemaker; Z90.49 Acquired absence of other specified parts of digestive tract; Z99.81 Dependence on supplemental oxygen; Z95.1 Presence of aortocoronary bypass graft; Z86.79 Personal history of other diseases of the circulatory system; Z93.3 Colostomy status; Z79.82 Long term (current) use of aspirin; Z79.51 Long term (current) use of inhaled steroids; Z88.5 Allergy status to narcotic agent
CPT/HCPCS: 36415; 80053; 83605; 85025; 96372; 99284; J1170

== ENCOUNTER 2016-03-26 13:30 | Emergency (ER) | payer OTHER ==
[~2016-03-26] VITALS: Ht 167.6 cm; Wt 143.0 kg
[2016-03-26 13:34] VITALS: BP 131/83; PULSE 88; O2SAT 96
--- NOTE | 2016-03-26 13:59 | ED.REPORT ---
HPI- Male Date of Service Mar 26, 2016 ED Provider: Josue Flores MD Patient is an 80 year old male who presents to the ED complaining of penile pain which was getting worse this afternoon. He reports that he has had similar pain before but that it comes and goes. He took pain medication without relief but is asymptomatic upon examination. He denies vomiting, fever, or any other symptoms. He was on his way home from a surgery appointment in [place] when the pain in the penis became intolerable. He denies any new trauma. Nursing Notes Stated Complaint: UNABLE TO URINATE Chief Complaint: Male Abdominal Pain Nursing Notes Reviewed: Yes Allergies: Coded Allergies: morphine (Verified Allergy, Intermediate, RASH, 03/23/16) Scheduled Acetaminophen (Acetaminophen) 500 Mg Tablet 1,000 MG PO TID Aspirin (Aspirin) 81 Mg Tablet 81 MG PO DAILY Atorvastatin Calcium (Atorvastatin Calcium) 40 Mg Tablet 40 MG PO HS Budesonide/Formoterol 160-4.5 mcg Inh (Symbicort 160-4.5 mcg Inh) 120 Puff Inhaler 1 PUFF INHALATION BID Cephalexin (Keflex) 500 Mg Capsule 500 MG PO QID Ferrous Sulfate (Feosol) 325 Mg Tablet 325 MG PO DAILYWM Furosemide (Furosemide) 40 Mg Tablet 40 MG PO DAILY Furosemide (Furosemide) 40 Mg Tablet 40 MG PO BID Isosorbide MN ER (Isosorbide MN ER) 60 Mg Tab.er.24h 60 MG PO DAILY Metoprolol Succinate ER (Metoprolol Succinate ER) 25 Mg Tab.er.24h 25 MG PO BID Metoprolol Succinate ER (Metoprolol Succinate ER) 25 Mg Tab.er.24h 25 MG PO BID Omeprazole (Omeprazole) 20 Mg Capsule.dr 20 MG PO DAILY Potassium Chloride (K-Tab ER) 8 Meq Tablet.er 8 MEQ PO DAILY Prazosin (Minipress) 1 Mg Capsule 1 MG PO HS Sertraline HCl (Sertraline) 50 Mg Tablet 50 MG PO HS Simethicone (Gas-X) 80 Mg Tablet 160 MG PO QID Scheduled PRN Albuterol Neb Soln (Albuterol Neb Soln) 2.5 Mg/3 Ml Vial.neb 2.5 MG IH QID PRN PRN For Shortness of Breath Albuterol Sulfate (Ventolin HFA Inhaler) 200 Puff/18 Gm Inhaler 2 PUFF INH QID PRN PRN For Wheezing Docusate Sodium (Docusate Sodium) 250 Mg Capsule 200 MG PO BID PRN PRN For Constipation Nitroglycerin SL (Nitrostat) 0.4 Mg Tab.subl 0.3 MG SL Q5MIN PRN PRN For Chest Pain Oxycodone (Roxicodone) 5 Mg Tablet 2.5 MG PO Q4H PRN PRN For Pain Oxycodone (Roxicodone) 5 Mg Tablet 5 MG PO Q4H PRN PRN For Pain oxyCODONE (oxyCODONE) 5 Mg Tablet 5-10 MG PO Q6H PRN PRN For Pain General Time Seen by MD: 13:57 Chief Complaint Other (Inguinal pain) Hx Obtained From: Patient Arrived By: Walk-in Similar Sx Previous: Yes Past Medical History Past Medical History Notes: PCP: Dr. Viveros at the [facility] Past Medical History PAST MEDICAL HISTORY: 1. HTN 2. murmur 3. He has history of COPD on home oxygen, which was started about three months ago. He was diagnosed to have COPD around 2006. Known FEV1 in 2006 of 0.96. No history of childhood asthma. 4. History of coronary artery disease, with history of coronary bypass grafting around May 2002 with bovine aortic valve replacement for aortic stenosis at the same time. He subsequently had a repeat coronary bypass grafting around 2006 or 2007, but I cannot confirm this. He said he had cardiac catheterization about 2 months ago at the [facility] and was told that one of his bypass grafts was fine, but the other one was probably obstructed, but stents were not placed. The patient had a previous echocardiogram on April 29, 2011, which revealed normal left ventricular systolic function, with ejection fraction of about 55% to 60%. There is moderate tricuspid regurgitation. There is a bioprosthetic aortic valve. The leaflets are not well seen. The peak velocity of 4.1 msec, which is compatible with pqyvsorv-ya-[id number] aortic stenosis. Aortic valve area 0.79 cm squared. 5. He has a history of streptococcus viridans endocarditis in 2000, due to IV drug use. 6. 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 7. He has no history of thyroid dysfunction. 8. He has history of hyperlipidemia. 9. He has no history of cancer. 10. He has a diagnosis of posttraumatic stress disorder. 11. He has a history of hepatitis C infection. 12. He has a history of benign prostatic hypertrophy. 13. History of hiatal hernia. 14. History of ventral hernia. Reports: COPD, Congestive heart failure, Coronary artery disease, GERD, Hyperlipidemia, Hypertension Reports: Atrial fibrillation Past Surgical History Includes colon resection with colostomy in 2007 secondary to ischemic colitis. 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 cholecystectomy. aortic valve replacement (bovine) around 2002 for aortic valve stenosis associated with coronary bypass grafting. He again had coronary bypass grafting July 2007 (which was a redo CABG) Bilat achilles tendon repair Reports: Angioplasty Reports: Pacemaker insertion Family History Noncontributory Smoking History Former Smoker Social History Residing at [facility] due to recent injuries (broken back, subdural hemorrhage)- this was a previous reporT, Today he states he lives in a trailer with a roommate in [facility]. Alcohol Use: 1-3 per week Drug Use: In recovery Other Social History: Local resident Ambulatory Status Cane Review of Systems +inguinal pain Constitutional: Denies: Fever GI: Denies: Nausea, Vomiting Complete sys rev & neg: except as marked. Physical Exam Initial Vital Signs Vital Signs (First) Date Time Temp Pulse Resp B/P Pulse Ox O2 Delivery O2 Flow Rate FiO2 03/26/16 13:34 36.8 88 131/83 96 Room Air Initial VS: Reviewed General/Constitutional: Well-developed Head / Eyes: Atraumatic, Normocephalic Neck: Full range of motion Respiratory: No respiratory distress Skin: Warm, Dry Neurologic: Alert, Oriented, Nonfocal Psychiatric: Mood/affect normal, Behavior normal, Normal thought content Male Genitourinary: Testes NL Some blood around the colvin glandis, but none at the meatus. Interpretation & Diagnostics Lab Results Interpretation Result Diagram: 03/26/16 1425 03/26/16 1425 Test 03/26/16 13:52 03/26/16 13:55 03/26/16 14:25 03/26/16 14:34 Hold Urine Received (Received) Urine Color Yellow (YELLOW) Urine Appearance Cloudy (CLEAR,HAZY) Urine pH 6.0 (5.0-8.0) Urine Specific [place] 1.005 (1.003-1.035) Urine Protein Negativemg/dL (NEG,TRACE) Urine Glucose (UA) Negativemg/dL (NEGATIVE) Urine Ketones Negativemg/dL (NEGATIVE) Urine Occult Blood Small (NEGATIVE) Urine Nitrite Negative (NEGATIVE) Urine Bilirubin Negative (NEGATIVE) Urine Urobilinogen Normalmg/dL (NORMAL) Urine Leukocyte Esterase Large (NEGATIVE) Urine RBC 0-2/hpf (0-2) Urine WBC 11-50/hpf (0-5) Urine Epithelial Cells Occasional/hpf (NONE-MOD) Urine Crystals None seen (NONE SEEN) Urine Bacteria Moderate/hpf (NONE-FEW) Urine Hyaline Casts None/lpf (NONE) Urine Granular Casts None seen (NONE SEEN) Urine Waxy Casts None seen (NONE SEEN) Urine Red Blood Cell Casts None seen (NONE SEEN) Urine White Blood Cell Casts None seen (NONE SEEN) Urine Mucus None seen (None Seen) Urine Trichomonas None seen (NONE SEEN) Urine Yeast Moderate (NONE SEEN) Urinalysis Comment None Urine Culture Reflexed Indicated White Blood Count 8.3th/mm3 (3.8-10.1) Red Blood Count 3.52mil/mm3 (4.40-5.80) Hemoglobin 11.0g/dL (13.8-17.2) Hematocrit 33.5% (41.0-50.0) Mean Corpuscular Volume 95.2fL (81-100) Mean Corpuscular Hemoglobin 31.3pg (27.0-35.0) Mean Corpuscular Hemoglobin Concent 32.8% (32.0-37.0) Red Cell Distribution Width 13.0% (12.3-15.4) Platelet Count 193bil/L (150-400) Neutrophils (%) (Auto) 65.5% (40-74) Lymphocytes (%) (Auto) 21.5% (14-46) Monocytes (%) (Auto) 9.9% (4-12) Eosinophils (%) (Auto) 2.7% (0-5) Basophils (%) (Auto) 0.2% (0-3) Sodium Level 136mEq/L (134-144) Potassium Level 4.1mEq/L (3.5-5.2) Chloride Level 97mEq/L (97-108) Carbon Dioxide Level 27mmol/L (18-29) Blood Urea Nitrogen 25mg/dL (8-27) Creatinine 1.11mg/dL (0.76-1.27) Estimat Glomerular Filtration Rate 68mL/min (>59) Glucose Level 152mg/dL (60-99) Calcium Level 8.8mg/dL (8.5-10.1) Total Bilirubin 0.3mg/dL (0.0-1.2) Aspartate Amino Transf (AST/SGOT) 16U/L (0-50) Alanine Aminotransferase (ALT/SGPT) 10U/L (0-44) Alkaline Phosphatase 88U/L (25-160) Total Protein 7.1g/dL (6.4-8.4) Albumin 3.6g/dL (3.4-5.0) Hold Perez Top Tube Received (Received) Re-Eval/Medical Decision Re-Evaluation/Progress : Time of Eval: 15:27 Re-Evaluation/Progress Note: Discussed plan for discharge. Patient understands and agrees with plan. All questions addressed at this time. Patient's symptoms are completely resolved at this time. Counseled Regarding: Diagnosis, Need for follow-up, When/why to return to ED Discharge & Departure Impression: Primary Impression: Penile pain Disposition: Home Discharge Condition All VS Reviewed: Yes Condition: Improved Patient Instructions: How to Care for Your Lindsey Catheter (DC) Additional Instructions: No evidence of urinary tract infection or other serious metabolic problem. I recommend follow-up with urology to discuss the pain the you have in the penis. Referrals: [facility] Scribe Attestation Portions of this note were transcribed by Abran Reza. I, Dr. Flores personally performed the history, physical exam and medical decision-making; I reviewed and confirmed the accuracy of the information in the transcribed note. Signed by: Abran Reza 03/26/16, 1531 copies to: [facility] Josue Flores MD Mar 26, 2016 13:59 ABRAN REZA Mar 26, 2016 14:27
[2016-03-26 14:36] LABS: BASOPHILS % (AUTO) 0.2 % (0-3); EOSINOPHILS % (AUTO) 2.7 % (0-5); MONOCYTES % (AUTO) 9.9 % (4-12); Mean Corpuscular Hemoglobin 31.3 pg (27.0-35.0); Mean Corpuscular Volume 95.2 fL (81-100); NEUTROPHILS % (AUTO) 65.5 % (40-74); Platelet Count 193 bil/L (150-400)
[2016-03-26 15:03] LABS: APPEARANCE,URINE CLOUDY (CLEAR,HAZY); COLOR,URINE YELLOW (YELLOW); OCCULT BLOOD,URINE SMALL (NEGATIVE); UROBILINOGEN,URINE NORMAL (NORMAL)
[2016-03-26 15:04] LABS: YEAST,URINE MODERATE (NONE SEEN)
[2016-03-26 15:42] VITALS: BP 103/57; PULSE 78; RESP 18; O2SAT 98
[2016-06-22] MEDS ORDERED: AMOX-366 PO (10:23)
== END 2016-03-26 15:43 | disposition home or self-care (01) ==
LOC: SED 13:30
DX: N48.89 Other specified disorders of penis (principal); B95.2 Enterococcus as the cause of diseases classified elsewhere; I11.0 Hypertensive heart disease with heart failure; I50.9 Heart failure, unspecified; K21.9 Gastro-esophageal reflux disease without esophagitis; I25.10 Atherosclerotic heart disease of native coronary artery without angina pectoris; Z95.1 Presence of aortocoronary bypass graft; Z79.891 Long term (current) use of opiate analgesic; Z87.891 Personal history of nicotine dependence; Z79.82 Long term (current) use of aspirin; Z88.5 Allergy status to narcotic agent

== ENCOUNTER 2016-06-19 22:26 | Emergency (ER) | payer OTHER ==
[~2016-06-19] VITALS: Ht 167.6 cm; Wt 79.5 kg
[2016-06-19 22:33] VITALS: BP 120/81; PULSE 86; RESP 18; O2SAT 95
[2016-06-19 23:09] LABS: BASOPHILS % (AUTO) 0.4 % (0-3); EOSINOPHILS % (AUTO) 2.5 % (0-5); MONOCYTES % (AUTO) 8.9 % (4-12); Mean Corpuscular Hemoglobin 30.1 pg (27.0-35.0); NEUTROPHILS % (AUTO) 60.5 % (40-74); Platelet Count 162 bil/L (150-400)
--- NOTE | 2016-06-19 23:23 | ED.REPORT ---
HPI-Abd Pain M 40 and Over Date of Service Jun 19, 2016 ED Provider: Pam Espinoza MD 80 year old male with an extensive medical history presents to the ER via EMS complaining of two days of abdominal pain secondary to a ventral hernia. He is typically able to manually reduce the hernia, but states that it will not stay reduced. Pain is exacerbated by coughing and sneezing. Associated symptoms include nausea. He reports regular flatulence. Patient was seen by a GI specialist in [place] four days ago. Nursing Notes Stated Complaint: ABDOMINAL PAIN Chief Complaint: Male Abdominal Pain Nursing Notes Reviewed: Yes Allergies: Coded Allergies: morphine (Verified Allergy, Intermediate, RASH, 06/19/16) Scheduled Acetaminophen (Acetaminophen) 500 Mg Tablet 1,000 MG PO TID Aspirin (Aspirin) 81 Mg Tablet 81 MG PO DAILY Atorvastatin Calcium (Atorvastatin Calcium) 40 Mg Tablet 40 MG PO HS Budesonide/Formoterol 160-4.5 mcg Inh (Symbicort 160-4.5 mcg Inh) 120 Puff Inhaler 1 PUFF INHALATION BID Cephalexin (Keflex) 500 Mg Capsule 500 MG PO QID Ferrous Sulfate (Feosol) 325 Mg Tablet 325 MG PO DAILYWM Furosemide (Furosemide) 40 Mg Tablet 40 MG PO DAILY Furosemide (Furosemide) 40 Mg Tablet 40 MG PO BID Isosorbide MN ER (Isosorbide MN ER) 60 Mg Tab.er.24h 60 MG PO DAILY Metoprolol Succinate ER (Metoprolol Succinate ER) 25 Mg Tab.er.24h 25 MG PO BID Metoprolol Succinate ER (Metoprolol Succinate ER) 25 Mg Tab.er.24h 25 MG PO BID Omeprazole (Omeprazole) 20 Mg Capsule.dr 20 MG PO DAILY Potassium Chloride (K-Tab ER) 8 Meq Tablet.er 8 MEQ PO DAILY Prazosin (Minipress) 1 Mg Capsule 1 MG PO HS Sertraline HCl (Sertraline) 50 Mg Tablet 50 MG PO HS Simethicone (Gas-X) 80 Mg Tablet 160 MG PO QID Scheduled PRN Albuterol Neb Soln (Albuterol Neb Soln) 2.5 Mg/3 Ml Vial.neb 2.5 MG IH QID PRN PRN For Shortness of Breath Albuterol Sulfate (Ventolin HFA Inhaler) 200 Puff/18 Gm Inhaler 2 PUFF INH QID PRN PRN For Wheezing Docusate Sodium (Docusate Sodium) 250 Mg Capsule 200 MG PO BID PRN PRN For Constipation Nitroglycerin SL (Nitrostat) 0.4 Mg Tab.subl 0.3 MG SL Q5MIN PRN PRN For Chest Pain Oxycodone (Roxicodone) 5 Mg Tablet 2.5 MG PO Q4H PRN PRN For Pain Oxycodone (Roxicodone) 5 Mg Tablet 5 MG PO Q4H PRN PRN For Pain oxyCODONE (oxyCODONE) 5 Mg Tablet 5-10 MG PO Q6H PRN PRN For Pain General Time Seen by MD: 23:22 Chief Complaint Abdominal pain Hx Obtained From: Patient Arrived By: Ambulance Sudden in Onset?: No Onset Occurred: 2 days ago Symptom Duration: Since onset Location: : Diffuse Quality: Painful Severity: Current: Moderate Severity: Maximum: Moderate Associated with: Reports: Nausea, Denies: Fever, Vomiting Context Related History: Reports: Abdominal surgery Similar Sx Previous: Yes Past Medical History Past Medical History Notes: PCP: Dr. Viveros at the [facility] Past Medical History PAST MEDICAL HISTORY: 1. HTN 2. murmur 3. He has history of COPD on home oxygen, which was started about three months ago. He was diagnosed to have COPD around 2006. Known FEV1 in 2006 of 0.96. No history of childhood asthma. 4. History of coronary artery disease, with history of coronary bypass grafting around May 2002 with bovine aortic valve replacement for aortic stenosis at the same time. He subsequently had a repeat coronary bypass grafting around 2006 or 2007, but I cannot confirm this. He said he had cardiac catheterization about 2 months ago at the [facility] and was told that one of his bypass grafts was fine, but the other one was probably obstructed, but stents were not placed. The patient had a previous echocardiogram on April 29, 2011, which revealed normal left ventricular systolic function, with ejection fraction of about 55% to 60%. There is moderate tricuspid regurgitation. There is a bioprosthetic aortic valve. The leaflets are not well seen. The peak velocity of 4.1 msec, which is compatible with [id number]-[id number]-[id number] aortic stenosis. Aortic valve area 0.79 cm squared. 5. He has a history of streptococcus viridans endocarditis in 2000, due to IV drug use. 6. 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 7. He has no history of thyroid dysfunction. 8. He has history of hyperlipidemia. 9. He has no history of cancer. 10. He has a diagnosis of posttraumatic stress disorder. 11. He has a history of hepatitis C infection. 12. He has a history of benign prostatic hypertrophy. 13. History of hiatal hernia. 14. History of ventral hernia. Reports: COPD, Congestive heart failure, Coronary artery disease, GERD, Hyperlipidemia, Hypertension Reports: Atrial fibrillation Past Surgical History Includes colon resection with colostomy in 2007 secondary to ischemic colitis. 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 cholecystectomy. aortic valve replacement (bovine) around 2002 for aortic valve stenosis associated with coronary bypass grafting. He again had coronary bypass grafting July 2007 (which was a redo CABG) Bilat achilles tendon repair Reports: Angioplasty Reports: Pacemaker insertion Family History Noncontributory Smoking History Former Smoker Social History Residing at [facility] due to recent injuries (broken back, subdural hemorrhage)- this was a previous reporT, Today he states he lives in a trailer with a roommate in [facility]. Alcohol Use: 1-3 per week Drug Use: In recovery Other Social History: Local resident Ambulatory Status Cane Review of Systems Constitutional: Denies: Chills, Fever Respiratory: Denies: Non-productive cough GI: Reports: Abdominal pain, Nausea, Denies: Constipation, Hematemesis, Hematochezia, Vomiting Complete sys rev & neg: except as marked. Physical Exam Physical Exam Notes: Initial Vital Signs Vital Signs (First) Date Time Temp Pulse Resp B/P Pulse Ox O2 Delivery O2 Flow Rate FiO2 06/19/16 22:33 36.5 86 18 120/81 95 Room Air Initial VS: Reviewed Head / Eyes: Atraumatic, Normocephalic, PERRL Neck: Supple, Non-tender, Full range of motion Extremities: Vascular intact, Neuro intact, No swelling, No tenderness Skin: Warm, Dry, No cyanosis Neurologic: Alert, Oriented, Nonfocal General/Constitutional: Awake, Alert, Well developed Appearance / Presentation: Positive: Cachectic Chronically ill in appearance. Respiratory / Chest: No respiratory distress, No wheezing Coarse breath sounds bilaterally. Cardiovascular: Heart rate NL, Regular rhythm, Heart sounds NL, Peripheral circulation NL Abdomen: Soft, No guarding, No rebound Large ventral hernia next to colostomy site. Mild erythema over hernia, very tender to palpation. Somewhat reducible, not completely. Stoma is beefy red. Back: Inspection NL, Non-tender, No CVA tenderness Interpretation & Diagnostics Lab Results Interpretation Result Diagram: 06/19/16224406/19/165 Test 06/19/16 22:45 06/20/16 00:25 White Blood Count 10.2th/mm3 (3.8-10.1) Red Blood Count 4.15mil/mm3 (4.40-5.80) Hemoglobin 12.5g/dL (13.8-17.2) Hematocrit 38.6% (41.0-50.0) Mean Corpuscular Volume 93.0fL (81-100) Mean Corpuscular Hemoglobin 30.1pg (27.0-35.0) Mean Corpuscular Hemoglobin Concent 32.4% (32.0-37.0) Red Cell Distribution Width 15.4% (12.3-15.4) Platelet Count 162bil/L (150-400) Neutrophils (%) (Auto) 60.5% (40-74) Lymphocytes (%) (Auto) 27.2% (14-46) Monocytes (%) (Auto) 8.9% (4-12) Eosinophils (%) (Auto) 2.5% (0-5) Basophils (%) (Auto) 0.4% (0-3) Sodium Level 135mEq/L (134-144) Potassium Level 4.0mEq/L (3.5-5.2) Chloride Level 99mEq/L (97-108) Carbon Dioxide Level 22mmol/L (18-29) Blood Urea Nitrogen 23mg/dL (8-27) Creatinine 1.23mg/dL (0.76-1.27) Estimat Glomerular Filtration Rate 60mL/min (>59) Glucose Level 120mg/dL (60-99) Lactic Acid Level 1.2mmol/L (0.4-2.0) Calcium Level 9.1mg/dL (8.5-10.1) Magnesium Level 1.9mg/dL (1.6-2.6) Total Bilirubin 0.3mg/dL (0.0-1.2) Aspartate Amino Transf (AST/SGOT) 17U/L (0-50) Alanine Aminotransferase (ALT/SGPT) 13U/L (0-44) Alkaline Phosphatase 95U/L (25-160) Total Protein 7.8g/dL (6.4-8.4) Albumin 3.7g/dL (3.4-5.0) Lipase 28U/L (13-60) Hold Perez Top Tube Received (Received) Urine Color Yellow (YELLOW) Urine Appearance Hazy (CLEAR,HAZY) Urine pH 6.0 (5.0-8.0) Urine Specific [place] 1.010 (1.003-1.035) Urine Protein Negativemg/dL (NEG,TRACE) Urine Glucose (UA) Negativemg/dL (NEGATIVE) Urine Ketones Negativemg/dL (NEGATIVE) Urine Occult Blood Trace (NEGATIVE) Urine Nitrite Positive (NEGATIVE) Urine Bilirubin Negative (NEGATIVE) Urine Urobilinogen Normalmg/dL (NORMAL) Urine Leukocyte Esterase Large (NEGATIVE) Urine RBC 0-2/hpf (0-2) Urine WBC >50/hpf (0-5) Urine Epithelial Cells Occasional/hpf (NONE-MOD) Urine Crystals None seen (NONE SEEN) Urine Bacteria Many/hpf (NONE-FEW) Urine Hyaline Casts None/lpf (NONE) Urine Granular Casts None seen (NONE SEEN) Urine Waxy Casts None seen (NONE SEEN) Urine Red Blood Cell Casts None seen (NONE SEEN) Urine White Blood Cell Casts None seen (NONE SEEN) Urine Mucus None seen (None Seen) Urine Trichomonas None seen (NONE SEEN) Urine Yeast None (NONE SEEN) Urinalysis Comment None Urine Culture Reflexed Indicated CT Abd / Pelvis Interpretation IMPRESSION: Ventral hernia sac containing dilated loops of small bowel. Incarceration or strangulation cannot be ruled out by CT. Electronically signed by Clifford Zaidi MD Study type: Abdominal CT IV contrast Interpretation / Wet Read by: Interpret - Radiologist Re-Eval/Medical Decision Med Decision/Clinical Course 80-year-old male with past medical history of colostomy and hernia here stating that his hernia will not go back into place. Differential diagnosis includes but is not limited to strangulated versus incarcerated hernia versus reducible hernia versus obstruction. CT scan does not show any evidence of obstruction. Labs are remarkable for mild leukocytosis, and baseline anemia. His urinalysis resulted after he was discharged, and does show UTI, however, he is afebrile, does not show any tachycardia, and has no complaints of urinary symptoms at this time. His hernia was reduced in the emergency department after icing and placing the patient in reverse Trendelenburg. He was given very strict return precautions and is amenable to discharge at this time with follow-up. Source of Hx: Old records Time of Eval: 01:03 Re-Evaluation/Progress Note: Discussed CT results. After ice and Trendelenburg I was able to successfully reduce the hernia. Counseled Regarding: Diagnosis, Lab results Discharge & Departure Primary Impression: Ventral hernia Disposition: Home Vital Signs - All Vital Signs Date Time Temp Pulse Resp B/P Pulse Ox O2 Delivery O2 Flow Rate FiO2 06/20/16 01:27 76 16 112/63 93 Room Air 06/20/16 00:23 75 18 97/63 95 Room Air 06/19/16 22:33 36.5 86 18 120/81 95 Room Air )( All Prior VS Reviewed: Yes Condition: Stable Patient Instructions: Ventral Hernia (DC) Additional Instructions: We were able to successfully reduce your hernia here in the ER. Follow-up with your primary care physician next week. Return to the ER if your hernia gets stuck out again, or you develop fever, chills, decreased farting, or any other concerning symptoms. Referrals: NOPCP (PCP) [facility] Scribe Attestation Portions of this note were transcribed by Jose Gaines. I, Dr. Espinoza, personally performed the history, physical exam and medical decision-making; I reviewed and confirmed the accuracy of the information in the transcribed note. Signed by: Daphne Hall. 06/20/2016 - 01:08 copies to: [facility] Pam Espinoza MD Jun 19, 2016 23:23 JOSE GAINES Jun 19, 2016 23:39
[2016-06-19 23:39] LABS: Magnesium 1.9 mg/dL (1.6-2.6)
[2016-06-19] MEDS ORDERED: HYDROmorphone 1 mg/mL Inj IVPUSH ONE (23:40)
[2016-06-20 00:23] VITALS: BP 97/63; PULSE 75; RESP 18; O2SAT 95
[2016-06-20 00:31] LABS: APPEARANCE,URINE HAZY (CLEAR,HAZY); COLOR,URINE YELLOW (YELLOW); OCCULT BLOOD,URINE TRACE (NEGATIVE); UROBILINOGEN,URINE NORMAL (NORMAL)
[2016-06-20 01:27] VITALS: BP 112/63; PULSE 76; RESP 16; O2SAT 93
--- NOTE | 2016-06-20 12:43 | DRSVH ---
PROCEDURE: CT ABDOMEN AND PELVIS WITH CONTRAST ([id number]) INDICATIONS: non reducible hearnia TECHNIQUE: After the administration of intravenous contrast, 5 mm thick sections acquired from the diaphragm to the symphysis. 5 mm coronal and sagittal reformats were acquired. For radiation dose reduction, the following was used: automated exposure control, adjustment of mA and/or kV according to patient siz e. COMPARISON: None. FINDINGS: Image quality: Excellent. ABDOMEN: Lung bases: Lung bases are clear of acute disease. Some scarring changes are present at the lung bas es. Heart size is normal. Solid organs: Liver and spleen are normal in size and enhancement. Gallbladder has been removed. B iliary system is non dilated. Pancreas enhances normally. No adrenal nodules. Kidneys demonstrate a somewhat atrophic appearance with thinned cortices bilaterally. Peritoneum and bowel: There is a prominent right parasagittal ventral hernia that includes a portion of transverse colon. The proximal transverse colon that extends into the hernia and then out of the h ernia and then back into the hernia and then out of the hernia and then extends into a smaller hernia into the left parasagittal ventral area and back out. Portions of the colon are compressed causing a mild partial obstruction. Ischemic changes are not appreciated. Nodes and vessels: No retroperitoneal or mesenteric adenopathy by size criteria. Aorta and inferior vena cava are normal in size. PELVIS: Genitourinary: Bladder shows a catheter into the bladder which is not distended. There is some air i n the bladder consistent with catheterization. Miscellaneous: No inguinal hernias or adenopathy. Bones: No suspicious bony lesions. No vertebral body compression fractures. Impression: There is ventral hernia abnormality in 3 locations adjacent to one another. I believe the se involve the transverse colon rather than small bowel. 2 of these are to be right of the midline an d a third to the left of the midline in the region probably just inferior to the umbilicus. Previous cholecystectomy. Lindsey catheter into the bladder. Colonic diverticula without inflammation. Dictated by: Lg Horton M.D. on 06/20/2016 at 12:42 on 06/20/2016 at 12:28 study corresponds to usha LUNA preliminary dictation however I believe transverse colon rather than small bowel is in the her yin sac. Approved by: Lg Horton M.D. on 06/20/2016 at 12:42
[2016-06-22] MEDS ORDERED: AMOX-366 PO (10:23)
== END 2016-06-20 01:27 | disposition home or self-care (01) ==
LOC: SED 22:26
DX: K43.9 Ventral hernia without obstruction or gangrene (principal); I10 Essential (primary) hypertension; I25.10 Atherosclerotic heart disease of native coronary artery without angina pectoris; E78.5 Hyperlipidemia, unspecified; J44.9 Chronic obstructive pulmonary disease, unspecified; I48.91 Unspecified atrial fibrillation; Z95.0 Presence of cardiac pacemaker; Z90.49 Acquired absence of other specified parts of digestive tract; Z93.3 Colostomy status; Z87.891 Personal history of nicotine dependence; Z95.1 Presence of aortocoronary bypass graft; Z95.2 Presence of prosthetic heart valve; Z79.82 Long term (current) use of aspirin; Z79.51 Long term (current) use of inhaled steroids; Z88.5 Allergy status to narcotic agent
CPT/HCPCS: 36415; 74177; 80053; 81000; 83605; 83690; 83735; 85025; 87086; 87088; 87186; 96374; 99285; J1170; Q9967

== ENCOUNTER 2016-06-20 11:52 | Emergency (ER) | payer OTHER ==
[2016-06-20 12:09] VITALS: BP 100/51; PULSE 81; RESP 16; O2SAT 94
--- NOTE | 2016-06-20 12:09 | ED.REPORT ---
HPI-Abd Pain M 40 and Over Date of Service Jun 20, 2016 ED Provider: History of Present Illness: hernia is out again. does not wear a hernia belt. [facility] hoping to have [facility] this August. lives with roommate. pops out every time he gets up. Nursing Notes Stated Complaint: HERNIA Chief Complaint: Male Abdominal Pain Nursing Notes Reviewed: Yes Allergies: Coded Allergies: morphine (Verified Allergy, Intermediate, RASH, 06/19/16) Scheduled Acetaminophen (Acetaminophen) 500 Mg Tablet 1,000 MG PO TID Aspirin (Aspirin) 81 Mg Tablet 81 MG PO DAILY Atorvastatin Calcium (Atorvastatin Calcium) 40 Mg Tablet 40 MG PO HS Budesonide/Formoterol 160-4.5 mcg Inh (Symbicort 160-4.5 mcg Inh) 120 Puff Inhaler 1 PUFF INHALATION BID Cephalexin (Keflex) 500 Mg Capsule 500 MG PO QID Ferrous Sulfate (Feosol) 325 Mg Tablet 325 MG PO DAILYWM Furosemide (Furosemide) 40 Mg Tablet 40 MG PO DAILY Furosemide (Furosemide) 40 Mg Tablet 40 MG PO BID Isosorbide MN ER (Isosorbide MN ER) 60 Mg Tab.er.24h 60 MG PO DAILY Metoprolol Succinate ER (Metoprolol Succinate ER) 25 Mg Tab.er.24h 25 MG PO BID Metoprolol Succinate ER (Metoprolol Succinate ER) 25 Mg Tab.er.24h 25 MG PO BID Omeprazole (Omeprazole) 20 Mg Capsule.dr 20 MG PO DAILY Potassium Chloride (K-Tab ER) 8 Meq Tablet.er 8 MEQ PO DAILY Prazosin (Minipress) 1 Mg Capsule 1 MG PO HS Sertraline HCl (Sertraline) 50 Mg Tablet 50 MG PO HS Simethicone (Gas-X) 80 Mg Tablet 160 MG PO QID Scheduled PRN Albuterol Neb Soln (Albuterol Neb Soln) 2.5 Mg/3 Ml Vial.neb 2.5 MG IH QID PRN PRN For Shortness of Breath Albuterol Sulfate (Ventolin HFA Inhaler) 200 Puff/18 Gm Inhaler 2 PUFF INH QID PRN PRN For Wheezing Docusate Sodium (Docusate Sodium) 250 Mg Capsule 200 MG PO BID PRN PRN For Constipation Nitroglycerin SL (Nitrostat) 0.4 Mg Tab.subl 0.3 MG SL Q5MIN PRN PRN For Chest Pain Oxycodone (Roxicodone) 5 Mg Tablet 2.5 MG PO Q4H PRN PRN For Pain Oxycodone (Roxicodone) 5 Mg Tablet 5 MG PO Q4H PRN PRN For Pain oxyCODONE (oxyCODONE) 5 Mg Tablet 5-10 MG PO Q6H PRN PRN For Pain General Time Seen by MD: 12:09 Chief Complaint Other (hernia is out) Hx Obtained From: Patient Sudden in Onset?: No Symptom Duration: Since onset Past Medical History Past Medical History Notes: PCP: Dr. Viveros at the [facility] Past Medical History PAST MEDICAL HISTORY: 1. HTN 2. murmur 3. He has history of COPD on home oxygen, which was started about three months ago. He was diagnosed to have COPD around 2006. Known FEV1 in 2006 of 0.96. No history of childhood asthma. 4. History of coronary artery disease, with history of coronary bypass grafting around May 2002 with bovine aortic valve replacement for aortic stenosis at the same time. He subsequently had a repeat coronary bypass grafting around 2006 or 2007, but I cannot confirm this. He said he had cardiac catheterization about 2 months ago at the [facility] and was told that one of his bypass grafts was fine, but the other one was probably obstructed, but stents were not placed. The patient had a previous echocardiogram on April 29, 2011, which revealed normal left ventricular systolic function, with ejection fraction of about 55% to 60%. There is moderate tricuspid regurgitation. There is a bioprosthetic aortic valve. The leaflets are not well seen. The peak velocity of 4.1 msec, which is compatible with sisfrvlc-py-znsucl aortic stenosis. Aortic valve area 0.79 cm squared. 5. He has a history of streptococcus viridans endocarditis in 2000, due to IV drug use. 6. 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 7. He has no history of thyroid dysfunction. 8. He has history of hyperlipidemia. 9. He has no history of cancer. 10. He has a diagnosis of posttraumatic stress disorder. 11. He has a history of hepatitis C infection. 12. He has a history of benign prostatic hypertrophy. 13. History of hiatal hernia. 14. History of ventral hernia. Reports: COPD, Congestive heart failure, Coronary artery disease, GERD, Hyperlipidemia, Hypertension Reports: Atrial fibrillation Past Surgical History Includes colon resection with colostomy in 2007 secondary to ischemic colitis. 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 cholecystectomy. aortic valve replacement (bovine) around 2002 for aortic valve stenosis associated with coronary bypass grafting. He again had coronary bypass grafting July 2007 (which was a redo CABG) Bilat achilles tendon repair Reports: Angioplasty Reports: Pacemaker insertion Family History Noncontributory Smoking History Former Smoker Social History Residing at [facility] due to recent injuries (broken back, subdural hemorrhage)- this was a previous reporT, Today he states he lives in a trailer with a roommate in [facility]. Alcohol Use: 1-3 per week Drug Use: In recovery Other Social History: Local resident Ambulatory Status Cane Review of Systems Basic Review of Systems Eyes: Vision NL, No discharge ENT: No nasal congestion, No pharyngeal pain Hematologic: No bruising Endocrine: No weight gain, No weight loss Skin: No bruising, No rash, No itch Neurologic: No weakness, No numbness Psychiatric: Normal thought content Physical Exam Initial Vital Signs Vital Signs (First) Date Time Temp Pulse Resp B/P Pulse Ox O2 Delivery O2 Flow Rate FiO2 06/20/16 12:09 36.7 81 16 100/51 94 Room Air Initial VS: Reviewed, Vital signs normal Head / Eyes: Atraumatic, Normocephalic, PERRL ENT: Mucous membranes moist, Conjunctiva normal, No scleral icterus Neck: Supple, Non-tender, Full range of motion Lymphatic: No lymphadenopathy Extremities: Vascular intact, Neuro intact, No swelling, No tenderness Skin: Warm, Dry, No cyanosis Neurologic: Alert, Oriented, Nonfocal Psychiatric: Mood/affect normal, Behavior normal, Normal thought content General/Constitutional: Awake, Alert, No acute distress, Well appearing, Well developed, Well hydrated Respiratory / Chest: Atraumatic, Breath sounds NL, Breath sounds = bilat, No respiratory distress Cardiovascular: Heart rate NL, Regular rhythm, Heart sounds NL patient points to hernia as site of pain. hernia is able to be reduced but with any movement, it pops out again. No sign of cellulitis. Back: Atraumatic, Inspection NL, Full range of motion ENT: Atraumatic, Airway patent, Mucous membranes moist Interpretation & Diagnostics Lab Results Interpretation Result Diagram: 06/20/16 0000 06/20/16 0000 Test 06/20/16 00:00 06/20/16 16:15 White Blood Count 9.1th/mm3 (3.8-10.1) Red Blood Count 4.04mil/mm3 (4.40-5.80) Hemoglobin 12.0g/dL (13.8-17.2) Hematocrit 37.5% (41.0-50.0) Mean Corpuscular Volume 92.8fL (81-100) Mean Corpuscular Hemoglobin 29.7pg (27.0-35.0) Mean Corpuscular Hemoglobin Concent 32.0% (32.0-37.0) Red Cell Distribution Width 15.2% (12.3-15.4) Platelet Count 140bil/L (150-400) Neutrophils (%) (Auto) 78.9% (40-74) Lymphocytes (%) (Auto) 12.0% (14-46) Monocytes (%) (Auto) 6.9% (4-12) Eosinophils (%) (Auto) 1.9% (0-5) Basophils (%) (Auto) 0.1% (0-3) Sodium Level 136mEq/L (134-144) Potassium Level 4.0mEq/L (3.5-5.2) Chloride Level 97mEq/L (97-108) Carbon Dioxide Level 22mmol/L (18-29) Blood Urea Nitrogen 21mg/dL (8-27) Creatinine 1.16mg/dL (0.76-1.27) Estimat Glomerular Filtration Rate 64mL/min (>59) Glucose Level 131mg/dL (60-99) Lactic Acid Level 1.1mmol/L (0.4-2.0) Calcium Level 9.1mg/dL (8.5-10.1) Total Bilirubin 0.5mg/dL (0.0-1.2) Aspartate Amino Transf (AST/SGOT) 18U/L (0-50) Alanine Aminotransferase (ALT/SGPT) 13U/L (0-44) Alkaline Phosphatase 95U/L (25-160) Total Protein 7.5g/dL (6.4-8.4) Albumin 3.9g/dL (3.4-5.0) Hold Urine Received (Received) Lab Results Interpretation: CT done 06/19/2016 does not show any inceration Re-Eval/Medical Decision Med Decision/Clinical Course 80 year old male returns with hernia pain. Seen yesterday for same. Labs repeated, unremarkable. US completed. No sign of ischemia areas, good blood flow to bowel is noted. Patient with 1 episode of emises in ER. Attempted to transfer to [facility]. Consult with Dr. Massey. No urgent need for admission. Will see patient in office this week. No sign of pancreatitis or torsion. patient fitted with abd binder. Encouraged to hold area of hernia also. Able to get up and walk without difficulty. Discharge & Departure Primary Impression: Ventral hernia Obstruction and gangrene presence: without obstruction or gangrene Qualified Code: K43.9 - Ventral hernia without obstruction or gangrene Disposition: Home Vital Signs - All Vital Signs Date Time Temp Pulse Resp B/P Pulse Ox O2 Delivery O2 Flow Rate FiO2 06/20/16 15:30 73 118/64 95 Room Air 06/20/16 12:09 36.7 81 16 100/51 94 Room Air Patient Instructions: Ventral Hernia (ED) Additional Instructions: You are able to reduce your hernia. Please call Dr. Massey' office on Wednesday for an appointment. You need to wear the hernia belt to reduce your pain. Can use hydrocodone 1 up to 2 times a day as needed for pain. Please work with surgery and the [facility] to schedule the surgery. Referrals: Eugene Massey MD EDSupervising Provider for APC: Jasiel Tristan MD copies to: Eugene Massey MD, Sue ARNP Jun 20, 2016 12:09
[2016-06-20] MEDS ORDERED: oxyCODONE-Acetamin 5-325 mg Tablet PO ONE (12:30)
[2016-06-20 13:18] LABS: BASOPHILS % (AUTO) 0.1 % (0-3); EOSINOPHILS % (AUTO) 1.9 % (0-5); MONOCYTES % (AUTO) 6.9 % (4-12); Mean Corpuscular Hemoglobin 29.7 pg (27.0-35.0); Mean Corpuscular Volume 92.8 fL (81-100); NEUTROPHILS % (AUTO) 78.9 % (40-74); Platelet Count 140 bil/L (150-400)
--- NOTE | 2016-06-20 13:42 | DRSVH ---
PROCEDURE: US HERNIA ABDOMINAL INDICATIONS: rm 17 TECHNIQUE: Real-time focused scanning was performed of the abdomen, with image documentation. COMPARISON: [facility], CT, CT ABD PELVIS W CON, 06/20/2016, 0:09. FINDINGS: Hernias present in the ventral midline infraumbilical both right and left. On ultrasound no findings to indicate abnormally thickened wall or abnormal blood flow seen. This cor responds with the impression given on the CT scan of no ischemic bowel change. IMPRESSION: 1. Hernia with bowel loops. Ischemic changes are not appreciated. Dictated by: Lg Horton M.D. on 06/20/2016 at 13:38 Approved by: Lg Horton M.D. on 06/20/2016 at 13:41
[2016-06-20 15:30] VITALS: BP 118/64; PULSE 73; O2SAT 95
[2016-06-20] MEDS ORDERED: Ondansetron 2 mg/mL 2 mL Inj IVPUSH ONE (15:30)
[2016-06-20] MEDS ORDERED: HYDROmorphone 1 mg/mL Inj IVPUSH ONE ×2 (15:30→18:40)
[2016-06-22] MEDS ORDERED: AMOX-366 PO (10:23)
== END 2016-06-20 18:46 | disposition home or self-care (01) ==
LOC: EDBD 11:52 → SED 11:52
DX: K43.9 Ventral hernia without obstruction or gangrene (principal); I11.9 Hypertensive heart disease without heart failure; I25.10 Atherosclerotic heart disease of native coronary artery without angina pectoris; I48.91 Unspecified atrial fibrillation; K21.9 Gastro-esophageal reflux disease without esophagitis; E78.5 Hyperlipidemia, unspecified; J44.9 Chronic obstructive pulmonary disease, unspecified; Z79.82 Long term (current) use of aspirin; Z87.891 Personal history of nicotine dependence; Z95.0 Presence of cardiac pacemaker; Z88.8 Allergy status to other drugs, medicaments and biological substances
CPT/HCPCS: 76705; 80053; 83605; 85025; 96374; 96375; 99285; J1170; J2405

== ENCOUNTER 2016-09-27 21:03 | Inpatient (IN) | payer OTHER ==
[~2016-09-27] VITALS: Ht 167.6 cm; Wt 79.5 kg
[2016-09-27 21:03] VITALS: BP 102/57; PULSE 140; RESP 22; O2SAT 96
[~2016-09-27 21:03] MED LIST changes: +AMOX-366 PO
[2016-09-27 21:21] LABS: BASOPHILS % (AUTO) 0.4 % (0-3); EOSINOPHILS % (AUTO) 3.2 % (0-5); MONOCYTES % (AUTO) 12.2 % (4-12); Mean Corpuscular Hemoglobin 31.2 pg (27.0-35.0); Mean Corpuscular Volume 94.9 fL (81-100); NEUTROPHILS % (AUTO) 52.5 % (40-74); Platelet Count 148 bil/L (150-400)
--- NOTE | 2016-09-27 21:35 | ED.REPORT ---
HPI-Chest Pain 40 and Over Date of Service Sep 27, 2016 ED Provider: Merlin Sommer MD The pt is a 80 y/o male w/ a hx of CABG, HTN, hyperlipidemia and COPD presenting to the ED complaining of L chest pain onset 1700. The pain radiates to his left arm, has not happened "in a while", and he has taken 3 NTG w/o relief. Nursing Notes Stated Complaint: CHEST PAIN Chief Complaint: Chest Pain Nursing Notes Reviewed: Yes Allergies: Coded Allergies: morphine (Verified Allergy, Intermediate, RASH, 09/27/16) Scheduled Acetaminophen (Acetaminophen) 500 Mg Tablet 1,000 MG PO TID Aspirin (Aspirin) 81 Mg Tablet 81 MG PO DAILY Atorvastatin Calcium (Atorvastatin Calcium) 40 Mg Tablet 40 MG PO HS Budesonide/Formoterol 160-4.5 mcg Inh (Symbicort 160-4.5 mcg Inh) 120 Puff Inhaler 1 PUFF INHALATION BID Cephalexin (Keflex) 500 Mg Capsule 500 MG PO QID Ferrous Sulfate (Feosol) 325 Mg Tablet 325 MG PO DAILYWM Furosemide (Furosemide) 40 Mg Tablet 40 MG PO DAILY Furosemide (Furosemide) 40 Mg Tablet 40 MG PO BID Isosorbide MN ER (Isosorbide MN ER) 60 Mg Tab.er.24h 60 MG PO DAILY Metoprolol Succinate ER (Metoprolol Succinate ER) 25 Mg Tab.er.24h 25 MG PO BID Metoprolol Succinate ER (Metoprolol Succinate ER) 25 Mg Tab.er.24h 25 MG PO BID Omeprazole (Omeprazole) 20 Mg Capsule.dr 20 MG PO DAILY Potassium Chloride (K-Tab ER) 8 Meq Tablet.er 8 MEQ PO DAILY Prazosin (Minipress) 1 Mg Capsule 1 MG PO HS Sertraline HCl (Sertraline) 50 Mg Tablet 50 MG PO HS Simethicone (Gas-X) 80 Mg Tablet 160 MG PO QID Scheduled PRN Albuterol Neb Soln (Albuterol Neb Soln) 2.5 Mg/3 Ml Vial.neb 2.5 MG IH QID PRN PRN For Shortness of Breath Albuterol Sulfate (Ventolin HFA Inhaler) 200 Puff/18 Gm Inhaler 2 PUFF INH QID PRN PRN For Wheezing Amoxicillin/Clav K 875-125 mg (Augmentin 875-125 mg) 1 Each Tablet 1 TABLET PO BID PRN PRN uti Docusate Sodium (Docusate Sodium) 250 Mg Capsule 200 MG PO BID PRN PRN For Constipation Nitroglycerin SL (Nitrostat) 0.4 Mg Tab.subl 0.3 MG SL Q5MIN PRN PRN For Chest Pain Oxycodone (Roxicodone) 5 Mg Tablet 2.5 MG PO Q4H PRN PRN For Pain Oxycodone (Roxicodone) 5 Mg Tablet 5 MG PO Q4H PRN PRN For Pain oxyCODONE (oxyCODONE) 5 Mg Tablet 5-10 MG PO Q6H PRN PRN For Pain General Time Seen by MD: 21:29 Chief Complaint Chest pain Hx Obtained From: Patient Arrived By: Walk-in Sudden in Onset?: Yes Onset Occurred: 1 - 4 hours ago Symptom Duration: Since onset Recent Healthcare: No recent hospitalization, Recent doctor visit Similar Sx Previous: Yes Risk Factors )( CAD Risk Stratification Hyperlipidemia Hypertension Known CAD )( TAD Risk Stratification Hypertension )( PE Risk Stratification Risk factors N/A Past Medical History Past Medical History Notes: PCP: Dr. Viveros at the [facility] Past Medical History PAST MEDICAL HISTORY: 1. HTN 2. murmur 3. He has history of COPD on home oxygen, which was started about three months ago. He was diagnosed to have COPD around 2006. Known FEV1 in 2006 of 0.96. No history of childhood asthma. 4. History of coronary artery disease, with history of coronary bypass grafting around May 2002 with bovine aortic valve replacement for aortic stenosis at the same time. He subsequently had a repeat coronary bypass grafting around 2006 or 2007, but I cannot confirm this. He said he had cardiac catheterization about 2 months ago at the [facility] and was told that one of his bypass grafts was fine, but the other one was probably obstructed, but stents were not placed. The patient had a previous echocardiogram on April 29, 2011, which revealed normal left ventricular systolic function, with ejection fraction of about 55% to 60%. There is moderate tricuspid regurgitation. There is a bioprosthetic aortic valve. The leaflets are not well seen. The peak velocity of 4.1 msec, which is compatible with ydhbyxpv-xp-hlvmos aortic stenosis. Aortic valve area 0.79 cm squared. 5. He has a history of streptococcus viridans endocarditis in 2000, due to IV drug use. 6. 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 7. He has no history of thyroid dysfunction. 8. He has history of hyperlipidemia. 9. He has no history of cancer. 10. He has a diagnosis of posttraumatic stress disorder. 11. He has a history of hepatitis C infection. 12. He has a history of benign prostatic hypertrophy. 13. History of hiatal hernia. 14. History of ventral hernia. Reports: COPD, Congestive heart failure, Coronary artery disease, GERD, Hyperlipidemia, Hypertension Reports: Atrial fibrillation Past Surgical History Includes colon resection with colostomy in 2007 secondary to ischemic colitis. 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 cholecystectomy. aortic valve replacement (bovine) around 2002 for aortic valve stenosis associated with coronary bypass grafting. He again had coronary bypass grafting July 2007 (which was a redo CABG) Bilat achilles tendon repair Reports: Angioplasty Reports: Pacemaker insertion Family History Noncontributory Smoking History Former Smoker Social History Residing at [facility] due to recent injuries (broken back, subdural hemorrhage)- this was a previous reporT, Today he states he lives in a trailer with a roommate in [facility]. Alcohol Use: 1-3 per week Drug Use: In recovery Other Social History: Local resident Ambulatory Status Cane Review of Systems Ventral midline hernia Cardiovascular: Reports: Chest pain Complete sys rev & neg: except as marked. Physical Exam Initial Vital Signs Vital Signs (First) Date Time Temp Pulse Resp B/P Pulse Ox O2 Delivery O2 Flow Rate FiO2 09/27/16 21:03 36.5 140 22 102/57 96 Room Air Initial VS: Reviewed, Vital signs abnormal Head / Eyes: Atraumatic, Normocephalic, PERRL ENT: Mucous membranes moist, Conjunctiva normal, No scleral icterus Extremities: Vascular intact, Neuro intact, No swelling, No tenderness Skin: Warm, Dry, No cyanosis Neurologic: Alert, Oriented, Nonfocal Psychiatric: Mood/affect normal, Behavior normal, Normal thought content General/Constitutional: Awake, Alert Respiratory / Chest: Atraumatic, Breath sounds NL, Breath sounds = bilat, No respiratory distress Heart Rate / Rhythm: Positive: Irregular rhythm, Tachycardia Abdomen: Soft, Non-tender Stoma in place Reducible ventral midline hernia Interpretation & Diagnostics Lab Results Interpretation Result Diagram: 09/27/16211709/27/168 Test 09/27/16 21:18 09/27/16 23:55 White Blood Count 6.8th/mm3 (3.8-10.1) Red Blood Count 4.30mil/mm3 (4.40-5.80) Hemoglobin 13.4g/dL (13.8-17.2) Hematocrit 40.8% (41.0-50.0) Mean Corpuscular Volume 94.9fL (81-100) Mean Corpuscular Hemoglobin 31.2pg (27.0-35.0) Mean Corpuscular Hemoglobin Concent 32.8% (32.0-37.0) Red Cell Distribution Width 14.4% (12.3-15.4) Platelet Count 148bil/L (150-400) Neutrophils (%) (Auto) 52.5% (40-74) Lymphocytes (%) (Auto) 31.4% (14-46) Monocytes (%) (Auto) 12.2% (4-12) Eosinophils (%) (Auto) 3.2% (0-5) Basophils (%) (Auto) 0.4% (0-3) Sodium Level 135mEq/L (134-144) Potassium Level 4.1mEq/L (3.5-5.2) Chloride Level 96mEq/L (97-108) Carbon Dioxide Level 23mmol/L (18-29) Blood Urea Nitrogen 26mg/dL (8-27) Creatinine 0.98mg/dL (0.76-1.27) Estimat Glomerular Filtration Rate 78mL/min (>59) Glucose Level 121mg/dL (60-99) Calcium Level 9.3mg/dL (8.5-10.1) Magnesium Level 2.1mg/dL (1.6-2.6) Total Bilirubin 0.4mg/dL (0.0-1.2) Aspartate Amino Transf (AST/SGOT) 23U/L (0-50) Alanine Aminotransferase (ALT/SGPT) 14U/L (0-44) Alkaline Phosphatase 141U/L (25-160) Total Protein 8.3g/dL (6.4-8.4) Albumin 3.8g/dL (3.4-5.0) Troponin T 0.010ug/L (0.0-0.011) Lab values outside NL range: no clinical significance. Lab Results Interpretation: Troponin negative 2 ECG Interpretation ECG Interpretation: Rate 142 Atrial Fibrillation w/ rapid V-rate Multiple ventricular premature complexes RBBB Time: 21:23 Interpreted by: ED physician ECG Interpretation: Rate 91 Atrial flutter w/ predominant variable AV block Ventricular premature complex RBBB Time: 23:30 Interpreted by: ED physician X-Ray Chest Interpretation Chest Xray Interpretation: IMPRESSION: Right costophrenic angle blunting is consistent with minimal effusion. Dictated by: Yaneth Reaves M.D. on 09/27/2016 at 21:57 Approved by: Yaneth Reaves M.D. on 09/27/2016 at 21:57 View: Portable, 1 view Interpretation / Wet Read by: Interpret - Radiologist Re-Eval/Medical Decision Med Decision/Clinical Course 80-year-old male with atrial fibrillation/flutter with a rapid ventricular response as high as 150. He had some chest pain associated with that. He also had relatively low blood pressure. Cardizem was titrated with good lowering of the rate and preservation of blood pressure. He was placed on a Cardizem drip. Troponin 2 was negative. EKG showed no significant ischemic changes. He had some persistent chest pain. His case was discussed with Dr. Mosquera and he will be admitted to the hospitalist service for admission, continued rate control, and troponin/EKG trending. Time of Eval: 22:33 Re-Evaluation/Progress Note: Pt rechecked. IV in place, tachycardia is present. Medications ordered. Consultation : Referral / Consult Name: Aknit Mosquera MD Consulted With: Hospitalist Call Returned at: 01:15 Library Media Specialist: Will see patient, Agrees with eval, Agrees with plan, Accepts admit Counseled Regarding: Diagnosis, Lab results, Need for admission Discharge & Departure Primary Impression: Atrial fibrillation with rapid ventricular response Additional Impression: Chest pain Chest pain type: unspecified Qualified Code: R07.9 - Chest pain, unspecified Disposition: ADMITTED TO HOSPITAL Discharge Condition All VS Reviewed: Yes Condition: Stable Referrals: [facility] Crit Care Except Billable Proc Time Spent: 30-74 minutes (45) Services Performed: Patient management by me, Time spent at bedside, Reviewing test results, Reviewing imaging, Discussing patient care, Documentation in record Critical Care Notes: Patient with chest pain and rapid rate required titration rate control medication and PCC admission for further rate control and chest pain evaluation. Scribe Attestation Portions of this note were transcribed by Adelso Cadena. I, Dr. Sommer personally performed the history, physical exam and medical decision-making; I reviewed and confirmed the accuracy of the information in the transcribed note. Signed by : Daphne Mondragon, 09/27/16 and 1352. copies to: [facility] Merlin Sommer MD Sep 27, 2016 21:35 Adelso Cadena Sep 27, 2016 21:54
[2016-09-27 21:48] LABS: TROPONIN T 0.01 ug/L (0.0-0.011)
[2016-09-27 21:59] LABS: Magnesium 2.1 mg/dL (1.6-2.6)
--- NOTE | 2016-09-27 21:59 | DRSVH ---
PROCEDURE: X-RAY CHEST ONE VIEW, PORTABLE ([id number]) INDICATIONS: chest pain TECHNIQUE: One view of the chest was acquired. COMPARISON: [facility], CR, XR CHEST 2VW, 06/17/2015, 9:05. FINDINGS: Surgical changes and devices: Pacemaker and sternal wires are present. Lungs and pleura: There is minimal blunting of the right costophrenic angle. Mediastinum: Mediastinal contours appear normal. Heart size is normal. Bones and chest wall: No suspicious bony lesions. Overlying soft tissues appear unremarkable. IMPRESSION: Right costophrenic angle blunting is consistent with minimal effusion. Dictated by: Yaneth Reaves M.D. on 09/27/2016 at 21:57 Approved by: Yaneth Reaves M.D. on 09/27/2016 at 21:57
[2016-09-27 22:35] VITALS: BP 105/69; PULSE 141; RESP 14; O2SAT 97
[2016-09-27] MEDS: Diltiazem 5 mg/mL 5 mL Inj IVPUSH PRN ×3 (22:41→23:57)
[2016-09-27 22:54] VITALS: BP 109/67; PULSE 106; RESP 18; O2SAT 94
[2016-09-27] MEDS ORDERED: HYDROmorphone 0.5 mg/0.5 mL iSecure Syringe IVPUSH ONE (23:15)
[2016-09-27 23:22] VITALS: BP 113/67; PULSE 94; O2SAT 99
[2016-09-27 23:54] VITALS: BP 106/74; PULSE 112; RESP 15; O2SAT 95
[2016-09-28] VITALS (18 sets, daily range): BP systolic 95–144; BP diastolic 54–85; PULSE 56–126; RESP 12–22; O2SAT 95–98
[2016-09-28] MEDS ORDERED: Diltiazem Inj 125 MG in Dextrose 5% 100 ML IV SCH (00:35)
[2016-09-28] MEDS ORDERED: HYDROmorphone 0.5 mg/0.5 mL iSecure Syringe IVPUSH PRN (01:00)
[2016-09-28] MEDS ORDERED: Ondansetron 2 mg/mL 2 mL Inj IVPUSH PRN (02:10)
[2016-09-28] MEDS ORDERED: Polyethylene Glycol (PEG) 17 Gm Powder PO PRN (02:10)
[2016-09-28] MEDS ORDERED: Alum-Mag Hydrox-Simeth 30 mL Suspension PO PRN (02:10)
--- NOTE | 2016-09-28 02:22 | PCM.HPMED ---
Subjective Date of Service Sep 28, 2016 Primary Provider: Admitting Physician: Ankit Mosquera MD Primary Care Physician: [facility] Attending Physician: Ankit Mosquera MD Admit Status: From the Emergency Department, 23-Hour Observation, [facility] Telemetry Chief Complaint: Chest pain and heart racing History of Present Illness: Gerardo Young is an 80-year-old with past medical issues significant for CAD status post CABG 4 in 2011, atrial fibrillation, pacemaker for her cardia, aortic valve replacement, and COPD who presents with sensation of heart racing and chest pain. Pain began this morning and is described as sternal pressure that does not radiate and is not associated with diaphoresis, nausea, vomiting, or shortness of breath. The patient took his blood pressure and pulse when the pain started. Blood pressure at that time was 140s/160s and pulse was 130. Patient took nitroglycerin with no improvement and proceeded to take 2 additional pills again with no improvement. At this point it is decided to present to the emergency department. Patient states he has had similar symptoms in the past and notes that in order to control his rate they tried numerous medications and eventually gave him a dose of Valium which converted into normal sinus rhythm. Patient is not on anticoagulation due to subdural hematoma diagnosed in April 2015 and risk of falls. Patient states he is compliant with his medications and has not increased his caffeine intake. In the ED initial vitals were temperature 36.5, pulse 140, respiratory rate 22 saturating 96% on room air, and blood pressure 102/57. Initial labs were unremarkable including a negative troponin of 0.0102. EKG was obtained and showed atrial fibrillation with rapid ventricular response but no ischemic changes. Chest x-ray was remarkable only for right costophrenic angle blunting consistent with minimal effusion. Patient was started on a diltiazem drip in the ED that has improved his rate but he continues to be in A. fib. He states his chest pain is much improved with the rate control. Patient will be admitted for continued treatment of his atrial fibrillation. Review of Systems: Comprehensive review of systems was conducted with the patient and found to be negative except as noted above in HPI. Allergies Coded Allergies: morphine (Verified Allergy, Intermediate, RASH, 09/27/16) Home Medications Albuterol Aspirin 81 mg daily Atorvastatin 40 mg nightly Symbicort Docusate Furosemide 40 mg twice a day Hydroxyzine Isosorbide 60 mg daily Metoprolol succinate 25 mg by mouth twice a day Omeprazole 20 mg daily Oxybutynin 5 mg 3 times a day Prazosin 1 mg nightly Sertraline 50 mg nightly Simethicone 160 mg 4 times a day PMH Recurrent parastomal hernia Subdural hematoma April. Vertebral fracture L11-12 Atrial fibrillation with RVR. Coronary artery disease s/p bypass grafting in 2011 COPD on 2L home oxygen as needed with activity. Heart failure with preserved ejection fraction Hepatitis C Hyperlipidemia. PTSD Bladder dysfunction requiring chronic indwelling Lindsey catheter Pulmonary hypertension Sick sinus syndrome S/P pacemaker History of deep vein thrombosis History of gastric ulcer Anxiety Insomnia Agitation History of drug abuse Endocarditis 3, strep viridans Ischemic colitis s/p partial colectomy Surgical History Craniotomy for benign brain tumor Bioprosthetic aortic valve replacement in 2009 Cholecystectomy CABG 4 in 2011 Pacemaker placement Sigmoid colon resection with colostomy Parastomal hernia repair 2013 Achilles tendon surgery (bilateral) Family History Father with unknown cancer Mother: Alzheimer disease, Social History Hx Alcohol Use: Yes (3-4 beers once a week) Hx Substance Use: Yes (quit cocaine 10 years ago) Hx Tobacco Use: Yes (quit in 1994) Smoking Status: Former Smoker Years of Smokin Living Arrangement: with Friends/Roommate (with a daily caregiver) Exam Vital Signs Vital Sign - Last Date Time Temp Pulse Resp B/P Pulse Ox O2 Delivery O2 Flow Rate FiO2 09/28/16 00:50 104 12 109/54 95 Room Air 09/27/16 21:03 36.5 Exam General: Elderly man in no acute distress, appropriately interactive HEENT: Normocephalic, atraumatic. External ears without defect. Cataracts present bilaterally. Right pupil slow to react compared to left (patient states this is his baseline). Edentulous with moist mucosa. Neck: Supple with full range of motion. No jugular venous distension. No bruits. No lymphadenopathy or thyromegaly. Chest: Pace maker palpated in the left chest wall with no surrounding erythema. Well-healed sternotomy scar. Cardiovascular: Tachycardic and irregularly irregular. Difficult to characterize murmur due to rate but one is present. Pulmonary: Diffuse wheezes bilaterally and decreased air movement. Normal respiratory effort with no use of accessory muscles. Abdomen: Soft with normoactive bowel sounds. Colostomy present in the right lower quadrant. Hernia presents distal to stoma and is reducible. Extremities: Peripheral IVs in patient's bilateral hands due to poor access. No lower extremity edema. Skin: Normal temperature, turgor, and texture; no rash, ulcers, or subcutaneous nodules appreciated. Neurological: Cranial nerves grossly intact. Normal muscle strength, tone, and bulk. Ambulates with cane. Psychiatric: Normal mood and affect. Alert and oriented to person, place, and time. Lab and Diagnostics Labs Troponin 0.0102 Result Diagram: 09/27/[id number]/[id number] X-Rays, CTs and MRIs X-RAY CHEST ONE VIEW, PORTABLE ([id number]) IMPRESSION: Right costophrenic angle blunting is consistent with minimal effusion. Dictated by: Yaneth Reaves M.D. on 09/27/2016 at 21:57 Approved by: Yaneth Reaves M.D. on 09/27/2016 at 21:57 12-lead ECG Initial EKG at 2122 showed atrial fibrillation with a rate of 142. Repeat EKG at 2330 she will continue atrial fibrillation with improved rate of 91 Assessment & Plan Gerardo Young is an 80-year-old with past medical issues significant for CAD status post CABG 4 in 2011, atrial fibrillation, pacemaker for her cardia, aortic valve replacement, and COPD who presents with sensation of heart racing and chest pain. Admitted for atrial fibrillation with RVR. Atrial fibrillation with RVR, present on admission, active. - Patient's initial EKG revealed A. fib with heart rate of 142. - Patient was started on a diltiazem drip in the ED with significant improvement with rates between 90 and 110. - We will continue diltiazem drip and titrate. - Patient placed on telemetry. - Not on chronic anticoagulation due to recent subdural hematoma and comorbidities. - Electrolytes and TSH within normal limits. - May need to consider the addition of amiodarone if patient does not convert. - Home regimen includes metoprolol succinate 25 mg twice a day. Chest pain, present on admission, improving. Etiology likely secondary to atrial fibrillation with RVR as pain has been improved with rate control. - Troponin's 2 0.010. One more ordered for 0700. - EKG with no ST changes or signs of ischemia. Coronary artery disease status post CABG in 2011, present on admission, chronic. - Continue aspirin 81 mg daily. - Continue atorvastatin 40 mg daily. Depression, present on admission, chronic. - Continue sertraline 50 mg nightly. COPD, present on admission, chronic. - Continue Advair 1 puff twice a day. - Duonebs every 6 hours when necessary. - Supplemental oxygen as needed to maintain O2 sats between 88-92%. Bladder dysfunction requiring chronic indwelling catheter, present on admission , chronic. - Lindsey catheter changed approximately one week ago. - Continue oxybutynin 5 mg 3 times a day. Colostomy, present on admission, chronic. - Orders for colostomy care place. PRN Medications - Acetaminophen as needed for mild pain/fever/headache - Bowel regimen as needed - Antiemetic as needed Patient is admitted under observation status with expected length of stay less than 2 midnights due to severity of presenting symptoms, risk of adverse event, and complexity of treatment plan. Pain Evaluation: Adequate Pain Control GI Prophylaxis: Not indicated VTE Prophylaxis Indicated: Contraindicated (subdural hematoma) VTE Prophylaxis: SCDs Resuscitation Status: CPR: Attempt Resuscitation Attending Statement The patient was seen and examined together with Dr. Ross on 09/28 and I agree with the history, exam and plan as outlined in the note above. BRENDEN ROSS DO Sep 28, 2016 02:22 Ankit Mosquera MD Sep 28, 2016 19:06
[2016-09-28] MEDS ORDERED: OXYB5TAB10 PO (03:38)
[2016-09-28] MEDS ORDERED: MAGN420T PO (03:39)
[2016-09-28] MEDS ORDERED: HYDR-3605 PO (03:41)
--- NOTE | 2016-09-28 03:45 | NUR ---
GTT rate Cardizem drip increased to 10mg. HR is 119. B/P 109/68 currently.
[2016-09-28] MEDS ORDERED: Albuterol-Ipratropium 3 mL Inhalation Solution NEB PRN (04:25)
--- NOTE | 2016-09-28 05:18 | NUR ---
Trigeminy Pt's rhythm has gone from afib in the 80's to trigeminy. Text page just sent to Dr Bridges. B/P stable at 109/74. Will wait to see if there are any interventions needed.
--- NOTE | 2016-09-28 05:22 | NUR ---
Dr Ball NO interventions needed at this time regarding heart rhythm. Will CTM at this time.
--- NOTE | 2016-09-28 06:29 | NUR ---
NOC PT admitted from ED for CP and increased HR at home. PT brought in my medics and was in afib with RVR. PT does have a hx of this. Cardizem gtt infusing at 10ml currently and HR is in the 80's. PT has significant ectopy noted with bigeminy, trigeminy and large amounts of PVC's. Dr Bridges aware of this. PT rated pain at a 5 when he came to the floor and was in NAD. PT has colostomy present and chronic avila. PT also has large abdominal hernia noted. PT independent with colostomy care. Ostomy cart outside of room. Pt is currently on RA. Skin is grossly intact aside from some bruising on his BUE. PT does have chronic pain, but states he only takes tylenol for this pain at home. PT states that he feels "so so" this am. No SOB noted. WIll CTM at this time. Trop's negative so far.
[2016-09-28] MEDS ORDERED: MeTOProlol XL 50 mg ER24 Tablet PO ONE (07:35)
[2016-09-28 07:47] LABS: Mean Corpuscular Hemoglobin 30.6 pg (27.0-35.0); Mean Corpuscular Volume 94.9 fL (81-100)
[2016-09-28 08:00] LABS: TROPONIN T 0.01 ug/L (0.0-0.011)
[2016-09-28] MEDS: Pantoprazole 20 mg ER24 Tablet PO SCH (08:28)
[2016-09-28] MEDS: Isosorbide Mononitrate 60 mg ER24 Tablet PO SCH (08:28)
[2016-09-28] MEDS: Fluticasone-Salmererol 250-50 Inhaler INHALATION SCH ×2 (08:29→22:01)
[2016-09-28 09:03] LABS: APPEARANCE,URINE CLOUDY (CLEAR,HAZY); COLOR,URINE STRAW (YELLOW); OCCULT BLOOD,URINE MODERATE (NEGATIVE); PH,URINE 5.5 (5.0-8.0); UROBILINOGEN,URINE NORMAL (NORMAL)
[2016-09-28] MEDS ORDERED: MeTOProlol XL 25 mg ER24 Tablet PO ONE (09:35)
--- NOTE | 2016-09-28 11:53 | NUR ---
Spoke with Joyce in patient access at [facility] and this patient is 70% service connected and holds MCR A. Spoke with UR RN and asked her to speak with patient regarding which insurance he would like to use. Updated [employer]
--- NOTE | 2016-09-28 13:23 | NUR ---
Case Managment: Clarification of patient status: inpatient per MD order on 09/28. Will check to see how patient desires billing to be addressed - Medicare A vs [facility]. Nikia Hensley RN
--- NOTE | 2016-09-28 14:09 | NUR ---
Case Management: FANNY presented with explanation - signed original (1:42pm) to chart, copy to patient. Patient desires [facility] insurance billed first for this hospitalization. Patient access and SS notified. Niika Hensley RN
--- NOTE | 2016-09-28 17:21 | NUR ---
TELE The pt continues to be in Afib, with the dilt gtt DC'ed. PO metop was given this AM after the gtt was DC'ed, and the pt's HR ranged from the 50's-120's. aware and following. The pt was able to independently sit at the bedside and stand, and reports that he is "feeling better".
[2016-09-29 03:32] VITALS: BP 108/63; PULSE 84; RESP 20; O2SAT 96
--- NOTE | 2016-09-29 06:41 | NUR ---
Telemetry Pt transitioned from MP30 to portable telemetry box this shift; tele stable with afib in 80s and PVCs. Pt up and ambulating with cane to bathroom, tolerates fair, though significantly weak and dyspneic on exertion, and pt reports exertional angina after extensive movement. Reports getting no sleep throughout night due to bed movement. VSS.
[2016-09-29] MEDS ORDERED: METO-272 PO (08:02)
[2016-09-29] MEDS ORDERED: MeTOProlol XL 50 mg ER24 Tablet PO SCH (08:30)
[2016-09-29] MEDS ORDERED: MeTOProlol XL 25 mg ER24 Tablet PO SCH (08:30)
[2016-09-29 10:05] VITALS: PULSE 87; RESP 18; O2SAT 95
[2016-09-29] MEDS ORDERED: Furosemide 10 mg/mL 2 mL Inj IVPUSH ONE (10:15)
[2016-09-29] MEDS ORDERED: Albuterol 2.5 mg/3 mL Inhalation Solution NEB ONE (10:15)
[2016-09-29 10:26] VITALS: BP 122/76; PULSE 150; RESP 24; O2SAT 94
[2016-09-29] MEDS: Pantoprazole 20 mg ER24 Tablet PO SCH (10:32)
[2016-09-29] MEDS: Isosorbide Mononitrate 60 mg ER24 Tablet PO SCH (10:32)
[2016-09-29] MEDS: Fluticasone-Salmererol 250-50 Inhaler INHALATION SCH (10:32)
[2016-09-29 11:12] VITALS: PULSE 98
[2016-09-29] MEDS ORDERED: oxyCODONE-Acetamin 5-325 mg Tablet PO PRN (11:55)
--- NOTE | 2016-09-29 12:24 | DRSVH ---
[facility] [address] [place] [address] Echocardiogram Report Name: FABIÁN AVALOS LStudy Date: 09/29/2016 Height: 66 in Hospital Exam Location: [facility] Weight: 176 lb Gender: Male BSA: 1.9 m2 : 1935 Age: 81 yrs BP: 108/63 mmHg Reason For Study: Atrial fibrillation Ordering Physician: Performed By: Misha Meza Referring Physician: VERONICA POWERS Interpretation Summary The study quality was technically difficult. The ejection fraction is estimated to be 40-45%. Septal motion is consistent with conduction abnormality. There is mild global hypokinesis of the left ventricle. There is posterolateral wall mild hypokinesis. Compared to the prior exam, left ventricular function is moderately decreased. There is severe biatrial enlargement. There is mild to moderate mitral regurgitation. There is a bioprosthetic aortic valve. The gradients through the prosthetic aortic valve are within the normal range for this type of valve. There is mild tricuspid regurgitation. The right ventricular systolic pressure is estimated at 25 mmHg assuming a right atrial pressure of 3 mm Hg. Procedure: A two-dimensional transthoracic echocardiogram with color flow and Doppler was performed. The study quality was technically difficult. Comparison is made with the echocardiogram of 06/16/15. Left Ventricle: The left ventricle is grossly normal size. Left ventricular wall thickness is borderline increased. The ejection fraction is estimated to be 40-45%. Compared to the prior exam, left ventricular function is moderately decreased. Septal motion is consistent with conduction abnormality. There is mild global hypokinesis of the left ventricle. There is posterolateral wall mild hypokinesis. Assessment of diastolic parameters indicates a restrictive filling pattern of the left ventricle consistent with significantly elevated filling pressures. Right Ventricle: The right ventricle is mildly dilated. There is a pacemaker lead in the right ventricle. Right ventricular systolic function is moderately reduced. Atria: There is severe biatrial enlargement. There is a catheter/pacemaker lead seen in the right atrium. The interatrial septum is intact with no evidence for an atrial septal defect. Mitral Valve: The mitral valve leaflets are mildly calcified. The mitral valve chordae are thickened and/or calcified. There is moderate mitral annular calcification. There is mild to moderate mitral regurgitation. Aortic Valve: There is a bioprosthetic aortic valve. The gradients through the prosthetic aortic valve are within the normal range for this type of valve. There is trace aortic regurgitation. Tricuspid Valve: The tricuspid valve is not well visualized. There is mild tricuspid regurgitation. The right ventricular systolic pressure is estimated at 25 mmHg assuming a right atrial pressure of 3 mm Hg. Great Vessels: The aortic root is normal size. The dimensions of the ascending aorta are normal. The pulmonary artery is not well visualized, but is probably normal size. The IVC is of normal diameter and collapses greater than 50% with a sniff. This suggests a low right atrial pressure of 3 mm Hg. MMode/2D Measurements & Calculations RA long axis asc Aorta Diam EDV(MOD-sp2) LA A2 area: 29.4 cm LA A4 area: 26.5 cm ESV(MOD-sp2) LA length (vol) RA area: 25.7 cm RA vol: 96.9 ml EF(MOD-sp2) LA vol: 95.8 ml RA : 51.1 ml/m2 : 43.6 % LA vol index : 50.6 ml/m2 RVD1 (basal): 4.5 cm TAPSE: 0.62 cm Doppler Measurements & Calculations Ao V2 max MV E max doe MV E/A: 2.4 TR max doe : 244.1 cm/sec : 144.9 cm/sec Med Peak E' Doe : 234.8 cm/sec Ao max PG MV A max doe TR max PG : 24.8 mmHg : 61.2 cm/sec E/E' med: 33.6 : 22.2 mmHg Ao mean PG Lat Peak E' Doe PA V2 max : 14.1 mmHg : 83.4 cm/sec LVOT Max Doe E/E' lat: 21.3 PA mean PG : 88.8 cm/sec E/e' average: 27.4 : 1.4 mmHg sev ratio: 0.32 MV V2 mean Ao V2 mean LV V1 max PG PA V2 mean : 69.0 cm/sec : 176.7 cm/sec : 55.2 cm/sec MV mean PG Ao V2 VTI: 41.7 cm LV V1 VTI: 13.5 cm PA pr(Accel) : 44.1 mmHg MV V2 VTI: 27.4 cm MV dec time : 0.18 sec Electronically signed by: Zelalem Bird on Reading Physician:09/29/2016 12:24 PM
[2016-09-29 12:28] VITALS: BP 94/53; PULSE 100; RESP 22; O2SAT 95
--- NOTE | 2016-09-29 15:11 | PCM.DIMED ---
Discharge Instructions Date of Service Sep 29, 2016 Dates of Hospitalization Sep 28, 2016 at 01:53 Discharge Diagnosis Discharge Diagnosis Afib with rapid ventricular rate intermittent anginal chest pain Medication Instructions Additional med instructions Please note that metoprolol succinate increased from 25mg to 50mg daily Please take nitroglycerin under your tongue every 5minute as needed for three times if you are in chest pain Diet Discharge Diet: Low fat, Low Sodium, Heart Healthy Activity Discharge Activity: No restrictions Call your provider Call your provider for: Shortness of breath, Chest pain Patient Instructions Patient Instructions You were hospitalized with rapid irregular heart rate, which required iv medicine to control the rate. Your medicine was increased to control heart rate. You had intermittent chest pain, which resolved with nitroglycerin pill. Please followed medicine instruction as above Follow-up Provider: [facility] Follow-up with PCP in: 1 week Magy aBrbosa MD Sep 29, 2016 15:11
--- NOTE | 2016-09-29 16:02 | NUR ---
Social Work Note: Initial Assessment/Multidisciplinary Rounds/Discharge Data& Assessment: Pt was discussed in AM rounds, per MD pt is medically ready to discharge home via POV. Gerardo Young is a 81 year old male admitted on 09/28/2016 for AFIB with RVR. Pt lives in [place] with his roommate and is independent with most ADL's, but has a [facility] caregiver 5 days a week that helps with medication management, transportation and other needs. Pt does not drive and uses a quad cane for ambulation. Pt occasionally uses 2L of oxygen when needed through [place]. Pt is [facility] with [facility]. Pt does not have LTC insurance. Pt has DPOA/AD completed, SW requested a copy when possible. Pt friend transporting pt home. Pt denies any other needs. Pt has been independent with his cane in his room and independent with self care. MD does not identify any concerns with pt capacity for self care. Pt provided with discharge planning checklist booklet. Pt denies any other needs. No other discharge needs or MD orders identified. Plan: Per MD pt is medically improved and ready to discharge home via POV. Pt denies any other needs. No other discharge needs or MD orders identified. ERVIN Zaman Addendum: 09/29/16 at 1606 by SHAMEKA PERDOMO Amended: Links added.
[2016-09-29] MEDS ORDERED: AGM875T PO (16:17)
[2016-09-29] MEDS ORDERED: Lidocaine 2% 6mL Topical Jelly TOPICAL ONE (16:20)
--- NOTE | 2016-09-29 16:48 | PCM.DC.MED ---
Discharge Summary Date of Service Sep 29, 2016 Dates of Hospitalization Date of Hospital Admission Sep 28, 2016 at 01:53 Date of Discharge: Sep 29, 2016 Providers: Admitting Physician: Ankit Mosquera MD [facility] Attending Physician: Magy Powers MD Diagnosis at Time of Discharge Diagnosis at Time of Discharge acute dx Afib with rapid ventricular rate intermittent anginal chest pain chronic dx Coronary artery disease status post CABG in 2011 Depression COPD Bladder dysfunction requiring chronic indwelling catheter, present on admission , chronic. Colostomy Procedures XRay, CTs & MRIs PROCEDURE: X-RAY CHEST ONE VIEW, PORTABLE ([id number]) INDICATIONS: chest pain TECHNIQUE: One view of the chest was acquired. COMPARISON: [facility], CR, XR CHEST 2VW, 06/17/2015, 9:05. FINDINGS: Surgical changes and devices: Pacemaker and sternal wires are present. Lungs and pleura: There is minimal blunting of the right costophrenic angle. Mediastinum: Mediastinal contours appear normal. Heart size is normal. Bones and chest wall: No suspicious bony lesions. Overlying soft tissues appear unremarkable. IMPRESSION: Right costophrenic angle blunting is consistent with minimal effusion. Dictated by: Yaneth Reaves M.D. on 09/27/2016 at 21:57 Approved by: Yaneth Reaves M.D. on 09/27/2016 at 21:57 ECG 12 Lead Initial EKG at 2123 showed atrial fibrillation with a rate of 142. Repeat EKG at 2330 she will continue atrial fibrillation with improved rate of 91 Brief History HPI obtained by on 09/28 Gerardo Young is an 80-year-old with past medical issues significant for CAD status post CABG 4 in 2011, atrial fibrillation, pacemaker for her cardia, aortic valve replacement, and COPD who presents with sensation of heart racing and chest pain. Pain began this morning and is described as sternal pressure that does not radiate and is not associated with diaphoresis, nausea, vomiting, or shortness of breath. The patient took his blood pressure and pulse when the pain started. Blood pressure at that time was 140s/160s and pulse was 130. Patient took nitroglycerin with no improvement and proceeded to take 2 additional pills again with no improvement. At this point it is decided to present to the emergency department. Patient states he has had similar symptoms in the past and notes that in order to control his rate they tried numerous medications and eventually gave him a dose of Valium which converted into normal sinus rhythm. Patient is not on anticoagulation due to subdural hematoma diagnosed in April 2015 and risk of falls. Patient states he is compliant with his medications and has not increased his caffeine intake. In the ED initial vitals were temperature 36.5, pulse 140, respiratory rate 22 saturating 96% on room air, and blood pressure 102/57. Initial labs were unremarkable including a negative troponin of 0.0102. EKG was obtained and showed atrial fibrillation with rapid ventricular response but no ischemic changes. Chest x-ray was remarkable only for right costophrenic angle blunting consistent with minimal effusion. Patient was started on a diltiazem drip in the ED that has improved his rate but he continues to be in A. fib. He states his chest pain is much improved with the rate control. Patient will be admitted for continued treatment of his atrial fibrillation. Hospital Course Gerardo Young is an 80-year-old with past medical issues significant for CAD status post CABG 4 in 2011, atrial fibrillation, pacemaker for her cardia, aortic valve replacement, and COPD who presents with sensation of heart racing and chest pain. Admitted for atrial fibrillation with RVR. Patient was admitted to hospital with chronic afib with RVR, initially started on diltiazem gtt, but rate controlled with increased dose of metoprolol XL 50mg from 25mg, HD stable, respiratory status remained at baseline with chronic COPD. pt didn't require advanced airway management. Sputum seemed purulent, sputum culture showed H.influenza, however, given patient's COPD, stable respiratory status, this likely represents colonization, decided not to treat. Patient also showed intermittent anginal chest pain, received nitro SL and one dose of lasix, pain subsequently subsided, given negative troponinx2, no ischemic chg on EKG, no further ischemic w/u was pursued. Patient deemed safe for d/c to home. Exam Vital Signs (Last) Date Time Temp Pulse Resp B/P Pulse Ox O2 Delivery O2 Flow Rate FiO2 09/29/16 12:28 36.4 100 22 94/53 95 Nasal Cannula 3.50 Exam pt was examined on the day of d/c Test 09/27/16 21:18 09/28/16 02:45 09/28/16 06:53 09/28/16 07:15 Neutrophils (%) (Auto) 52.5% (40-74) Lymphocytes (%) (Auto) 31.4% (14-46) Monocytes (%) (Auto) 12.2% (4-12) Eosinophils (%) (Auto) 3.2% (0-5) Basophils (%) (Auto) 0.4% (0-3) Total Bilirubin 0.4mg/dL (0.0-1.2) Aspartate Amino Transf (AST/SGOT) 23U/L (0-50) Alanine Aminotransferase (ALT/SGPT) 14U/L (0-44) Alkaline Phosphatase 141U/L (25-160) Total Protein 8.3g/dL (6.4-8.4) Albumin 3.8g/dL (3.4-5.0) Phosphorus Level 4.1mg/dL (2.5-4.9) Magnesium Level 2.0mg/dL (1.6-2.6) Thyroid Stimulating Hormone (TSH) 2.510uIU/mL (0.450-4.500) Urine Color Straw (YELLOW) Urine Appearance Cloudy (CLEAR,HAZY) Urine pH 5.5 (5.0-8.0) Urine Specific [place] 1.015 (1.003-1.035) Urine Protein Negativemg/dL (NEG,TRACE) Urine Glucose (UA) Negativemg/dL (NEGATIVE) Urine Ketones Negativemg/dL (NEGATIVE) Urine Occult Blood Moderate (NEGATIVE) Urine Nitrite Positive (NEGATIVE) Urine Bilirubin Negative (NEGATIVE) Urine Urobilinogen Normalmg/dL (NORMAL) Urine Leukocyte Esterase Large (NEGATIVE) Urine RBC 3-10/hpf (0-2) Urine WBC 11-50/hpf (0-5) Urine Epithelial Cells Occasional/hpf (NONE-MOD) Urine Crystals None seen (NONE SEEN) Urine Bacteria Moderate/hpf (NONE-FEW) Urine Hyaline Casts None/lpf (NONE) Urine Granular Casts None seen (NONE SEEN) Urine Waxy Casts None seen (NONE SEEN) Urine Red Blood Cell Casts None seen (NONE SEEN) Urine White Blood Cell Casts None seen (NONE SEEN) Urine Mucus None seen (None Seen) Urine Trichomonas None seen (NONE SEEN) Urine Yeast None (NONE SEEN) Urinalysis Comment None Urine Culture Reflexed Indicated White Blood Count 6.7th/mm3 (3.8-10.1) Red Blood Count 3.92mil/mm3 (4.40-5.80) Hemoglobin 12.0g/dL (13.8-17.2) Hematocrit 37.2% (41.0-50.0) Mean Corpuscular Volume 94.9fL (81-100) Mean Corpuscular Hemoglobin 30.6pg (27.0-35.0) Mean Corpuscular Hemoglobin Concent 32.3% (32.0-37.0) Red Cell Distribution Width 14.3% (12.3-15.4) Platelet Count 139bil/L (150-400) Sodium Level 138mEq/L (134-144) Potassium Level 3.4mEq/L (3.5-5.2) Chloride Level 99mEq/L (97-108) Carbon Dioxide Level 23mmol/L (18-29) Blood Urea Nitrogen 22mg/dL (8-27) Creatinine 0.93mg/dL (0.76-1.27) Estimat Glomerular Filtration Rate 83mL/min (>59) Glucose Level 134mg/dL (60-99) Calcium Level 9.0mg/dL (8.5-10.1) Troponin T 0.010ug/L (0.0-0.011) Discharge Medications Discharge Medications Aspirin (Aspirin) 81 Mg Tablet 81 MG PO DAILY (Reported) Atorvastatin Calcium (Atorvastatin Calcium) 40 Mg Tablet 40 MG PO HS Prescribed by: ANDRIY DICKERSON MD Budesonide/Formoterol 160-4.5 mcg Inh (Symbicort 160-4.5 mcg Inh) 120 Puff Inhaler 1 PUFF INHALATION BID Prescribed by: ANDRIY DICKERSON MD Furosemide (Furosemide) 40 Mg Tablet 40 MG PO BID Prescribed by: ANDRIY DICKERSON MD Isosorbide MN ER (Isosorbide MN ER) 60 Mg Tab.er.24h 60 MG PO DAILY Prescribed by: ANDRIY DICKERSON MD Magnesium Oxide (Magnesium Oxide) 420 Mg Tablet 420 MG PO DAILY (Reported) Metoprolol Succinate ER (Metoprolol Succinate ER) 50 Mg Tab.er.24h 50 MG PO DAILY Prescribed by: MAGY POWERS MD Omeprazole (Omeprazole) 20 Mg Capsule.dr 20 MG PO DAILY (Reported) Oxybutynin Chloride (Oxybutynin Chloride) 5 Mg Tablet 5 MG PO TID (Reported) Prazosin (Minipress) 1 Mg Capsule 1 MG PO HS Prescribed by: ANDRIY DICKERSON MD Sertraline HCl (Sertraline) 50 Mg Tablet 50 MG PO HS (Reported) Simethicone (Gas-X) 80 Mg Tablet 160 MG PO QID (Reported) As needed Albuterol Sulfate (Ventolin HFA Inhaler) 200 Puff/18 Gm Inhaler 2 PUFF INH QID PRN PRN For Wheezing (Reported) Docusate Sodium (Docusate Sodium) 250 Mg Capsule 200 MG PO BID PRN PRN For Constipation (Reported) HydrOXYzine HCl (HydrOXYzine HCl) 10 Mg Tablet 10 MG PO TID PRN PRN For Itching (Reported) Nitroglycerin SL (Nitrostat) 0.4 Mg Tab.subl 0.3 MG SL Q5MIN PRN PRN For Chest Pain (Reported) Additional med instructions Please note that metoprolol succinate increased from 25mg to 50mg daily Please take nitroglycerin under your tongue every 5minute as needed for three times if you are in chest pain Followup Plan Disposition: home Discharge Diet: Low fat, Low Sodium, Heart Healthy Discharge Activity: No restrictions Patient Instructions You were hospitalized with rapid irregular heart rate, which required iv medicine to control the rate. Your medicine was increased to control heart rate. You had intermittent chest pain, which resolved with nitroglycerin pill. Please followed medicine instruction as above Follow-up Provider: [place] Follow-up with PCP in: 1 week Time spent 65min aMgy Powers MD Sep 29, 2016 15:58
--- NOTE | 2016-09-29 18:12 | NUR ---
dISCHARGE The pt left the unit at 1800 via wheelchair and BIT GATH[employer]ER to a private vehicle. The pt left with all his belongings, and his packet of discharge info. the pt verbalized understanding of all discharge teaching presented; including all info on new scripts and follow up appointments. The pt left the unit A&Ox3 with VSS.
== END 2016-09-29 18:00 | disposition home or self-care (01) | DRG 310 ==
LOC: SED 21:03 → PCC 09-28 01:53 → INTOOBSV 09-28 01:53 → OBSVTOIN 09-28 01:53
PROVIDERS: ADMIT Hospitalist; ATTEND Hospitalist
DX: I48.2 Chronic atrial fibrillation (principal); I10 Essential (primary) hypertension; E78.5 Hyperlipidemia, unspecified; J44.9 Chronic obstructive pulmonary disease, unspecified; Z95.1 Presence of aortocoronary bypass graft; Z95.0 Presence of cardiac pacemaker; Z87.891 Personal history of nicotine dependence; Z79.82 Long term (current) use of aspirin; F32.9 Major depressive disorder, single episode, unspecified; Z93.3 Colostomy status; I25.119 Atherosclerotic heart disease of native coronary artery with unspecified angina pectoris

== ENCOUNTER 2016-10-01 00:26 | Observation (INO) | payer OTHER ==
[~2016-10-01] VITALS: Ht 167.6 cm; Wt 80.6 kg
[2016-10-01] VITALS (12 sets, daily range): BP systolic 89–112; BP diastolic 56–79; PULSE 58–125; RESP 14–22; O2SAT 95–99
[~2016-10-01 00:26] MED LIST changes: -ACET-171 PO; -ALBU2.5V4 IH; -AMOX-366 PO; -CEPH-512 PO; -FERR-74 PO; +HYDR-3605 PO; +MAGN420T PO; +METO-272 PO; -METO25TA99 PO; +OXYB5TAB10 PO; -OXYC-474 PO; -OXYC5TAB72 PO; -POTA8TAB PO
[2016-10-01] MEDS ORDERED: Diltiazem HCl 125 MG in 0.9% Sodium Chloride 100 ML, Pharmacy To Mix 1 EA IV SCH (00:35)
[2016-10-01 00:41] LABS: BASOPHILS % (AUTO) 0.3 % (0-3); EOSINOPHILS % (AUTO) 2.5 % (0-5); MONOCYTES % (AUTO) 10.5 % (4-12); Mean Corpuscular Hemoglobin 30.7 pg (27.0-35.0); Mean Corpuscular Volume 94.7 fL (81-100); NEUTROPHILS % (AUTO) 62.8 % (40-74); Platelet Count 143 bil/L (150-400)
--- NOTE | 2016-10-01 00:50 | ED.REPORT ---
HPI-Back Pain 40 and Over Date of Service Oct 01, 2016 ED Provider: Daniel Starr DO 81-year-old male with complicated past medical history including heart valve replacement (10 years), double bypass surgery (5 years), pacemaker placement (3 years), hypertension, A. fib with RVR, presents today with chest pain. EMS was called and he was found to have chest pain with supraventricular tachycardia, he was given adenosine twice for rate control. After adenosine was given rhythm was analyzed by 12-lead in the ambulance and evidence of atrial flutter was seen at that time. Upon arrival to emergency department today EKG showed A. fib with RVR. Rate was between 120-130 and patient is still complaining of 7 /10 chest pain. He was given 10 mg of IV and his rate slowed to 80-90, at this point he was still experiencing 5/10 chest pain. Patient was admitted to the hospital within the last week for workup was done for his chest pain and discharged yesterday. Nursing Notes Stated Complaint: CHEST PAIN Chief Complaint: Dysrhythmia/Cardiac Nursing Notes Reviewed: Yes Allergies: Coded Allergies: morphine (Verified Allergy, Intermediate, RASH, 09/27/16) Scheduled Aspirin (Aspirin) 81 Mg Tablet 81 MG PO DAILY Atorvastatin Calcium (Atorvastatin Calcium) 40 Mg Tablet 40 MG PO HS Budesonide/Formoterol 160-4.5 mcg Inh (Symbicort 160-4.5 mcg Inh) 120 Puff Inhaler 1 PUFF INHALATION BID Furosemide (Furosemide) 40 Mg Tablet 40 MG PO BID Isosorbide MN ER (Isosorbide MN ER) 60 Mg Tab.er.24h 60 MG PO DAILY Magnesium Oxide (Magnesium Oxide) 420 Mg Tablet 420 MG PO DAILY Metoprolol Tartrate (Metoprolol Tartrate) 50 Mg Tablet 50 MG PO BID Omeprazole (Omeprazole) 20 Mg Capsule.dr 20 MG PO DAILY Oxybutynin Chloride (Oxybutynin Chloride) 5 Mg Tablet 5 MG PO TID Prazosin (Minipress) 1 Mg Capsule 1 MG PO HS Sertraline HCl (Sertraline) 50 Mg Tablet 50 MG PO HS Simethicone (Gas-X) 80 Mg Tablet 160 MG PO QID Scheduled PRN Albuterol Sulfate (Ventolin HFA Inhaler) 200 Puff/18 Gm Inhaler 2 PUFF INH QID PRN PRN For Wheezing Docusate Sodium (Docusate Sodium) 250 Mg Capsule 200 MG PO BID PRN PRN For Constipation HydrOXYzine HCl (HydrOXYzine HCl) 10 Mg Tablet 10 MG PO TID PRN PRN For Itching Nitroglycerin SL (Nitrostat) 0.4 Mg Tab.subl 0.3 MG SL Q5MIN PRN PRN For Chest Pain General Time Seen by MD: 00:29 Chief Complaint Other (chest pain) Hx Obtained From: Patient Arrived By: Ambulance Sudden in Onset?: Yes Onset Occurred: Just prior to arrival Symptom Duration: Since onset Quality: Heaviness Radiation: : Does not radiate Severity: Current: Pain level 5 out of 10 Severity: Maximum: Pain level 8 out of 10 Recent Healthcare: Recent hospitalization Risk Factors )( AAA Risk Stratification Risk factors reviewed )( TAD Risk Stratification Risk factors reviewed Epidural Hematoma Risk Stratif Risk factors reviewed Epidural Abscess Risk Stratifi Risk factors reviewed Past Medical History Past Medical History Notes: PCP: Dr. Viveros [facility] Past Medical History PAST MEDICAL HISTORY: 1. HTN 2. murmur 3. He has history of COPD on home oxygen, which was started about three months ago. He was diagnosed to have COPD around 2006. Known FEV1 in 2006 of 0.96. No history of childhood asthma. 4. History of coronary artery disease, with history of coronary bypass grafting around May 2002 with bovine aortic valve replacement for aortic stenosis at the same time. He subsequently had a repeat coronary bypass grafting around 2006 or 2007, but I cannot confirm this. He said he had cardiac catheterization about 2 months ago at the [facility] and was told that one of his bypass grafts was fine, but the other one was probably obstructed, but stents were not placed. The patient had a previous echocardiogram on April 29, 2011, which revealed normal left ventricular systolic function, with ejection fraction of about 55% to 60%. There is moderate tricuspid regurgitation. There is a bioprosthetic aortic valve. The leaflets are not well seen. The peak velocity of 4.1 msec, which is compatible with [id number] aortic stenosis. Aortic valve area 0.79 cm squared. 5. He has a history of streptococcus viridans endocarditis in 2000, due to IV drug use. 6. 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 7. He has no history of thyroid dysfunction. 8. He has history of hyperlipidemia. 9. He has no history of cancer. 10. He has a diagnosis of posttraumatic stress disorder. 11. He has a history of hepatitis C infection. 12. He has a history of benign prostatic hypertrophy. 13. History of hiatal hernia. 14. History of ventral hernia. Reports: COPD, Congestive heart failure, Coronary artery disease, GERD, Hyperlipidemia, Hypertension Reports: Atrial fibrillation Past Surgical History Includes colon resection with colostomy in 2007 secondary to ischemic colitis. 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 cholecystectomy. aortic valve replacement (bovine) around 2002 for aortic valve stenosis associated with coronary bypass grafting. He again had coronary bypass grafting July 2007 (which was a redo CABG) Bilat achilles tendon repair Reports: Angioplasty Reports: Pacemaker insertion Family History Noncontributory Smoking History Former Smoker Social History Residing at [facility] due to recent injuries (broken back, subdural hemorrhage)- this was a previous reporT, Today he states he lives in a trailer with a roommate in [facility]. Alcohol Use: 1-3 per week Drug Use: In recovery Other Social History: Local resident Ambulatory Status Cane Review of Systems Constitutional: Denies: Chills, Fever Respiratory: Denies: Non-productive cough, Pleuritic pain, Shortness of breath , Wheezing Cardiovascular: Reports: Chest pain, Denies: Syncope GI: Denies: Abdominal pain Neurologic: Denies: Confusion, Headache Complete sys rev & neg: except as marked. Physical Exam Physical Exam Notes: Ostomy bag Large umbilical hernia 8-10 cm Initial Vital Signs Vital Signs (First) Date Time Temp Pulse Resp B/P Pulse Ox O2 Delivery O2 Flow Rate FiO2 10/01/16 00:38 36.9 125 16 94/79 96 Nasal Cannula 2 Initial VS: Reviewed, Vital signs abnormal Head / Eyes: Atraumatic, Normocephalic, PERRL ENT: Mucous membranes moist, Conjunctiva normal, No scleral icterus Neck: Supple, Non-tender, Full range of motion Lymphatic: No lymphadenopathy Extremities: Vascular intact, Neuro intact, No swelling, No tenderness Skin: Warm, Dry, No cyanosis Psychiatric: Mood/affect normal, Behavior normal, Normal thought content General/Constitutional: Awake, Alert, No acute distress, Well appearing, Well developed Respiratory / Chest: Atraumatic, Breath sounds NL, Breath sounds = bilat, No rales, No rhonchi, No wheezing Heart Rate / Rhythm: Positive: Irreg irregular rhythm, Tachycardia Heart Sounds / Murmur: Positive: Murmur present... Interpretation & Diagnostics Lab Results Interpretation Result Diagram: 10/01/16 0037 10/02/16 0355 Test 10/01/16 00:37 White Blood Count 7.6th/mm3 (3.8-10.1) Red Blood Count 3.98mil/mm3 (4.40-5.80) Hemoglobin 12.2g/dL (13.8-17.2) Hematocrit 37.7% (41.0-50.0) Mean Corpuscular Volume 94.7fL (81-100) Mean Corpuscular Hemoglobin 30.7pg (27.0-35.0) Mean Corpuscular Hemoglobin Concent 32.4% (32.0-37.0) Red Cell Distribution Width 14.2% (12.3-15.4) Platelet Count 143bil/L (150-400) Neutrophils (%) (Auto) 62.8% (40-74) Lymphocytes (%) (Auto) 23.5% (14-46) Monocytes (%) (Auto) 10.5% (4-12) Eosinophils (%) (Auto) 2.5% (0-5) Basophils (%) (Auto) 0.3% (0-3) Prothrombin Time 10.7sec (8.1-12.5) Prothromb Time International Ratio 1.00ratio Total Bilirubin 0.3mg/dL (0.0-1.2) Aspartate Amino Transf (AST/SGOT) 21U/L (0-50) Alanine Aminotransferase (ALT/SGPT) 14U/L (0-44) Alkaline Phosphatase 134U/L (25-160) Pro-B-Type Natriuretic Peptide 3314pg/mL (0-486) Total Protein 8.1g/dL (6.4-8.4) Albumin 3.8g/dL (3.4-5.0) Lab Results Interpretation: BNP indicates evidence of congestive heart failure. All other lab values show no clinical significance. ECG Interpretation ECG Interpretation: A. fib with RVR and nonspecific ST changes Interpreted by: ED physician Rhythm / Conduction: Tachycardia Re-Eval/Medical Decision Med Decision/Clinical Course The patient is now rate controlled with a diltiazem drip, however, he continues to have chest pain. Based on these findings he should be admitted to the hospital for ACS rule out even though he has recently been admitted to the hospital and a full workup has been done. Counseled Regarding: Diagnosis, Lab results, Need for admission Discharge & Departure Shift Change Sign-Out Response to Therapy: Improved Impression: Primary Impression: Atrial fibrillation with rapid ventricular response Additional Impression: Chest pain Chest pain type: unspecified Qualified Code: R07.9 - Chest pain, unspecified Disposition: ADMITTED TO HOSPITAL Discharge Condition All VS Reviewed: Yes Condition: Stable Referrals: [facility] (PCP) Attending Statement I personally took and history and performed a physical exam. 81 year old male with afib and rvr. On going chest pain in spite of now adequate rate control. [facility] for rate control and trend his enzymes. Oneal Montes DO Oct 01, 2016 00:48 Daniel Starr DO Oct 03, 2016 18:10 Lab Results Interpretation: BNP indicates evidence of congestive heart failure. All other lab values show no clinical significance. ECG Interpretation ECG Interpretation: A. fib with RVR and nonspecific ST changes Interpreted by: ED physician Rhythm / Conduction: Tachycardia Re-Eval/Medical Decision Med Decision/Clinical Course The patient is now rate controlled with a diltiazem drip, however, he continues to have chest pain. Based on these findings he should be admitted to the hospital for ACS rule out even though he has recently been admitted to the hospital and a full workup has been done. Counseled Regarding: Diagnosis, Lab results, Need for admission Discharge & Departure Impression: Primary Impression: Atrial fibrillation with rapid ventricular response Additional Impression: Chest pain Chest pain type: unspecified Qualified Code: R07.9 - Chest pain, unspecified Disposition: ADMITTED TO HOSPITAL Discharge Condition All VS Reviewed: Yes Condition: Stable [facility] Oneal Montes DO Oct 01, 2016 00:48
[2016-10-01] MEDS ORDERED: Diltiazem 5 mg/mL 5 mL Inj IVPUSH ONE (01:00)
[2016-10-01 01:26] LABS: Magnesium 1.8 mg/dL (1.6-2.6); TROPONIN T 0.01 ug/L (0.0-0.011)
[2016-10-01] MEDS ORDERED: 0.9% Sodium Chloride 500 ML IV ONE (01:45)
[2016-10-01] MEDS ORDERED: fentaNYL-PF 50 mCg/mL 2 mL Inj IVPUSH ONE (01:45)
[2016-10-01] MEDS ORDERED: Ondansetron 2 mg/mL 2 mL Inj IVPUSH PRN (02:15)
[2016-10-01] MEDS ORDERED: Alum-Mag Hydrox-Simeth 30 mL Suspension PO PRN (02:15)
[2016-10-01] MEDS ORDERED: Polyethylene Glycol (PEG) 17 Gm Powder PO PRN (02:15)
[2016-10-01] MEDS ORDERED: Albuterol-Ipratropium 3 mL Inhalation Solution NEB PRN (02:55)
--- NOTE | 2016-10-01 03:01 | PCM.HPMED ---
Subjective Date of Service Oct 01, 2016 Primary Provider: Admitting Physician: Ankit Mosquera MD [facility] Attending Physician: Ankit Mosquera MD Chief Complaint: Chest pain and heart racing History of Present Illness: Gerardo Young is an 80-year-old with past medical issues significant for CAD status post CABG 4 in 2011, atrial fibrillation, pacemaker for bradycardia, aortic valve replacement, and COPD who presents with sensation of heart racing and chest pain. This episode is the same as his recent occurrence that warranted hospitalization from 09/28/16-09/29/16. Pain began this evening and is described as sternal pressure that does not radiate and is not associated with diaphoresis, nausea, vomiting, or shortness of breath. Patient took nitroglycerin with no improvement and subsequently presented to the ED. On last admission patient's metoprolol was increased to 50 mg which the patient states he has been compliant with. Patient is not on anticoagulation due to subdural hematoma diagnosed in April 2015 and risk of falls. In the ED initial vitals were temperature 36.9, pulse 125, respiratory rate 16, blood pressure 94/79, pulse oximetry 96% on 2 L nasal cannula. Initial labs were unremarkable including a negative troponin of 0.010. EKG was obtained and showed atrial fibrillation with rapid ventricular response but no ischemic changes. Patient was started on a diltiazem drip in the ED that has improved his rate but he continues to be in A. fib. He states his chest pain is much improved with the rate control. Patient will be admitted for continued treatment of his atrial fibrillation. Review of Systems: Comprehensive review of systems was conducted with the patient and found to be negative except as noted above in HPI. Allergies Coded Allergies: morphine (Verified Allergy, Intermediate, RASH, 09/27/16) Home Medications Obtained from recent discharge summary on 09/29/16: Aspirin (Aspirin) 81 Mg Tablet 81 MG PO DAILY (Reported) Atorvastatin Calcium (Atorvastatin Calcium) 40 Mg Tablet 40 MG PO HS Prescribed by: ANDRIY DICKERSON MD Budesonide/Formoterol 160-4.5 mcg Inh (Symbicort 160-4.5 mcg Inh) 120 Puff Inhaler 1 PUFF INHALATION BID Prescribed by: ANDRIY DICKERSON MD Furosemide (Furosemide) 40 Mg Tablet 40 MG PO BID Prescribed by: ANDRIY DICKERSON MD Isosorbide MN ER (Isosorbide MN ER) 60 Mg Tab.er.24h 60 MG PO DAILY Prescribed by: ANDRIY DICKERSON MD Magnesium Oxide (Magnesium Oxide) 420 Mg Tablet 420 MG PO DAILY (Reported) Metoprolol Succinate ER (Metoprolol Succinate ER) 50 Mg Tab.er.24h 50 MG PO DAILY Prescribed by: VERONICA POWERS MD Omeprazole (Omeprazole) 20 Mg Capsule.dr 20 MG PO DAILY (Reported) Oxybutynin Chloride (Oxybutynin Chloride) 5 Mg Tablet 5 MG PO TID (Reported) Prazosin (Minipress) 1 Mg Capsule 1 MG PO HS Prescribed by: ANDRIY DICKERSON MD Sertraline HCl (Sertraline) 50 Mg Tablet 50 MG PO HS (Reported) Simethicone (Gas-X) 80 Mg Tablet 160 MG PO QID (Reported) PMH Recurrent parastomal hernia Subdural hematoma April. Vertebral fracture L11-12 Atrial fibrillation with RVR. Coronary artery disease s/p bypass grafting in 2011 COPD on 2L home oxygen as needed with activity. Heart failure with preserved ejection fraction Hepatitis C Hyperlipidemia. PTSD Bladder dysfunction requiring chronic indwelling Lindsey catheter Pulmonary hypertension Sick sinus syndrome S/P pacemaker History of deep vein thrombosis History of gastric ulcer Anxiety Insomnia Agitation History of drug abuse Endocarditis 3, strep viridans Ischemic colitis s/p partial colectomy Surgical History Craniotomy for benign brain tumor Bioprosthetic aortic valve replacement in 2009 Cholecystectomy CABG 4 in 2011 Pacemaker placement Sigmoid colon resection with colostomy Parastomal hernia repair 2013 Achilles tendon surgery (bilateral) Family History Father with unknown cancer Mother: Alzheimer disease, Social History Hx Alcohol Use: No Hx Substance Use: Yes (IVDU quite 10 years ago) Hx Tobacco Use: Yes (quit in 1994) Smoking Status: Former Smoker Living Arrangement: with Friends/Roommate Exam Vital Signs Vital Sign - Last Date Time Temp Pulse Resp B/P Pulse Ox O2 Delivery O2 Flow Rate FiO2 10/01/16 01:32 82 20 89/56 97 Room Air 10/01/16 00:38 36.9 2 Intake and Output 09/30/16 09/30/16 10/01/16 Cumulative From/Thru 15:00 23:00 07:00 10/01/16 00:41 - 10/01/16 00:41 Output Total 200 ml 200 ml Balance -200 ml -200 ml Output Urine Total 200 ml 200 ml Exam General: Elderly man in no acute distress, appropriately interactive HEENT: Normocephalic, atraumatic. External ears without defect. Cataracts present bilaterally. Right pupil slow to react compared to left (patient states this is his baseline). Edentulous with moist mucosa. Neck: Supple with full range of motion. No jugular venous distension. No bruits. No lymphadenopathy or thyromegaly. Chest: Pace maker palpated in the left chest wall with no surrounding erythema. Well-healed sternotomy scar. Cardiovascular: Tachycardic and irregularly irregular. Difficult to characterize murmur due to rate but one is present. Pulmonary: Diffuse wheezes bilaterally and decreased air movement. Normal respiratory effort with no use of accessory muscles. Abdomen: Soft with normoactive bowel sounds. Colostomy present in the right lower quadrant. Hernia presents distal to stoma and is reducible. Extremities: Peripheral IVs in patient's bilateral hands due to poor access. No lower extremity edema. Skin: Normal temperature, turgor, and texture; no rash, ulcers, or subcutaneous nodules appreciated. Neurological: Cranial nerves grossly intact. Normal muscle strength, tone, and bulk. Ambulates with cane. Psychiatric: Normal mood and affect. Alert and oriented to person, place, and time. Lab and Diagnostics Labs Troponin 0.010 Result Diagram: 10/01/163610/01/1636 12-lead ECG Initial EKG: A fib with rvr Assessment & Plan Gerardo Young is an 80-year-old with past medical issues significant for CAD status post CABG 4 in 2011, atrial fibrillation, pacemaker for her cardia, aortic valve replacement, and COPD who presents with sensation of heart racing and chest pain. Admitted for atrial fibrillation with RVR. Atrial fibrillation with RVR, present on admission, active. - Patient's initial EKG revealed A. fib with heart rate of 129. - Patient was started on a diltiazem drip in the ED with significant improvement with rates 75 and 90. - We will continue diltiazem drip and titrate. - Patient placed on telemetry. - Not on chronic anticoagulation due to subdural hematoma in April 2015. - Electrolytes within normal limits. - Home regimen includes metoprolol succinate increased on 09/29/16 50 mg daily. Chest pain, present on admission, improving. Etiology likely secondary to atrial fibrillation with RVR as pain has been improved with rate control. - Troponin 0.010. One more ordered for 0600. - EKG with no ST changes or signs of ischemia. Coronary artery disease status post CABG in 2011, present on admission, chronic. - Continue aspirin 81 mg daily. - Continue atorvastatin 40 mg daily. Depression, present on admission, chronic. - Continue sertraline 50 mg nightly. COPD, present on admission, chronic. - Continue Symbicort 1 puff BID. - Duonebs every 6 hours when necessary. - Supplemental oxygen as needed to maintain O2 sats between 88-92%. Bladder dysfunction requiring chronic indwelling catheter, present on admission , chronic. - Lindsey catheter changed approximately one week ago. - Continue oxybutynin 5 mg 3 times a day. - Prazosin 1 mg daily. Colostomy, present on admission, chronic. - Orders for colostomy care place. PRN Medications - Acetaminophen as needed for mild pain/fever/headache - Bowel regimen as needed - Antiemetic as needed Patient is admitted under observation status with expected length of stay less than 2 midnights due to severity of presenting symptoms, risk of adverse event, and complexity of treatment plan. VTE Prophylaxis: Sub-Q Heparin (Unfractionated), SCDs Resuscitation Status: CPR: Attempt Resuscitation Attending Statement The patient was seen and examined together with Dr. Ross on 10/01 and I agree with the history, exam and plan as outlined in the note above. BRENDEN ROSS DO Oct 01, 2016 02:12 Ankit Mosquera MD Oct 01, 2016 06:36
--- NOTE | 2016-10-01 07:55 | DRSVH ---
PROCEDURE: X-RAY CHEST ONE VIEW, PORTABLE ([id number]) INDICATIONS: chest pain TECHNIQUE: One view of the chest was acquired. COMPARISON: [facility], CR, XR CHEST 1VW (PORTABLE), 09/27/2016, 21:07. FINDINGS: Surgical changes and devices: Left-sided cardiac pacer. Sternotomy with mediastinal postoperative tai nges. Lungs and pleura: Stable right-sided pleural effusion or pleural scarring. Bibasilar scarring/atelect asis. Mediastinum: Mediastinal contours appear normal. Heart size is normal. Bones and chest wall: No suspicious bony lesions. Overlying soft tissues appear unremarkable. IMPRESSION: Stable right-sided pleural scarring or small pleural effusion. No radiographic evidence of acute cardiopulmonary pathology. Dictated by: Je Pratt M.D. on 10/01/2016 at 7:51 Approved by: Je Pratt M.D. on 10/01/2016 at 7:52
[2016-10-01] MEDS ORDERED: Isosorbide Mononitrate 60 mg ER24 Tablet PO SCH (08:30)
[2016-10-01] MEDS: Fluticasone-Salmererol 250-50 Inhaler INHALATION SCH ×2 (08:54→20:08)
[2016-10-01] MEDS: Pantoprazole 20 mg ER24 Tablet PO SCH (08:54)
[2016-10-01] MEDS: Heparin 5,000 Unit/mL Inj SUBQ SCH ×2 (08:55→17:10)
[2016-10-01 10:44] LABS: APPEARANCE,URINE HAZY (CLEAR,HAZY); COLOR,URINE YELLOW (YELLOW); OCCULT BLOOD,URINE SMALL (NEGATIVE); UROBILINOGEN,URINE NORMAL (NORMAL)
[2016-10-01] MEDS ORDERED: Furosemide 10 mg/mL 2 mL Inj IVPUSH ONE (13:50)
--- NOTE | 2016-10-01 13:57 | PCM.PNMED ---
Subjective Date of Service Oct 01, 2016 Subjective He has a cough for several weeks. Mostly nonproductive. Mild dyspnea. His palpitations are gone. His diltiazem drip was stopped in the ER as his rate control is better. He has not had any chronic rate control medications but does recall the name metoprolol. He has not been seen by cardiology in some time and notes that he had CABG in 2012. Exam Vital Signs Vital Sign - Last Date Time Temp Pulse Resp B/P Pulse Ox O2 Delivery O2 Flow Rate FiO2 10/01/16 13:25 80 10/01/16 13:25 36.7 14 110/60 99 Nasal Cannula 2.00 Intake and Output 09/30/16 09/30/16 10/01/16 Cumulative From/Thru 15:00 23:00 07:00 10/01/16 00:41 - 10/01/16 05:23 Output Total 200 ml 200 ml Balance -200 ml -200 ml Output Urine Total 200 ml 200 ml Exam Alert and oriented -3, no distress. Fluent speech Anicteric sclera. Lungs are with scattered rhonchi in all lung thurston with normal rate and effort Heart is irregular without murmur gallop or rub, not tachycardic Abdomen soft nontender, flat Extremities are free of edema. Skin is free of rash or lesions. IVs and Medications Medications Reviewed: Medications were reviewed in detail Lab and Diagnostics Result Diagram: 10/01/163610/01/1636 12-lead ECG Initial EKG: A fib with rvr Assessment & Plan Gerardo Young is an 80-year-old with past medical issues significant for CAD status post CABG 4 in 2011, atrial fibrillation, pacemaker for her cardia, aortic valve replacement, and COPD who presents with sensation of heart racing and chest pain. Admitted for atrial fibrillation with RVR. Atrial fibrillation with RVR, present on admission, active improved with much better rate control.. - Continue IV diltiazem Start metoprolol 25 by mouth twice a day Last TSH several days ago, normal. Chest x-ray indicates a left angle chronic scarring and a possible pleural effusion, consider CT scan if he fails to improve clinically. Chest pain, present on admission, resolved. Etiology likely secondary to atrial fibrillation with RVR as pain has been improved with rate control. - Troponin 0.010. Second troponin normal. We will follow clinically. Coronary artery disease status post CABG in 2011, present on admission, chronic and presumably stable. No chest pain was related to his tachycardia. - Continue aspirin 81 mg daily. - Continue atorvastatin 40 mg daily. Start beta nguyen, metoprolol 25 twice a day Depression, present on admission, chronic and stable. - Continue sertraline 50 mg nightly. COPD, present on admission, and probable exacerbation. - Continue Symbicort 1 puff BID. - Duonebs every 6 hours when necessary. - Supplemental oxygen as needed to maintain O2 sats between 88-92%. Start doxycycline 100 mg by mouth twice a day Bladder dysfunction requiring chronic indwelling catheter, present on admission , chronic and stable. - Lindsey catheter changed approximately one week ago. - Continue oxybutynin 5 mg 3 times a day. - Prazosin 1 mg daily. Colostomy, present on admission, chronic and stable. - Orders for colostomy care place. PRN Medications - Acetaminophen as needed for mild pain/fever/headache - Bowel regimen as needed - Antiemetic as needed Patient is admitted under observation status with expected length of stay less than 2 midnights due to severity of presenting symptoms, risk of adverse event, and complexity of treatment plan. Anticipate possible discharge on October 02 VTE Prophylaxis: Sub-Q Heparin (Unfractionated), SCDs Resuscitation Status: CPR: Attempt Resuscitation Gerson Mcghee MD Oct 01, 2016 13:56
--- NOTE | 2016-10-01 14:03 | NUR ---
Social Work Note - Initial Assessment Gerardo Young is a 81 yr old admitted for Afib with RVR and chest pain. EMR reviewed: Pt is a readmit - D/C on 09/29/16 to home. Pt's PCP is [facility], his insurance is [facility]. No LTC insurance. No DPOA - MACHINE MOLDER provided paperwork and education. Readmit score not available. See attached CM initial assessment. MACHINE MOLDER met with pt - introduced D/C planning and explained SW role. Pt lives at home with his friend/room mate Светлана Banks [phone]. He uses a Cane and O2 at baseline, does not drive. He has caretakers/chore provider thru the [facility] for 30+ hours a week that help with meals, chores, setting up medications and driving to MD appointments. His O2 is through [employer] - mainly wears it at [facility]. He does not have DPOA - states he wants his room mate - states he is estranged from his children, does not know where they live. No other next of kin. MACHINE MOLDER provided education on DPOA - He will fill out with room mate. Pt would like to return home at d/c. MACHINE MOLDER will continue to follow to assess level of functioning. Assessment: Pt may benefit from Home Health RN PT. Plan: Pt would like to d/c home - room mate to provide education - MACHINE MOLDER will follow for d/c needs. SAMANTHA Pedroza Addendum: 10/01/16 at 1409 by RUMA BRAMBILA SS Amended: Links added.
--- NOTE | 2016-10-01 14:24 | NUR ---
Admit Pt admitted to [facility] from ER at around 1430. A&Ox3, vitals stable, tele placed Afib 70's, no c/o pain. Lindsey and colostomy draining to gravity and intact. Pt oriented to room and call light. All belongings brought with including cell phone and personal cane. rounded shortly after.
--- NOTE | 2016-10-01 22:52 | NUR ---
Nausea Pt c/o of nausea;Zofran 4mg IVP given which was helpful. Call light within in reach and bed in lowest position. Care continues.
[2016-10-02] MEDS: Heparin 5,000 Unit/mL Inj SUBQ SCH ×2 (00:40→09:00)
[2016-10-02 04:28] LABS: Magnesium 1.9 mg/dL (1.6-2.6)
[2016-10-02 05:03] VITALS: BP 98/58; PULSE 65; RESP 20; O2SAT 97
[2016-10-02 05:43] VITALS: PULSE 74
[2016-10-02 08:53] VITALS: BP 124/74; PULSE 75; RESP 20; O2SAT 96
[2016-10-02] MEDS: Fluticasone-Salmererol 250-50 Inhaler INHALATION SCH (08:58)
[2016-10-02] MEDS: Pantoprazole 20 mg ER24 Tablet PO SCH (08:59)
[2016-10-02 11:37] VITALS: PULSE 80
--- NOTE | 2016-10-02 11:45 | PCM.DIMED ---
Kwan Nunez DO 10/02/16 1058: Discharge Instructions Date of Service Oct 02, 2016 Dates of Hospitalization Oct 01, 2016 at 02:07 Discharge Diagnosis Discharge Diagnosis Atrial fibrillation with RVR, present on admission, resolved. Chest pain, present on admission, resolved. Coronary artery disease status post CABG in 2011, present on admission, chronic. Depression, present on admission, chronic. COPD, present on admission, chronic. Bladder dysfunction requiring chronic indwelling catheter, present on admission , chronic. 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 Medication Instructions Additional med instructions - We change the Metoprolol from extended release once daily to Metoprolol tartrate 50mg one tablet twice daily. Diet Discharge Diet: Heart Healthy Activity Discharge Activity: No restrictions Call your provider Call your provider for: Shortness of breath, Chest pain, Weakness (unilateral) Patient Instructions Patient Instructions - Your chest pain is likely due to the rapid heart rate. You developed an irregular rhythm called Atrial Fibrillation. Therefore, it is important that we get the heart rate under control. We changed the Metoprolol dosage as above. Please take it as directed. - We had a long discussion about blood thinner and your risk of develop a stroke. However, because of your recent brain bleed and high risk of falls, we will not start the blood thinner at this time. - Please follow up with your regular doctor and cardiology at the earliest appointment. - To help you with your medications, we will have home health nurses coming to help you with your heart medications. No other changes. - Please use the Oxygen at all time as COPD exacerbation can trigger the Atrial Fibrillation. - Go to the ER if you develop rapid heart rate, chest pain, dizziness, nausea, or vomiting. Follow-up Provider: [facility] Follow-up with PCP in: 1 week Provider: OTHER,PHYSICIAN Follow-up in: 2 weeks (Cardiology at [facility]) Gerson Mcghee MD 10/02/16 1410: Discharge Instructions Attending's Statement Patient seen and examined with house staff. Agree with all attached documentation. Kwan Nunez DO Oct 02, 2016 10:58 Gerson Mcghee MD Oct 02, 2016 14:10
[2016-10-02] MEDS ORDERED: METO50TA3 PO (11:50)
[2016-10-02 12:06] VITALS: BP 114/71; PULSE 75; RESP 18; O2SAT 95
--- NOTE | 2016-10-02 13:12 | NUR ---
Social Work: Discharge/Multidisciplinary Rounds D: pt discussed in am rounds. Pt is medically stable for discharge home. MD requested RING MAKING MACHINE OPERATOR follow up with the patient about home health for RN for medication and disease education. Other than home health no other needs or concerns for capacity for self-care discussed. machine shop worker met with the patient at bedside to assess for discharge needs and follow up with HH recommendation. Pt states that he does not know why his doctors want him to have this additional service and that his caregivers from [facility] do medication management with him. RING MAKING MACHINE OPERATOR informed the patient that HH RN can do more indpepth education and assistance to avoid rehospitalization. Pt declined to have RING MAKING MACHINE OPERATOR arrange for home health for him and states he understands the risks. RING MAKING MACHINE OPERATOR informed MD of this. A: Pt who lives at home iwth a roommmate and [facility] Caregivers. P: Pt to discharge home with resumed caregiving; friend will transport. ERVIN Bardales
--- NOTE | 2016-10-02 14:18 | NUR ---
Discharge Pt discharged to home with transportation by his room mate. Pt's IV's dc'd intact, telemetry removed and tech notified. Pt's follow up appointments, new prescriptions and discharge instructions were reviewed. All questions were answered and pt voiced understanding. Pt's belongings were gathered and transported with pt. Pt was escorted off unit by RN to his room mate's vehicle.
--- NOTE | 2016-10-02 14:59 | PCM.DC.MED ---
Discharge Summary Date of Service Oct 02, 2016 Dates of Hospitalization Date of Hospital Admission Oct 01, 2016 at 02:07 Date of Discharge: Oct 02, 2016 Providers: Admitting Physician: Ankit Mosquera MD Primary Care Physician: [facility] Attending Physician: Gerson Mcghee MD Diagnosis at Time of Discharge Diagnosis at Time of Discharge Paroxysmal atrial fibrillation with RVR, present on admission, resolved. Chest pain, present on admission, resolved. Coronary artery disease status post CABG in 2011, present on admission, chronic. Depression, present on admission, chronic. COPD, present on admission, chronic. Bladder dysfunction requiring chronic indwelling catheter, present on admission , chronic. 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 Procedures ECG 12 Lead Initial EKG: A fib with rvr Brief History Gerardo Young is an 80-year-old with past medical issues significant for CAD status post CABG 4 in 2011, atrial fibrillation, pacemaker for bradycardia, aortic valve replacement, and COPD who presents with sensation of heart racing and chest pain. This episode is the same as his recent occurrence that warranted hospitalization from 09/28/16-09/29/16. Pain began this evening and is described as sternal pressure that does not radiate and is not associated with diaphoresis, nausea, vomiting, or shortness of breath. Patient took nitroglycerin with no improvement and subsequently presented to the ED. On last admission patient's metoprolol was increased to 50 mg which the patient states he has been compliant with. Patient is not on anticoagulation due to subdural hematoma diagnosed in April 2015 and risk of falls. In the ED initial vitals were temperature 36.9, pulse 125, respiratory rate 16, blood pressure 94/79, pulse oximetry 96% on 2 L nasal cannula. Initial labs were unremarkable including a negative troponin of 0.010. EKG was obtained and showed atrial fibrillation with rapid ventricular response but no ischemic changes. Patient was started on a diltiazem drip in the ED that has improved his rate but he continues to be in A. fib. He states his chest pain is much improved with the rate control. Patient will be admitted for continued treatment of his atrial fibrillation. Hospital Course Gerardo Young is an 80-year-old with past medical issues significant for CAD status post CABG 4 in 2011, atrial fibrillation, pacemaker for her cardia, aortic valve replacement, and COPD who presents with sensation of heart racing and chest pain. Admitted for atrial fibrillation with RVR. Paroxysmal atrial fibrillation with RVR, present on admission, active improved with much better rate control.. - Afib with rvr resolved after patient was started on Diltiazem drip in the ER. - Rate has been controlled with metoprolol 25 by mouth twice daily. However, given the fact that he was in this dose prior to his previous hospital visit, will increase to 50mg BID at discharge. - Last TSH several days ago, normal. - CHADSVASC score of 3, but patient is not a candidate for anticoagulation given his fall risk and recent intracranial hemorrhage a year ago (per the patient's report). Risk of stroke discussed with the patient, who verbalized understanding and agreed not to be on anticoagulation. Chest pain, present on admission, resolved. Etiology likely secondary to atrial fibrillation with RVR as pain has been improved with rate control. - Troponin 0.010. Second troponin normal. We will follow clinically. Coronary artery disease status post CABG in 2011, present on admission, chronic and presumably stable. No chest pain was related to his tachycardia. - Continue aspirin 81 mg daily. - Continue atorvastatin 40 mg daily. - Metoprolol 50mg BID. History of bioprosthetic aortic valve replacement, stable. - Patient stated that he has never been on anticoagulation. Depression, present on admission, chronic and stable. - Continue sertraline 50 mg nightly. COPD, present on admission, and probable exacerbation. - Continue Symbicort 1 puff BID. - Duonebs every 6 hours when necessary. - Supplemental oxygen as needed to maintain O2 sats between 88-92%. - Patient reported that he has home O2, but does not use it regularly. Suspect that COPD exacerbation/hypoxia was the cause of the atrial fibrillation. - Recommended the patient to use O2 at all time and have home health nursing staff to help him with medications. - Chest x-ray indicates a left angle chronic scarring and a possible pleural effusion, consider CT scan if he fails to improve clinically. - Patient was given doxycycline 100 mg BID for one day due to concern of persistent cough, but this is chronic per the patient. Given his benign CXR, no further antibiotics is indicated at this point. Bladder dysfunction requiring chronic indwelling catheter, present on admission , chronic and stable. - Lindsey catheter changed approximately one week ago. - Continue oxybutynin 5 mg 3 times a day. - Prazosin 1 mg daily. Colostomy, present on admission, chronic and stable. - Orders for colostomy care place. PRN Medications - Acetaminophen as needed for mild pain/fever/headache - Bowel regimen as needed - Antiemetic as needed Patient is admitted under observation status with expected length of stay less than 2 midnights due to severity of presenting symptoms, risk of adverse event, and complexity of treatment plan. Anticipate possible discharge on October 02 Exam Vital Signs (Last) Date Time Temp Pulse Resp B/P Pulse Ox O2 Delivery O2 Flow Rate FiO2 10/02/16 09:03 Supplement Oxygen 10/02/16 08:53 36.0 75 20 124/74 96 2.00 Exam General: Elderly man in no acute distress, appropriately interactive HEENT: Normocephalic, atraumatic. External ears without defect. Cataracts present bilaterally. Edentulous with moist mucosa. Neck: Supple with full range of motion. No jugular venous distension. No bruits. No lymphadenopathy or thyromegaly. Chest: Pace maker palpated in the left chest wall with no surrounding erythema. Well-healed sternotomy scar. Cardiovascular: Regular rate and rhythm. III/ systolic murmur. Pulmonary: Scattered rales with no wheezes. Normal respiratory effort with no use of accessory muscles. Abdomen: Soft with normoactive bowel sounds. Colostomy present in the right lower quadrant. Large hernia presents distal to stoma and is reducible. Extremities: No lower extremity edema. Skin: Normal temperature, turgor, and texture; no rash, ulcers, or subcutaneous nodules appreciated. Neurological: Cranial nerves grossly intact. Normal muscle strength, tone, and bulk. Ambulates with cane. Psychiatric: Normal mood and affect. Alert and oriented to person, place, and time. Test 10/01/16 00:37 10/01/16 07:00 10/01/16 09:34 10/02/16 03:55 White Blood Count 7.6th/mm3 (3.8-10.1) Red Blood Count 3.98mil/mm3 (4.40-5.80) Hemoglobin 12.2g/dL (13.8-17.2) Hematocrit 37.7% (41.0-50.0) Mean Corpuscular Volume 94.7fL (81-100) Mean Corpuscular Hemoglobin 30.7pg (27.0-35.0) Mean Corpuscular Hemoglobin Concent 32.4% (32.0-37.0) Red Cell Distribution Width 14.2% (12.3-15.4) Platelet Count 143bil/L (150-400) Neutrophils (%) (Auto) 62.8% (40-74) Lymphocytes (%) (Auto) 23.5% (14-46) Monocytes (%) (Auto) 10.5% (4-12) Eosinophils (%) (Auto) 2.5% (0-5) Basophils (%) (Auto) 0.3% (0-3) Prothrombin Time 10.7sec (8.1-12.5) Prothromb Time International Ratio 1.00ratio Total Bilirubin 0.3mg/dL (0.0-1.2) Aspartate Amino Transf (AST/SGOT) 21U/L (0-50) Alanine Aminotransferase (ALT/SGPT) 14U/L (0-44) Alkaline Phosphatase 134U/L (25-160) Pro-B-Type Natriuretic Peptide 3314pg/mL (0-486) Total Protein 8.1g/dL (6.4-8.4) Albumin 3.8g/dL (3.4-5.0) Troponin T 0.010ug/L (0.0-0.011) Urine Color Yellow (YELLOW) Urine Appearance Hazy (CLEAR,HAZY) Urine pH 6.0 (5.0-8.0) Urine Specific Rena Lara 1.020 (1.003-1.035) Urine Protein Negativemg/dL (NEG,TRACE) Urine Glucose (UA) Negativemg/dL (NEGATIVE) Urine Ketones Negativemg/dL (NEGATIVE) Urine Occult Blood Small (NEGATIVE) Urine Nitrite Positive (NEGATIVE) Urine Bilirubin Negative (NEGATIVE) Urine Urobilinogen Normalmg/dL (NORMAL) Urine Leukocyte Esterase Large (NEGATIVE) Urine RBC 0-2/hpf (0-2) Urine WBC 11-50/hpf (0-5) Urine Epithelial Cells Occasional/hpf (NONE-MOD) Urine Crystals None seen (NONE SEEN) Urine Bacteria Many/hpf (NONE-FEW) Urine Hyaline Casts None/lpf (NONE) Urine Granular Casts None seen (NONE SEEN) Urine Waxy Casts None seen (NONE SEEN) Urine Red Blood Cell Casts None seen (NONE SEEN) Urine White Blood Cell Casts None seen (NONE SEEN) Urine Mucus None seen (None Seen) Urine Trichomonas None seen (NONE SEEN) Urine Yeast None (NONE SEEN) Urinalysis Comment None Urine Culture Reflexed Indicated Sodium Level 141mEq/L (134-144) Potassium Level 3.9mEq/L (3.5-5.2) Chloride Level 104mEq/L (97-108) Carbon Dioxide Level 25mmol/L (18-29) Blood Urea Nitrogen 21mg/dL (8-27) Creatinine 1.07mg/dL (0.76-1.27) Estimat Glomerular Filtration Rate 70mL/min (>59) Glucose Level 150mg/dL (60-99) Calcium Level 8.5mg/dL (8.5-10.1) Magnesium Level 1.9mg/dL (1.6-2.6) Discharge Medications Discharge Medications Aspirin (Aspirin) 81 Mg Tablet 81 MG PO DAILY (Reported) Atorvastatin Calcium (Atorvastatin Calcium) 40 Mg Tablet 40 MG PO HS Prescribed by: ANDRIY DICKERSON MD Budesonide/Formoterol 160-4.5 mcg Inh (Symbicort 160-4.5 mcg Inh) 120 Puff Inhaler 1 PUFF INHALATION BID Prescribed by: ANDRIY DICKERSON MD Furosemide (Furosemide) 40 Mg Tablet 40 MG PO BID Prescribed by: ANDRIY DICKERSON MD Isosorbide MN ER (Isosorbide MN ER) 60 Mg Tab.er.24h 60 MG PO DAILY Prescribed by: ANDRIY DICKERSON MD Magnesium Oxide (Magnesium Oxide) 420 Mg Tablet 420 MG PO DAILY (Reported) Metoprolol Tartrate (Metoprolol Tartrate) 50 Mg Tablet 50 MG PO BID Prescribed by: KWAN LITTEL DO Omeprazole (Omeprazole) 20 Mg Capsule.dr 20 MG PO DAILY (Reported) Oxybutynin Chloride (Oxybutynin Chloride) 5 Mg Tablet 5 MG PO TID (Reported) Prazosin (Minipress) 1 Mg Capsule 1 MG PO HS Prescribed by: ANDRIY DICKERSON MD Sertraline HCl (Sertraline) 50 Mg Tablet 50 MG PO HS (Reported) Simethicone (Gas-X) 80 Mg Tablet 160 MG PO QID (Reported) As needed Albuterol Sulfate (Ventolin HFA Inhaler) 200 Puff/18 Gm Inhaler 2 PUFF INH QID PRN PRN For Wheezing (Reported) Docusate Sodium (Docusate Sodium) 250 Mg Capsule 200 MG PO BID PRN PRN For Constipation (Reported) HydrOXYzine HCl (HydrOXYzine HCl) 10 Mg Tablet 10 MG PO TID PRN PRN For Itching (Reported) Nitroglycerin SL (Nitrostat) 0.4 Mg Tab.subl 0.3 MG SL Q5MIN PRN PRN For Chest Pain (Reported) Additional med instructions - We change the Metoprolol from extended release once daily to Metoprolol tartrate 50mg one tablet twice daily. Followup Plan Disposition: Home with home health Discharge Diet: Heart Healthy Discharge Activity: No restrictions Patient Instructions - Your chest pain is likely due to the rapid heart rate. You developed an irregular rhythm called Atrial Fibrillation. Therefore, it is important that we get the heart rate under control. We changed the Metoprolol dosage as above. Please take it as directed. - We had a long discussion about blood thinner and your risk of develop a stroke. However, because of your recent brain bleed and high risk of falls, we will not start the blood thinner at this time. - Please follow up with your regular doctor and cardiology at the earliest appointment. - To help you with your medications, we will have home health nurses coming to help you with your heart medications. No other changes. - Please use the Oxygen at all time as COPD exacerbation can trigger the Atrial Fibrillation. - Go to the ER if you develop rapid heart rate, chest pain, dizziness, nausea, or vomiting. [facility] Follow-up with PCP in: 1 week Provider: OTHER,PHYSICIAN Follow-up in: 2 weeks (Cardiology at [facility]) Time spent 40 minutes Attending Statement The patient was seen and examined with staff. Agree with all attached documentation. copies to: [facility] Kwan Little DO Oct 02, 2016 11:50 Gerson Mcghee MD Oct 03, 2016 13:25
== END 2016-10-02 14:10 | disposition home health service (06) ==
LOC: SED 00:26 → INTOOBSV 02:07 → OFED 02:07 → PCC 13:56
PROVIDERS: ADMIT Hospitalist; ATTEND Hospitalist
DX: I48.0 Paroxysmal atrial fibrillation (principal); R00.0 Tachycardia, unspecified; R07.9 Chest pain, unspecified; I25.10 Atherosclerotic heart disease of native coronary artery without angina pectoris; F32.9 Major depressive disorder, single episode, unspecified; J44.9 Chronic obstructive pulmonary disease, unspecified; N31.9 Neuromuscular dysfunction of bladder, unspecified; B19.20 Unspecified viral hepatitis C without hepatic coma; E78.5 Hyperlipidemia, unspecified; F43.10 Post-traumatic stress disorder, unspecified; I27.2 Other secondary pulmonary hypertension; I49.5 Sick sinus syndrome; F41.9 Anxiety disorder, unspecified; G47.00 Insomnia, unspecified; I38 Endocarditis, valve unspecified; Z86.718 Personal history of other venous thrombosis and embolism; Z93.3 Colostomy status; Z95.1 Presence of aortocoronary bypass graft; Z95.0 Presence of cardiac pacemaker; Z95.2 Presence of prosthetic heart valve; Z87.898 Personal history of other specified conditions; Z79.82 Long term (current) use of aspirin
CPT/HCPCS: 36415; 71010; 80048; 80053; 81000; 83735; 83880; 84484; 85025; 85610; 87086; 87088; 87186; 93005; 96374; 96375; 99285; G0378; J1644; J1940; J2405; J3010; J7040

== ENCOUNTER 2016-11-06 19:27 | Emergency (ER) | payer OTHER ==
[~2016-11-06] VITALS: Ht 167.6 cm; Wt 81.8 kg
[~2016-11-06 19:27] MED LIST changes: -METO-272 PO; +METO50TA3 PO
[2016-11-06 19:39] VITALS: BP 116/76; PULSE 84; RESP 16; O2SAT 97
[2016-11-06 21:05] LABS: BASOPHILS % (AUTO) 0.3 % (0-3); EOSINOPHILS % (AUTO) 2.5 % (0-5); MONOCYTES % (AUTO) 9.7 % (4-12); Mean Corpuscular Hemoglobin 30.3 pg (27.0-35.0); Mean Corpuscular Volume 98.1 fL (81-100); NEUTROPHILS % (AUTO) 69.8 % (40-74); Platelet Count 133 bil/L (150-400)
[2016-11-06 21:26] LABS: TROPONIN T 0.01 ug/L (0.0-0.011)
[2016-11-06 21:38] LABS: Magnesium 1.9 mg/dL (1.6-2.6)
--- NOTE | 2016-11-06 21:54 | ED.REPORT ---
HPI-General Illness Date of Service Nov 06, 2016 ED Provider: Mu Mckeon MD Pt is an 81 year old male with a hx of HTN CHF, COPD, afib, CAD, hyperlipidemia , and GERD presenting to the ED complaining of cramping in his arms and legs onset last night. He also complains of crustiness in his eyes. Denies diarrhea, nausea, vomiting, or fever. Nursing Notes Stated Complaint: CRAMPING IN ARMS AND HANDS Chief Complaint: General Complaint Nursing Notes Reviewed: Yes Allergies: Coded Allergies: morphine (Verified Allergy, Intermediate, RASH, 11/06/16) Scheduled Aspirin (Aspirin) 81 Mg Tablet 81 MG PO DAILY Atorvastatin Calcium (Atorvastatin Calcium) 40 Mg Tablet 40 MG PO HS Budesonide/Formoterol 160-4.5 mcg Inh (Symbicort 160-4.5 mcg Inh) 120 Puff Inhaler 1 PUFF INHALATION BID Furosemide (Furosemide) 40 Mg Tablet 40 MG PO BID Isosorbide MN ER (Isosorbide MN ER) 60 Mg Tab.er.24h 60 MG PO DAILY Magnesium Oxide (Magnesium Oxide) 420 Mg Tablet 420 MG PO DAILY Metoprolol Tartrate (Metoprolol Tartrate) 50 Mg Tablet 50 MG PO BID Omeprazole (Omeprazole) 20 Mg Capsule.dr 20 MG PO DAILY Oxybutynin Chloride (Oxybutynin Chloride) 5 Mg Tablet 5 MG PO TID Potassium Chloride (Klor-Con Sprinkle) 10 Meq Capsule.er 10 MEQ PO BID Prazosin (Minipress) 1 Mg Capsule 1 MG PO HS Sertraline HCl (Sertraline) 50 Mg Tablet 50 MG PO HS Simethicone (Gas-X) 80 Mg Tablet 160 MG PO QID Scheduled PRN Albuterol Sulfate (Ventolin HFA Inhaler) 200 Puff/18 Gm Inhaler 2 PUFF INH QID PRN PRN For Wheezing Docusate Sodium (Docusate Sodium) 250 Mg Capsule 200 MG PO BID PRN PRN For Constipation HydrOXYzine HCl (HydrOXYzine HCl) 10 Mg Tablet 10 MG PO TID PRN PRN For Itching Nitroglycerin SL (Nitrostat) 0.4 Mg Tab.subl 0.3 MG SL Q5MIN PRN PRN For Chest Pain General Time Seen by MD: 21:52 Chief Complaint Other (Muscle cramping) Hx Obtained From: Patient Arrived By: Walk-in Sudden in Onset?: Yes Onset Occurred: Yesterday Symptom Duration: Intermittent Location: : Arm left: Arm right: Leg left: Leg right Quality: Painful Severity: Current: Moderate Severity: Maximum: Severe Recent Healthcare: No recent doctor visit, No recent hospitalization Similar Sx Previous: No Past Medical History Past Medical History Notes: PCP: Dr. Viveros at the [facility] Past Medical History PAST MEDICAL HISTORY: 1. HTN 2. murmur 3. He has history of COPD on home oxygen, which was started about three months ago. He was diagnosed to have COPD around 2006. Known FEV1 in 2006 of 0.96. No history of childhood asthma. 4. History of coronary artery disease, with history of coronary bypass grafting around May 2002 with bovine aortic valve replacement for aortic stenosis at the same time. He subsequently had a repeat coronary bypass grafting around 2006 or 2007, but I cannot confirm this. He said he had cardiac catheterization about 2 months ago at the [facility] and was told that one of his bypass grafts was fine, but the other one was probably obstructed, but stents were not placed. The patient had a previous echocardiogram on April 29, 2011, which revealed normal left ventricular systolic function, with ejection fraction of about 55% to 60%. There is moderate tricuspid regurgitation. There is a bioprosthetic aortic valve. The leaflets are not well seen. The peak velocity of 4.1 msec, which is compatible with koqegleu-jo-unonaj aortic stenosis. Aortic valve area 0.79 cm squared. 5. He has a history of streptococcus viridans endocarditis in 2000, due to IV drug use. 6. 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 7. He has no history of thyroid dysfunction. 8. He has history of hyperlipidemia. 9. He has no history of cancer. 10. He has a diagnosis of posttraumatic stress disorder. 11. He has a history of hepatitis C infection. 12. He has a history of benign prostatic hypertrophy. 13. History of hiatal hernia. 14. History of ventral hernia. Reports: COPD, Congestive heart failure, Coronary artery disease, GERD, Hyperlipidemia, Hypertension Reports: Atrial fibrillation Past Surgical History Includes colon resection with colostomy in 2007 secondary to ischemic colitis. 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 cholecystectomy. aortic valve replacement (bovine) around 2002 for aortic valve stenosis associated with coronary bypass grafting. He again had coronary bypass grafting July 2007 (which was a redo CABG) Bilat achilles tendon repair Reports: Angioplasty Reports: Pacemaker insertion Family History Noncontributory Smoking History Former Smoker Social History Residing at [facility] due to recent injuries (broken back, subdural hemorrhage)- this was a previous reporT, Today he states he lives in a trailer with a roommate in [facility]. Alcohol Use: 1-3 per week Drug Use: In recovery Other Social History: Local resident Ambulatory Status Cane Review of Systems Full Review of Systems Constitutional: Denies: Fever Eyes: Reports: Discharge left, Discharge right GI: Denies: Diarrhea, Nausea, Vomiting Musculoskeletal: Reports: Extremity pain Physical Exam Vital Signs Vital Signs Date Time Temp Pulse Resp B/P Pulse Ox O2 Delivery O2 Flow Rate FiO2 11/06/16 22:51 96 20 133/74 98 Nasal Cannula 1 11/06/16 19:39 37.3 84 16 116/76 97 Nasal Cannula 3 Initial VS: Reviewed General/Constitutional: Well-developed, Well-nourished Head / Eyes: Atraumatic, Normocephalic, PERRL ENT: Mucous membranes moist, Conjunctiva normal, No scleral icterus Neck: Supple, Non-tender, Full range of motion Respiratory: Breath sounds normal, Clear to auscultation, No respiratory distress Cardiovascular: Regular rate & rhythm, Heart sounds normal, Intact distal pulses Extremities: Vascular intact, Neuro intact, No swelling, No tenderness Skin: Warm, Dry, No cyanosis Neurologic: Alert, Oriented, Nonfocal Psychiatric: Mood/affect normal, Behavior normal, Normal thought content Abdomen: Atraumatic, Soft, Non-tender Ostomy on the right side full of stool. Leg bag as well. Interpretation & Diagnostics Lab Results Interpretation Result Diagram: 11/06/16204911/06/162049 Test 11/06/16 20:50 White Blood Count 6.8th/mm3 (3.8-10.1) Red Blood Count 3.20mil/mm3 (4.40-5.80) Hemoglobin 9.7g/dL (13.8-17.2) Hematocrit 31.4% (41.0-50.0) Mean Corpuscular Volume 98.1fL (81-100) Mean Corpuscular Hemoglobin 30.3pg (27.0-35.0) Mean Corpuscular Hemoglobin Concent 30.9% (32.0-37.0) Red Cell Distribution Width 13.9% (12.3-15.4) Platelet Count 133bil/L (150-400) Neutrophils (%) (Auto) 69.8% (40-74) Lymphocytes (%) (Auto) 17.4% (14-46) Monocytes (%) (Auto) 9.7% (4-12) Eosinophils (%) (Auto) 2.5% (0-5) Basophils (%) (Auto) 0.3% (0-3) Sodium Level 141mEq/L (134-144) Potassium Level 3.3mEq/L (3.5-5.2) Chloride Level 102mEq/L (97-108) Carbon Dioxide Level 25mmol/L (18-29) Blood Urea Nitrogen 15mg/dL (8-27) Creatinine 0.89mg/dL (0.76-1.27) Estimat Glomerular Filtration Rate 87mL/min (>59) Glucose Level 92mg/dL (60-99) Calcium Level 8.4mg/dL (8.5-10.1) Magnesium Level 1.9mg/dL (1.6-2.6) Total Bilirubin 0.3mg/dL (0.0-1.2) Aspartate Amino Transf (AST/SGOT) 17U/L (0-50) Alanine Aminotransferase (ALT/SGPT) 12U/L (0-44) Alkaline Phosphatase 113U/L (25-160) Troponin T 0.010ug/L (0.0-0.011) Total Protein 7.7g/dL (6.4-8.4) Albumin 3.9g/dL (3.4-5.0) Hold Perez Top Tube Received (Received) ECG Interpretation ECG Interpretation: Afib. Ventricular premature complex. RBBB. Repol abnormality suggests ischemia, diffuse leads. Time: 20:25 Interpreted by: ED physician Normal ECG Interpretation: Normal rate (86) Re-Eval/Medical Decision Med Decision/Clinical Course 81-year-old presents with leg and arm cramps. He is moderately hypokalemic and will be supplemented. He denies any diarrhea or fluid losses. However, he has a colostomy and may indeed have increased potassium losses. Begun with potassium 10 mEq twice a day. Secondary issues of declining hemoglobin. He is 9.7 here tonight. This needs follow-up as he has dropped 2.5 g of hemoglobin over the past two months. No evidence of melena in his colostomy bag. Incidental note also made of apparent bacterial conjunctivitis with gluing of his eyelids in the mornings. Begun with sulfacetamide drops for home use. Time of Eval: 22:38 Patient Status: Condition improved Re-Evaluation/Progress Note: Discussed plan for discharge. Pt understands and agrees. Counseled Regarding: Diagnosis, Lab results, Need for follow-up, When/why to return to ED Discharge & Departure Primary Impression: Muscle cramps Additional Impressions: Anemia Anemia type: unspecified type Qualified Code: D64.9 - Anemia, unspecified Hypokalemia Conjunctivitis Disposition: Home Discharge Condition All VS Reviewed: Yes Condition: Improved Patient Instructions: Conjunctivitis (ED), Hypokalemia (ED), Leg Cramps (ED) Additional Instructions: Your potassium is low. This is often associated with leg and arm cramps. You are also experiencing a declining blood count, and this needs to be investigated further. Call your doctor Wednesday for follow-up. Return if any immediate troubles over the weekend, particularly any dark looking or black stool in your ostomy bag, abdominal pain, or any other new symptom of concern. Begin potassium twice daily with food. Begin eyedrops one drop in each eye every two hours while awake for five days. [facility] Scribe Attestation Portions of this note were transcribed by Malena Guerrero. I, Dr. Mckeon personally performed the history, physical exam and medical decision-making; I reviewed and confirmed the accuracy of the information in the transcribed note. Signed by: Daphne Flannery, 11/06/2016. copies to: [facility] Mu Mckeon MD Nov 06, 2016 21:54 MALENA GUERRERO Nov 06, 2016 22:00
[2016-11-06] MEDS ORDERED: Sulfacetamide 10% 15 mL Ophthalmic Solution BOTH_EYES ONE (22:00)
[2016-11-06] MEDS ORDERED: Potassium Chloride 20 mEq SR Tablet PO ONE (22:00)
[2016-11-06] MEDS ORDERED: Sulfacetamide 10% 15 mL Ophthalmic Solution BOTH_EYES SCH ×2 (22:05→22:15)
[2016-11-06] MEDS ORDERED: POTA10CA PO (22:23)
[2016-11-06 22:51] VITALS: BP 133/74; PULSE 96; RESP 20; O2SAT 98
== END 2016-11-06 22:53 | disposition home or self-care (01) ==
LOC: SED 19:27
DX: R25.2 Cramp and spasm (principal); D64.9 Anemia, unspecified; E87.6 Hypokalemia; H10.9 Unspecified conjunctivitis; I10 Essential (primary) hypertension; I50.9 Heart failure, unspecified; J44.9 Chronic obstructive pulmonary disease, unspecified; I48.91 Unspecified atrial fibrillation; E78.5 Hyperlipidemia, unspecified; K21.9 Gastro-esophageal reflux disease without esophagitis; Z95.0 Presence of cardiac pacemaker; Z99.81 Dependence on supplemental oxygen; Z95.5 Presence of coronary angioplasty implant and graft; Z93.3 Colostomy status; Z79.51 Long term (current) use of inhaled steroids; Z79.82 Long term (current) use of aspirin; Z88.5 Allergy status to narcotic agent

== ENCOUNTER 2016-11-10 22:41 | Emergency (ER) | payer OTHER ==
[~2016-11-10] VITALS: Ht 167.6 cm; Wt 79.5 kg
[~2016-11-10 22:41] MED LIST changes: +POTA10CA PO
--- NOTE | 2016-11-10 22:52 | ED.REPORT ---
HPI-General Illness Date of Service Nov 10, 2016 ED Provider: Mu Mckeon MD An 81 year old male with a history of COPD, CAD, hypertension, COPD, hyperlipidemia and atrial fibrillation is brought to the ED via EMS due to chest pain. The pt has been experiencing increasing chest pain since this afternoon that is exacerbated by movement and deep breathing. This is accompanied by high blood pressure, tachycardia and productive cough with yellow sputum. The pt is not taking antibiotics but is using his nebulizer four to five times daily. Nursing Notes Stated Complaint: CHEST PAIN/ COUGH Nursing Notes Reviewed: Yes Allergies: Coded Allergies: morphine (Verified Allergy, Intermediate, RASH, 11/06/16) Scheduled Aspirin (Aspirin) 81 Mg Tablet 81 MG PO DAILY Atorvastatin Calcium (Atorvastatin Calcium) 40 Mg Tablet 40 MG PO HS Budesonide/Formoterol 160-4.5 mcg Inh (Symbicort 160-4.5 mcg Inh) 120 Puff Inhaler 1 PUFF INHALATION BID Furosemide (Furosemide) 40 Mg Tablet 40 MG PO BID Furosemide (Lasix) 80 Mg Tablet 80 MG PO DAILY Isosorbide MN ER (Isosorbide MN ER) 60 Mg Tab.er.24h 60 MG PO DAILY Magnesium Oxide (Magnesium Oxide) 420 Mg Tablet 420 MG PO DAILY Metoprolol Tartrate (Metoprolol Tartrate) 50 Mg Tablet 50 MG PO BID Omeprazole (Omeprazole) 20 Mg Capsule.dr 20 MG PO DAILY Oxybutynin Chloride (Oxybutynin Chloride) 5 Mg Tablet 5 MG PO TID Potassium Chloride (Klor-Con Sprinkle) 10 Meq Capsule.er 10 MEQ PO BID Prazosin (Minipress) 1 Mg Capsule 1 MG PO HS Sertraline HCl (Sertraline) 50 Mg Tablet 50 MG PO HS Simethicone (Gas-X) 80 Mg Tablet 160 MG PO QID Scheduled PRN Albuterol Sulfate (Ventolin HFA Inhaler) 200 Puff/18 Gm Inhaler 2 PUFF INH QID PRN PRN For Wheezing Docusate Sodium (Docusate Sodium) 250 Mg Capsule 200 MG PO BID PRN PRN For Constipation HydrOXYzine HCl (HydrOXYzine HCl) 10 Mg Tablet 10 MG PO TID PRN PRN For Itching Nitroglycerin SL (Nitrostat) 0.4 Mg Tab.subl 0.3 MG SL Q5MIN PRN PRN For Chest Pain General Time Seen by MD: 22:51 Chief Complaint Chest pain Hx Obtained From: Patient, EMS Arrived By: Ambulance Sudden in Onset?: No Onset Occurred: 5 - 8 hours ago Symptom Duration: Since onset Recent Healthcare: Recent doctor visit, Recent hospitalization Similar Sx Previous: Yes Past Medical History Past Medical History Notes: PCP: Dr. Viveros at the [facility] Past Medical History PAST MEDICAL HISTORY: 1. HTN 2. murmur 3. He has history of COPD on home oxygen, which was started about three months ago. He was diagnosed to have COPD around 2006. Known FEV1 in 2006 of 0.96. No history of childhood asthma. 4. History of coronary artery disease, with history of coronary bypass grafting around May 2002 with bovine aortic valve replacement for aortic stenosis at the same time. He subsequently had a repeat coronary bypass grafting around 2006 or 2007, but I cannot confirm this. He said he had cardiac catheterization about 2 months ago at the [facility] and was told that one of his bypass grafts was fine, but the other one was probably obstructed, but stents were not placed. The patient had a previous echocardiogram on April 29, 2011, which revealed normal left ventricular systolic function, with ejection fraction of about 55% to 60%. There is moderate tricuspid regurgitation. There is a bioprosthetic aortic valve. The leaflets are not well seen. The peak velocity of 4.1 msec, which is compatible with [id number] aortic stenosis. Aortic valve area 0.79 cm squared. 5. He has a history of streptococcus viridans endocarditis in 2000, due to IV drug use. 6. 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 7. He has no history of thyroid dysfunction. 8. He has history of hyperlipidemia. 9. He has no history of cancer. 10. He has a diagnosis of posttraumatic stress disorder. 11. He has a history of hepatitis C infection. 12. He has a history of benign prostatic hypertrophy. 13. History of hiatal hernia. 14. History of ventral hernia. Reports: COPD, Congestive heart failure, Coronary artery disease, GERD, Hyperlipidemia, Hypertension Reports: Atrial fibrillation Past Surgical History Includes colon resection with colostomy in 2007 secondary to ischemic colitis. 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 cholecystectomy. aortic valve replacement (bovine) around 2002 for aortic valve stenosis associated with coronary bypass grafting. He again had coronary bypass grafting July 2007 (which was a redo CABG) Bilat achilles tendon repair Reports: Angioplasty Reports: Pacemaker insertion Family History Noncontributory Smoking History Former Smoker Social History Residing at [facility] due to recent injuries (broken back, subdural hemorrhage)- this was a previous reporT, Today he states he lives in a trailer with a roommate in [facility]. Alcohol Use: 1-3 per week Drug Use: In recovery Other Social History: Local resident Ambulatory Status Cane Review of Systems Full Review of Systems Respiratory: Reports: Prod cough, yellow Cardiovascular: Reports: Chest pain GI: Denies: Abdominal pain, Vomiting Musculoskeletal: Denies: Back pain, Neck pain Skin: Denies Rash Complete sys rev & neg: except as marked. Physical Exam Vital Signs Vital Signs Date Time Temp Pulse Resp B/P Pulse Ox O2 Delivery O2 Flow Rate FiO2 11/11/16 03:08 75 28 132/73 96 Nasal Cannula 2 11/11/16 03:01 75 28 132/73 96 Nasal Cannula 2 11/11/16 02:10 80 20 123/66 96 Room Air 11/11/16 01:20 81 24 113/63 96 Room Air 11/11/16 00:54 86 24 108/67 96 Nasal Cannula 2 11/11/16 00:00 81 17 101/64 95 Nasal Cannula 2 11/10/16 23:32 82 14 95/64 96 Room Air 11/10/16 23:00 36.8 87 17 106/66 94 Nasal Cannula 2 Initial VS: Reviewed General/Constitutional: Awake, Alert Head / Eyes: Atraumatic, Normocephalic, PERRL, EOMI ENT: Atraumatic, Airway patent, Mucous membranes moist Neck: Atraumatic, Supple, Full range of motion Respiratory / Chest: Atraumatic, Breath sounds = bilat, No respiratory distress bilateral rhonchi Cardiovascular: Heart rate NL, Heart sounds NL Heart Rate / Rhythm: Positive: Irregular rhythm Abdomen: Soft abdominal tenderness induration and exoriation of the lower abdomen Back: Atraumatic, Full range of motion Upper Extremities Upper Extremity / MS: Atraumatic, Full range of motion Lower Extremity / Pelvis / MS: Atraumatic, Full range of motion Skin: Color NL, No rash, Warm, Dry Neurologic: Oriented X3, Speech NL, No motor deficits, No sensory deficits Psychiatric: Affect NL, Mood NL Interpretation & Diagnostics Lab Results Interpretation Result Diagram: 11/11/16 0002 11/11/16 0002 Test 11/11/16 00:02 White Blood Count 5.4th/mm3 (3.8-10.1) Red Blood Count 3.10mil/mm3 (4.40-5.80) Hemoglobin 9.1g/dL (13.8-17.2) Hematocrit 30.1% (41.0-50.0) Mean Corpuscular Volume 97.1fL (81-100) Mean Corpuscular Hemoglobin 29.4pg (27.0-35.0) Mean Corpuscular Hemoglobin Concent 30.2% (32.0-37.0) Red Cell Distribution Width 13.8% (12.3-15.4) Platelet Count 128bil/L (150-400) Neutrophils (%) (Auto) 71.1% (40-74) Lymphocytes (%) (Auto) 14.0% (14-46) Monocytes (%) (Auto) 13.2% (4-12) Eosinophils (%) (Auto) 1.1% (0-5) Basophils (%) (Auto) 0.6% (0-3) Sodium Level 140mEq/L (134-144) Potassium Level 4.3mEq/L (3.5-5.2) Chloride Level 100mEq/L (97-108) Carbon Dioxide Level 25mmol/L (18-29) Blood Urea Nitrogen 23mg/dL (8-27) Creatinine 0.97mg/dL (0.76-1.27) Estimat Glomerular Filtration Rate 79mL/min (>59) Glucose Level 119mg/dL (60-99) Calcium Level 8.6mg/dL (8.5-10.1) Magnesium Level 1.9mg/dL (1.6-2.6) Total Bilirubin 0.3mg/dL (0.0-1.2) Aspartate Amino Transf (AST/SGOT) 14U/L (0-50) Alanine Aminotransferase (ALT/SGPT) 11U/L (0-44) Alkaline Phosphatase 105U/L (25-160) Troponin T 0.010ug/L (0.0-0.011) Pro-B-Type Natriuretic Peptide 9356pg/mL (0-486) Total Protein 7.0g/dL (6.4-8.4) Albumin 3.4g/dL (3.4-5.0) Hold Perez Top Tube Received (Received) ECG Interpretation ECG Interpretation: ventricular-paced complexes with a rate of 81 RBBB nonspecific T abnormalities, lateral leads Time: 23:37 Interpreted by: ED physician X-Ray Chest Interpretation Chest Xray Interpretation: increased CHF appearance Interpretation / Wet Read by: Wet read ED physician Re-Eval/Medical Decision Med Decision/Clinical Course 81-year-old with COPD CHF and coronary disease presents with a sharp pleuritic chest pain for days. He has some mild dyspnea worsening and a mildly productive cough. X-ray shows fluffy perivascular markings consistent with pulmonary edema and congestive heart failure. No evidence of pneumonia. Labs are otherwise unremarkable. He is given an additional dose of eighty of Lasix and instructed to increase his Lasix by 40 mg each morning to make an dose of eighty every morning and forty every afternoon. He is discharged now in stable [facility] No evidence of coronary ischemia story not consistent in any case. No evidence of pneumonia or acute infection. Source of Hx: Old records Time of Eval: 02:07 Patient Status: Condition improved Re-Evaluation/Progress Note: Pt rechecked, whose condition has improved. The diagnosis and plan for discharge are discussed. The pt understands and agrees with the plan. All questions are addressed at this time. Counseled Regarding: Diagnosis, Lab results, Need for follow-up, When/why to return to ED Discharge & Departure Primary Impression: Congestive heart failure Congestive heart failure type: combined Congestive heart failure chronicity: acute on chronic Qualified Code: I50.43 - Acute on chronic combined systolic (congestive) and diastolic (congestive) heart failure Additional Impressions: COPD (chronic obstructive pulmonary disease) Chest pain with low risk for cardiac etiology Disposition: Home Discharge Condition All VS Reviewed: Yes Condition: Stable Patient Instructions: Congestive Heart Failure (ED) Additional Instructions: Increase your Lasix to two tablets (total 80 mg) in the morning and one tablet ( 40 mg) in the afternoon. Call your doctor tomorrow for follow-up. Return if any immediate issues, particularly chest pain or other new symptoms of concern. Referrals: [facility] ([facility] Scribe Attestation Portions of this note were transcribed by Felecia Mejia. I, Dr. Mckeon personally performed the history, physical exam and medical decision-making; I reviewed and confirmed the accuracy of the information in the transcribed note. copies to: [facility] [place] Mu Mckeon MD Nov 10, 2016 22:52 FELECIA MEJIA Nov 10, 2016 23:28
[2016-11-10 23:00] VITALS: BP 106/66; PULSE 87; RESP 17; O2SAT 94
[2016-11-10 23:32] VITALS: BP 95/64; PULSE 82; RESP 14; O2SAT 96
[2016-11-11] VITALS: BP 101/64; PULSE 81; RESP 17; O2SAT 95
[2016-11-11 00:16] LABS: BASOPHILS % (AUTO) 0.6 % (0-3); EOSINOPHILS % (AUTO) 1.1 % (0-5); MONOCYTES % (AUTO) 13.2 % (4-12); Mean Corpuscular Hemoglobin 29.4 pg (27.0-35.0); Mean Corpuscular Volume 97.1 fL (81-100); NEUTROPHILS % (AUTO) 71.1 % (40-74); Platelet Count 128 bil/L (150-400)
[2016-11-11 00:47] LABS: TROPONIN T 0.01 ug/L (0.0-0.011)
[2016-11-11 00:54] VITALS: BP 108/67; PULSE 86; RESP 24; O2SAT 96
[2016-11-11 00:55] LABS: Magnesium 1.9 mg/dL (1.6-2.6)
[2016-11-11 01:20] VITALS: BP 113/63; PULSE 81; RESP 24; O2SAT 96
[2016-11-11] MEDS ORDERED: Furosemide 10 mg/mL 10 mL Inj IVPUSH ONE (01:30)
[2016-11-11 02:10] VITALS: BP 123/66; PULSE 80; RESP 20; O2SAT 96
[2016-11-11] MEDS ORDERED: FURO80TA83 PO (02:11)
[2016-11-11 03:01] VITALS: BP 132/73; PULSE 75; RESP 28; O2SAT 96
[2016-11-11 03:08] VITALS: BP 132/73; PULSE 75; RESP 28; O2SAT 96
--- NOTE | 2016-11-11 16:54 | DRSVH ---
PROCEDURE: X-RAY CHEST ONE VIEW, PORTABLE ([id number]) INDICATIONS: CHEST PAIN TECHNIQUE: One view of the chest was acquired. COMPARISON: [facility], CR, XR CHEST 1VW (PORTABLE), 06/15/2015, 16:38. [facility], CR, XR CHEST 1VW (PORTABLE), 10/01/2016, 0:29. FINDINGS: Surgical changes and devices: Post median sternotomy. Dual-chamber lead cardiac pacer present in exp ected position. Lungs and pleura: No pleural effusions or pneumothorax. Lungs are clear, aside from bibasilar scarr ing/atelectasis not significantly changed. Mediastinum: Mediastinal contours appear normal. Heart size is enlarged. Bones and chest wall: No suspicious bony lesions. Overlying soft tissues appear unremarkable. IMPRESSION: Bibasilar scarring/atelectasis not significantly changed from prior examination. No defi nite acute cardiopulmonary process. Dictated by: Conrado PEREZ Interpreted: Yaneth Reaves MD on 11/11/2016 at 8:45 Approved by: Parish Bird M.D. on 11/11/2016 at 16:52
== END 2016-11-11 03:09 | disposition home or self-care (01) ==
LOC: EDBD 22:41 → SED 22:41
DX: I50.43 Acute on chronic combined systolic (congestive) and diastolic (congestive) heart failure (principal); J44.9 Chronic obstructive pulmonary disease, unspecified; R07.89 Other chest pain; I11.0 Hypertensive heart disease with heart failure; E78.5 Hyperlipidemia, unspecified; I25.10 Atherosclerotic heart disease of native coronary artery without angina pectoris; K21.9 Gastro-esophageal reflux disease without esophagitis; Z87.891 Personal history of nicotine dependence; Z95.0 Presence of cardiac pacemaker; Z79.82 Long term (current) use of aspirin
CPT/HCPCS: 36415; 71010; 80053; 83735; 83880; 84484; 85025; 93005; 96374; 99285; J1940

== ENCOUNTER 2016-11-18 11:11 | Emergency (ER) | payer OTHER ==
[~2016-11-18] VITALS: Ht 167.6 cm; Wt 86.4 kg
[~2016-11-18 11:11] MED LIST changes: +FURO80TA83 PO
[2016-11-18 11:16] VITALS: BP 124/69; PULSE 70; RESP 12; O2SAT 97
[2016-11-18 11:44] LABS: BASOPHILS % (AUTO) 0.4 % (0-3); EOSINOPHILS % (AUTO) 3.4 % (0-5); MONOCYTES % (AUTO) 9.6 % (4-12); Mean Corpuscular Hemoglobin 29.2 pg (27.0-35.0); Mean Corpuscular Volume 95.7 fL (81-100); NEUTROPHILS % (AUTO) 68.2 % (40-74); Platelet Count 109 bil/L (150-400)
--- NOTE | 2016-11-18 12:06 | DRSVH ---
PROCEDURE: X-RAY CHEST ONE VIEW, PORTABLE ([id number]) INDICATIONS: SHORTNESS OF BREATH TECHNIQUE: One view of the chest was acquired. COMPARISON: , CR, XR CHEST 1VW (PORTABLE), 11/10/2016, 23:24. [facility] 10/01/2016, 0:29. , CR, XR CHEST 1VW (PORT ABLE), 09/27/2016, 21:07. , CR, XR CHEST 1VW (PORTABLE), 06/15/2015, 16:38. FINDINGS: Surgical changes and devices: Sternotomy with mediastinal postoperative changes and left-sided cardia c pacer. Lungs and pleura: Bilateral pleural effusions or pleural scarring. Interstitial bibasilar pulmonary o pacities most consistent with atelectasis or scarring. Prominent pulmonary venous vascularity.. Mediastinum: Enlarged heart mediastinal contours with aortic calcifications.. Bones and chest wall: No suspicious bony lesions. Overlying soft tissues appear unremarkable. IMPRESSION: Possible fluid balance may represent early congestive heart failure exacerbation. Stable bibasilar atelectasis or scarring with pleural effusions or pleural scarring. Dictated by: Je Pratt M.D. on 11/18/2016 at 12:03 Approved by: Je Pratt M.D. on 11/18/2016 at 12:05
--- NOTE | 2016-11-18 12:21 | ED.REPORT ---
HPI-Abd Pain M 40 and Over Date of Service Nov 18, 2016 ED Provider: Bernabe Cope DO An 81 year old male with a history of hypertension, CAD, CHF, hyperlipidemia, COPD on 2L at home, GERD, benign prostatic hypertrophy, hepatitis C, colon resection with colostomy in 2007 secondary to ischemic colitis, and coronary bypass grafting is brought to the ED via EMS due to left arm pain. The pt was seen in the [facility] this morning to address "cramping" left arm pain and abdominal pain. These symptoms have been intermittently present for several years and the pt has been seen by his PCP multiple times in the last two months to address them. The pt denies vomiting, lower extremity edema, fever or abnormal shortness of breath. Nursing Notes Stated Complaint: ABDOMINAL PAIN Chief Complaint: Male Abdominal Pain Nursing Notes Reviewed: Yes Allergies: Coded Allergies: morphine (Verified Allergy, Intermediate, RASH, 11/06/16) Scheduled Aspirin (Aspirin) 81 Mg Tablet 81 MG PO DAILY Atorvastatin Calcium (Atorvastatin Calcium) 40 Mg Tablet 40 MG PO HS Budesonide/Formoterol 160-4.5 mcg Inh (Symbicort 160-4.5 mcg Inh) 120 Puff Inhaler 1 PUFF INHALATION BID Furosemide (Furosemide) 40 Mg Tablet 40 MG PO BID Furosemide (Lasix) 80 Mg Tablet 80 MG PO DAILY Isosorbide MN ER (Isosorbide MN ER) 60 Mg Tab.er.24h 60 MG PO DAILY Magnesium Oxide (Magnesium Oxide) 420 Mg Tablet 420 MG PO DAILY Metoprolol Tartrate (Metoprolol Tartrate) 50 Mg Tablet 50 MG PO BID Omeprazole (Omeprazole) 20 Mg Capsule.dr 20 MG PO DAILY Oxybutynin Chloride (Oxybutynin Chloride) 5 Mg Tablet 5 MG PO TID Potassium Chloride (Klor-Con Sprinkle) 10 Meq Capsule.er 10 MEQ PO BID Prazosin (Minipress) 1 Mg Capsule 1 MG PO HS Sertraline HCl (Sertraline) 50 Mg Tablet 50 MG PO HS Simethicone (Gas-X) 80 Mg Tablet 160 MG PO QID Scheduled PRN Albuterol Sulfate (Ventolin HFA Inhaler) 200 Puff/18 Gm Inhaler 2 PUFF INH QID PRN PRN For Wheezing Docusate Sodium (Docusate Sodium) 250 Mg Capsule 200 MG PO BID PRN PRN For Constipation HydrOXYzine HCl (HydrOXYzine HCl) 10 Mg Tablet 10 MG PO TID PRN PRN For Itching Nitroglycerin SL (Nitrostat) 0.4 Mg Tab.subl 0.3 MG SL Q5MIN PRN PRN For Chest Pain General Time Seen by MD: 12:20 Chief Complaint Other (Left arm pain) Hx Obtained From: Patient, EMS Arrived By: Ambulance Sudden in Onset?: No Onset Occurred: More than a week ago... Symptom Duration: Intermittent Recent Healthcare: Recent doctor visit, Recent hospitalization Similar Sx Previous: Yes Past Medical History Past Medical History Notes: PCP: Dr. Viveros at the [place] Past Medical History PAST MEDICAL HISTORY: 1. HTN 2. murmur 3. He has history of COPD on home oxygen, which was started about three months ago. He was diagnosed to have COPD around 2006. Known FEV1 in 2006 of 0.96. No history of childhood asthma. 4. History of coronary artery disease, with history of coronary bypass grafting around May 2002 with bovine aortic valve replacement for aortic stenosis at the same time. He subsequently had a repeat coronary bypass grafting around 2006 or 2007, but I cannot confirm this. He said he had cardiac catheterization about 2 months ago at the [place] and was told that one of his bypass grafts was fine, but the other one was probably obstructed, but stents were not placed. The patient had a previous echocardiogram on April 29, 2011, which revealed normal left ventricular systolic function, with ejection fraction of about 55% to 60%. There is moderate tricuspid regurgitation. There is a bioprosthetic aortic valve. The leaflets are not well seen. The peak velocity of 4.1 msec, which is compatible with [id number] aortic stenosis. Aortic valve area 0.79 cm squared. 5. He has a history of streptococcus viridans endocarditis in 2000, due to IV drug use. 6. 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 7. He has no history of thyroid dysfunction. 8. He has history of hyperlipidemia. 9. He has no history of cancer. 10. He has a diagnosis of posttraumatic stress disorder. 11. He has a history of hepatitis C infection. 12. He has a history of benign prostatic hypertrophy. 13. History of hiatal hernia. 14. History of ventral hernia. Reports: COPD, Congestive heart failure, Coronary artery disease, GERD, Hyperlipidemia Reports: Atrial fibrillation Past Surgical History Includes colon resection with colostomy in 2007 secondary to ischemic colitis. 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 cholecystectomy. aortic valve replacement (bovine) around 2002 for aortic valve stenosis associated with coronary bypass grafting. He again had coronary bypass grafting July 2007 (which was a redo CABG) Bilat achilles tendon repair Reports: Angioplasty Reports: Pacemaker insertion Family History Noncontributory Smoking History Former Smoker Social History Residing at [facility] due to recent injuries (broken back, subdural hemorrhage)- this was a previous reporT, Today he states he lives in a trailer with a roommate in [facility]. Alcohol Use: 1-3 per week Drug Use: In recovery Other Social History: Local resident Ambulatory Status Cane Review of Systems Review of Systems Note: denies lower extremity edema Constitutional: Denies: Fever Respiratory: Denies: Non-productive cough, Shortness of breath GI: Reports: Abdominal pain, Denies: Vomiting Musculoskeletal: Reports: Extremity pain, Denies: Neck pain Complete sys rev & neg: except as marked. Physical Exam Initial Vital Signs Vital Signs (First) Date Time Temp Pulse Resp B/P Pulse Ox O2 Delivery O2 Flow Rate FiO2 11/18/16 11:16 36.3 70 12 124/69 97 Room Air 3 Initial VS: Reviewed General/Constitutional: Awake, Alert Lindsey catheter and colostomy bag on oxygen Respiratory / Chest: Atraumatic, Breath sounds = bilat, No respiratory distress rhonchi bilaterally Cardiovascular: Heart rate NL, Regular rhythm, Heart sounds NL Abdomen: Atraumatic, Soft, Non-tender Back: Atraumatic, Full range of motion Head / Eyes: Atraumatic, Normocephalic, PERRL, EOMI ENT: Atraumatic, Airway patent, Mucous membranes moist Skin: Atraumatic, Color NL, No rash, Warm, Dry Neurologic: Oriented X3, Speech NL, No motor deficits, No sensory deficits Neck: Atraumatic, Supple, Full range of motion Upper Extremity / MS: Atraumatic, Full range of motion Lower Extremity / Pelvis / MS: Atraumatic, Full range of motion trace edema Psychiatric: Affect NL, Mood NL Interpretation & Diagnostics Lab Results Interpretation Result Diagram: 11/18/16 1130 11/18/16 1130 Test 11/18/16 11:30 White Blood Count 5.3th/mm3 (3.8-10.1) Red Blood Count 3.29mil/mm3 (4.40-5.80) Hemoglobin 9.6g/dL (13.8-17.2) Hematocrit 31.5% (41.0-50.0) Mean Corpuscular Volume 95.7fL (81-100) Mean Corpuscular Hemoglobin 29.2pg (27.0-35.0) Mean Corpuscular Hemoglobin Concent 30.5% (32.0-37.0) Red Cell Distribution Width 13.8% (12.3-15.4) Platelet Count 109bil/L (150-400) Neutrophils (%) (Auto) 68.2% (40-74) Lymphocytes (%) (Auto) 18.0% (14-46) Monocytes (%) (Auto) 9.6% (4-12) Eosinophils (%) (Auto) 3.4% (0-5) Basophils (%) (Auto) 0.4% (0-3) Sodium Level 141mEq/L (134-144) Potassium Level 4.0mEq/L (3.5-5.2) Chloride Level 101mEq/L (97-108) Carbon Dioxide Level 27mmol/L (18-29) Blood Urea Nitrogen 22mg/dL (8-27) Creatinine 1.04mg/dL (0.76-1.27) Estimat Glomerular Filtration Rate 73mL/min (>59) Glucose Level 112mg/dL (60-99) Calcium Level 8.6mg/dL (8.5-10.1) Magnesium Level 2.0mg/dL (1.6-2.6) Total Bilirubin 0.3mg/dL (0.0-1.2) Aspartate Amino Transf (AST/SGOT) 17U/L (0-50) Alanine Aminotransferase (ALT/SGPT) 11U/L (0-44) Alkaline Phosphatase 110U/L (25-160) Troponin T < 0.010ug/L (0.0-0.011) Pro-B-Type Natriuretic Peptide 27482yb/mL (0-486) Total Protein 7.4g/dL (6.4-8.4) Albumin 3.4g/dL (3.4-5.0) ECG Interpretation ECG Interpretation: ventricular-paced complexes with a rate of 80 LBBB Time: 11:20 Interpreted by: ED physician X-Ray Chest Interpretation Chest Xray Interpretation: IMPRESSION: Possible fluid balance may represent early congestive heart failure exacerbation. Stable bibasilar atelectasis or scarring with pleural effusions or pleural scarring. Dictated by: Je Pratt M.D. on 11/18/2016 at 12:03 Approved by: Je Pratt M.D. on 11/18/2016 at 12:05 Interpretation / Wet Read by: Interpret - Radiologist Re-Eval/Medical Decision Med Decision/Clinical Course Patient presents after having cramping in his arms which has been long-standing and without any other particular cardiopulmonary symptoms. It appears the patient has chronic congestive heart failure and does not seem to be decompensated at this time. He does have some amount of pulmonary edema on chest x-ray however is stable on his normal amount of home oxygen. IV Lasix given, patient is feeling better and ambulatory at his normal baseline. Return and follow-up precautions given. Source of Hx: Old records Time of Eval: 12:40 Patient Status: Condition improved Re-Evaluation/Progress Note: Pt rechecked, who is feeling well. The plan for further treatment is discussed. Time of Eval: 13:34 Patient Status: Condition improved Re-Evaluation/Progress Note: Pt rechecked, who has passed his road test. The diagnosis and plan for discharge are discussed. The pt understands and agrees with the plan. All questions are addressed at this time. Counseled Regarding: Diagnosis, Lab results, Need for follow-up, When/why to return to ED Discharge & Departure Primary Impression: Arm pain Laterality: left Qualified Code: M79.602 - Pain in left arm Disposition: Home Vital Signs - All Vital Signs Date Time Temp Pulse Resp B/P Pulse Ox O2 Delivery O2 Flow Rate FiO2 11/18/16 13:47 73 134/58 96 Nasal Cannula 3 11/18/16 13:31 74 17 138/54 96 Nasal Cannula 3 11/18/16 12:45 73 18 116/56 98 Nasal Cannula 11/18/16 11:16 36.3 70 12 124/69 97 Room Air 3 )( All Prior VS Reviewed: Yes Condition: Stable Additional Instructions: Thank you for entrusting us with your care. Your evaluation was reassuring. Increase your Lasix to 80 mg in the morning and 40 mg at night. Call your primary care physician to arrange a follow up appointment in the next several days. Return to the emergency department if you develop any new or worsening symptoms. Referrals: [facility] (PC[facility]) Scribe Attestation Portions of this note were transcribed by Anais Mejia. I, Dr. Cope personally performed the history, physical exam and medical decision-making; I reviewed and confirmed the accuracy of the information in the transcribed note. copies to: [facility] Bernabe Cope DO Nov 18, 2016 12:21 ANAIS MEJIA Nov 18, 2016 12:31
[2016-11-18 12:27] LABS: TROPONIN T < 0.010 ug/L (0.0-0.011)
[2016-11-18] MEDS ORDERED: Furosemide 10 mg/mL 10 mL Inj IVPUSH ONE (12:30)
[2016-11-18 12:45] VITALS: BP 116/56; PULSE 73; RESP 18; O2SAT 98
[2016-11-18 13:31] VITALS: BP 138/54; PULSE 74; RESP 17; O2SAT 96
[2016-11-18 13:47] VITALS: BP 134/58; PULSE 73; O2SAT 96
== END 2016-11-18 13:49 | disposition home or self-care (01) ==
LOC: EDBD 11:11 → EDUNIT# 11:11 → SED 11:11
DX: M79.602 Pain in left arm (principal); R10.9 Unspecified abdominal pain; I11.0 Hypertensive heart disease with heart failure; I50.9 Heart failure, unspecified; I25.10 Atherosclerotic heart disease of native coronary artery without angina pectoris; I48.91 Unspecified atrial fibrillation; J44.9 Chronic obstructive pulmonary disease, unspecified; K21.9 Gastro-esophageal reflux disease without esophagitis; E78.5 Hyperlipidemia, unspecified; Z95.0 Presence of cardiac pacemaker; Z95.4 Presence of other heart-valve replacement; Z95.5 Presence of coronary angioplasty implant and graft; Z90.49 Acquired absence of other specified parts of digestive tract; Z98.890 Other specified postprocedural states; Z87.891 Personal history of nicotine dependence; Z79.82 Long term (current) use of aspirin; Z88.5 Allergy status to narcotic agent
CPT/HCPCS: 36415; 71010; 80053; 83735; 83880; 84484; 85025; 93005; 96374; 99285; J1940

== ENCOUNTER 2016-12-12 18:15 | Observation (INO) | payer OTHER ==
[~2016-12-12] VITALS: Ht 167.6 cm; Wt 90.9 kg
[2016-12-12 18:15] VITALS: BP 126/82; PULSE 81; RESP 16; O2SAT 98
--- NOTE | 2016-12-12 18:41 | ED.REPORT ---
HPI-Dyspnea / Wheezing Date of Service Dec 12, 2016 ED Provider: Nichole Jackson MD Pt is a 81 year old male with a history of chronic cough, HTN, CAD, CHF, COPD, and hyperlipidemia who presents to the ED via EMS complaining of swelling to his lower extremities bilaterally onset 1 week ago. He c/o associated SOB, dyspnea with exertion, left-sided headache, and weight gain. He denies chest pain, fever, chills, and dizziness. The pt also reports a cough with green/ yellow phlegm, but he states that it is chronic. He denies smoking. Per pt, he has gained 15 lbs in 1 week, and he has been taking Lasix without relief. The pt also states that he has been unable to ambulate secondary to the swelling and SOB. Nursing Notes Stated Complaint: SHORTNESS OF BREATH Chief Complaint: Respiratory Distress Nursing Notes Reviewed: Yes Allergies: Coded Allergies: morphine (Verified Allergy, Intermediate, RASH, 11/06/16) Scheduled Aspirin (Aspirin) 81 Mg Tablet 81 MG PO DAILY Atorvastatin Calcium (Atorvastatin Calcium) 40 Mg Tablet 40 MG PO HS Budesonide/Formoterol 160-4.5 mcg Inh (Symbicort 160-4.5 mcg Inh) 120 Puff Inhaler 1 PUFF INHALATION BID Furosemide (Furosemide) 40 Mg Tablet 40 MG PO BID Furosemide (Lasix) 80 Mg Tablet 80 MG PO DAILY Isosorbide MN ER (Isosorbide MN ER) 60 Mg Tab.er.24h 60 MG PO DAILY Magnesium Oxide (Magnesium Oxide) 420 Mg Tablet 420 MG PO DAILY Metoprolol Tartrate (Metoprolol Tartrate) 50 Mg Tablet 50 MG PO BID Omeprazole (Omeprazole) 20 Mg Capsule.dr 20 MG PO DAILY Oxybutynin Chloride (Oxybutynin Chloride) 5 Mg Tablet 5 MG PO TID Potassium Chloride (Klor-Con Sprinkle) 10 Meq Capsule.er 10 MEQ PO BID Prazosin (Minipress) 1 Mg Capsule 1 MG PO HS Sertraline HCl (Sertraline) 50 Mg Tablet 50 MG PO HS Simethicone (Gas-X) 80 Mg Tablet 160 MG PO QID Scheduled PRN Albuterol Sulfate (Ventolin HFA Inhaler) 200 Puff/18 Gm Inhaler 2 PUFF INH QID PRN PRN For Wheezing Docusate Sodium (Docusate Sodium) 250 Mg Capsule 200 MG PO BID PRN PRN For Constipation HydrOXYzine HCl (HydrOXYzine HCl) 10 Mg Tablet 10 MG PO TID PRN PRN For Itching Nitroglycerin SL (Nitrostat) 0.4 Mg Tab.subl 0.3 MG SL Q5MIN PRN PRN For Chest Pain General Time Seen by MD: 18:40 Chief Complaint Other (Lower extremity swelling) Hx Obtained From: Patient, EMS Arrived By: Ambulance Sudden in Onset?: No Onset Occurred: 1 week ago Symptom Duration: Since onset Severity: Current: No pain currently Severity: Maximum: No pain Recent Healthcare: No recent doctor visit, No recent hospitalization Similar Sx Previous: Yes Past Medical History Past Medical History Notes: PCP: Dr. Viveros at the [facility] Past Medical History PAST MEDICAL HISTORY: 1. HTN 2. murmur 3. He has history of COPD on home oxygen, which was started about three months ago. He was diagnosed to have COPD around 2006. Known FEV1 in 2006 of 0.96. No history of childhood asthma. 4. History of coronary artery disease, with history of coronary bypass grafting around May 2002 with bovine aortic valve replacement for aortic stenosis at the same time. He subsequently had a repeat coronary bypass grafting around 2006 or 2007, but I cannot confirm this. He said he had cardiac catheterization about 2 months ago at the [facility] and was told that one of his bypass grafts was fine, but the other one was probably obstructed, but stents were not placed. The patient had a previous echocardiogram on April 29, 2011, which revealed normal left ventricular systolic function, with ejection fraction of about 55% to 60%. There is moderate tricuspid regurgitation. There is a bioprosthetic aortic valve. The leaflets are not well seen. The peak velocity of 4.1 msec, which is compatible with [id number] aortic stenosis. Aortic valve area 0.79 cm squared. 5. He has a history of streptococcus viridans endocarditis in 2000, due to IV drug use. 6. 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 7. He has no history of thyroid dysfunction. 8. He has history of hyperlipidemia. 9. He has no history of cancer. 10. He has a diagnosis of posttraumatic stress disorder. 11. He has a history of hepatitis C infection. 12. He has a history of benign prostatic hypertrophy. 13. History of hiatal hernia. 14. History of ventral hernia. Reports: COPD, Congestive heart failure, Coronary artery disease, GERD, Hyperlipidemia, Denies: Diabetes mellitus Reports: Atrial fibrillation Past Surgical History Includes colon resection with colostomy in 2007 secondary to ischemic colitis. 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 cholecystectomy. aortic valve replacement (bovine) around 2002 for aortic valve stenosis associated with coronary bypass grafting. He again had coronary bypass grafting July 2007 (which was a redo CABG) Bilat achilles tendon repair Reports: Angioplasty Reports: Pacemaker insertion Family History Noncontributory Smoking History Former Smoker Social History Lives in a Trailer Alcohol Use: 1-3 per week Drug Use: In recovery Other Social History: Local resident Ambulatory Status Cane Review of Systems Constitutional: Denies: Chills, Fever Respiratory: Reports: Dyspnea on exertion, Prod cough, green (chronic), Prod cough, yellow (chronic), Shortness of breath Cardiovascular: Denies: Chest pain Musculoskeletal: Reports: Extremity swelling Complete sys rev & neg: except as marked. Neurologic: Reports: Headache, Denies: Dizziness Physical Exam Initial Vital Signs Vital Signs (First) Date Time Temp Pulse Resp B/P Pulse Ox O2 Delivery O2 Flow Rate FiO2 12/12/16 18:15 36.6 81 16 126/82 98 2 12/12/16 21:19 Nasal Cannula Initial VS: Reviewed, Vital signs normal Head / Eyes: Atraumatic, Normocephalic, PERRL Extremities: Vascular intact, Neuro intact Skin: Warm, Dry, No cyanosis Neurologic: Alert, Oriented, Nonfocal Psychiatric: Mood/affect normal, Behavior normal General/Constitutional: Awake, Alert Neck: Atraumatic, Full range of motion Respiratory / Chest: Atraumatic Bibasular rales to mid lung [place] Cardiovascular: Heart rate NL, Regular rhythm, Heart sounds NL Lower Ext Edema: Positive: Bilateral 3+ Abdomen: Atraumatic, Soft Mid right sided tenderness. Large right sided hernia below stoma. Positive bowel sounds. Interpretation & Diagnostics Lab Results Interpretation Result Diagram: 12/12/16 1850 12/12/16 1850 Test 12/12/16 18:50 12/12/16 19:00 White Blood Count 6.8th/mm3 (3.8-10.1) Red Blood Count 3.20mil/mm3 (4.40-5.80) Hemoglobin 9.0g/dL (13.8-17.2) Hematocrit 30.4% (41.0-50.0) Mean Corpuscular Volume 95.0fL (81-100) Mean Corpuscular Hemoglobin 28.1pg (27.0-35.0) Mean Corpuscular Hemoglobin Concent 29.6% (32.0-37.0) Red Cell Distribution Width 15.1% (12.3-15.4) Platelet Count 125bil/L (150-400) Neutrophils (%) (Auto) 68.5% (40-74) Lymphocytes (%) (Auto) 18.0% (14-46) Monocytes (%) (Auto) 10.5% (4-12) Eosinophils (%) (Auto) 2.6% (0-5) Basophils (%) (Auto) 0.3% (0-3) Sodium Level 141mEq/L (134-144) Potassium Level 4.5mEq/L (3.5-5.2) Chloride Level 99mEq/L (97-108) Carbon Dioxide Level 30mmol/L (18-29) Blood Urea Nitrogen 31mg/dL (8-27) Creatinine 1.31mg/dL (0.76-1.27) Estimat Glomerular Filtration Rate 56mL/min (>59) Glucose Level 102mg/dL (60-99) Calcium Level 8.3mg/dL (8.5-10.1) Total Bilirubin 0.5mg/dL (0.0-1.2) Aspartate Amino Transf (AST/SGOT) 22U/L (0-50) Alanine Aminotransferase (ALT/SGPT) 15U/L (0-44) Alkaline Phosphatase 129U/L (25-160) Troponin T < 0.010ug/L (0.0-0.011) Pro-B-Type Natriuretic Peptide 4806pg/mL (0-486) Total Protein 7.5g/dL (6.4-8.4) Albumin 3.2g/dL (3.4-5.0) Hold Perez Top Tube Received (Received) Urine Color Yellow (YELLOW) Urine Appearance Hazy (CLEAR,HAZY) Urine pH 6.0 (5.0-8.0) Urine Specific [place] 1.010 (1.003-1.035) Urine Protein Negativemg/dL (NEG,TRACE) Urine Glucose (UA) Negativemg/dL (NEGATIVE) Urine Ketones Negativemg/dL (NEGATIVE) Urine Occult Blood Moderate (NEGATIVE) Urine Nitrite Positive (NEGATIVE) Urine Bilirubin Negative (NEGATIVE) Urine Urobilinogen Normalmg/dL (NORMAL) Urine Leukocyte Esterase Large (NEGATIVE) Urine RBC 11-50/hpf (0-2) Urine WBC 11-50/hpf (0-5) Urine Epithelial Cells Few/hpf (NONE-MOD) Urine Crystals None seen (NONE SEEN) Urine Bacteria Moderate/hpf (NONE-FEW) Urine Hyaline Casts None/lpf (NONE) Urine Granular Casts None seen (NONE SEEN) Urine Waxy Casts None seen (NONE SEEN) Urine Red Blood Cell Casts None seen (NONE SEEN) Urine White Blood Cell Casts None seen (NONE SEEN) Urine Mucus None seen (None Seen) Urine Trichomonas None seen (NONE SEEN) Urine Yeast None (NONE SEEN) Urinalysis Comment None Urine Culture Reflexed Indicated ECG Interpretation ECG Interpretation: Atrial fibrilliation with a rate of [address] depression v4, v5 Time: 18:49 Interpreted by: ED physician X-Ray Chest Interpretation Chest Xray Interpretation: IMPRESSION: There is a chronic mild interstitial prominence. Heart size is at the upper limits of normal but no acute CHF is suspected. No acute disease identified. Dictated by: Parish Bird M.D. on 12/12/2016 at 19:50 View: Portable, 1 view Interpretation / Wet Read by: Interpret - Radiologist Re-Eval/Medical Decision Med Decision/Clinical Course The patient presents with increased difficulty breathing and has a history of congestive heart failure with increased swelling to his lower extremities. His evaluation reveals no congestive heart failure or pneumonia. His symptoms are likely related to COPD exacerbation. The patient is currently being treated with multiple breathing treatments, prednisone, and antibiotics. If the patient does not improve significantly he will need to be admitted to the hospital. A partial list of differential diagnoses considered were acute coronary syndrome, pneumonia, congestive heart failure, COPD exacerbation, and sepsis. The patient was ambulated but only got a couple steps before he was significantly short of breath. I am currently waiting to speak with Dr. Diaz for admission. Source of Hx: Old records Re-Evaluation/Progress #1: Time of Eval: 22:15 Re-Evaluation/Progress Note: Pt rechecked. He reports no relief with the treatment. Informed pt of plan for additional treatment. Informed pt of plan for road test with pending admission if he is unable to ambulate. Pt understands and agrees with plan. All questions addressed. Re-Evaluation/Progress #2: Time of Eval: 23:41 Re-Evaluation/Progress Note: Pt was unable to ambulated. Pt will be admitted. Consultation : Referral / Consult Name: Armida Ny DO Consulted With: Hospitalist Counseled Regarding: Diagnosis, Lab results, Need for admission Discharge & Departure Impression: Primary Impression: COPD exacerbation Additional Impression: Anemia Anemia type: unspecified type Qualified Code: D64.9 - Anemia, unspecified Disposition: ADMITTED TO HOSPITAL Discharge Condition All VS Reviewed: Yes Condition: Stable [facility] [place] Attestation Portions of this note were transcribed by Ayla Bello. I, Dr. Jackson personally performed the history, physical exam and medical decision-making; I reviewed and confirmed the accuracy of the information in the transcribed note. Signed by : Daphne Horton, 12/12/16. copies to: [facility] Nichole Jackson MD Dec 12, 2016 18:41 Ayla Judge Dec 12, 2016 19:00
[2016-12-12 19:29] LABS: BASOPHILS % (AUTO) 0.3 % (0-3); EOSINOPHILS % (AUTO) 2.6 % (0-5); MONOCYTES % (AUTO) 10.5 % (4-12); Mean Corpuscular Hemoglobin 28.1 pg (27.0-35.0); NEUTROPHILS % (AUTO) 68.5 % (40-74); Platelet Count 125 bil/L (150-400)
[2016-12-12 19:44] LABS: TROPONIN T < 0.010 ug/L (0.0-0.011)
--- NOTE | 2016-12-12 19:53 | DRSVH ---
PROCEDURE: X-RAY CHEST ONE VIEW, PORTABLE ([id number]) INDICATIONS: Shortness of breath TECHNIQUE: One view of the chest was acquired. COMPARISON: None. FINDINGS: Surgical changes and devices: Sternotomy wires, dual chamber cardiac pacemaking device and leads in normal position. Lungs and pleura: No pleural effusions or pneumothorax. Lungs are unchanged, with a mild interstiti al prominence. Mediastinum: Mediastinal contours appear normal. Heart size is normal. Bones and chest wall: No suspicious bony lesions. Overlying soft tissues appear unremarkable. IMPRESSION: There is a chronic mild interstitial prominence. Heart size is at the upper limits of n ormal but no acute CHF is suspected. No acute disease identified. Dictated by: Parish Bird M.D. on 12/12/2016 at 19:50 Approved by: Parish Bird M.D. on 12/12/2016 at 19:51
[2016-12-12 20:12] LABS: APPEARANCE,URINE HAZY (CLEAR,HAZY); COLOR,URINE YELLOW (YELLOW); OCCULT BLOOD,URINE MODERATE (NEGATIVE); UROBILINOGEN,URINE NORMAL (NORMAL)
[2016-12-12] MEDS ORDERED: Albuterol-Ipratropium 3 mL Inhalation Solution NEB ONE (21:15)
[2016-12-12] MEDS ORDERED: 0.9% Sodium Chloride 250 ML IV ONE (21:15)
[2016-12-12] MEDS ORDERED: predniSONE 20 mg Tablet PO ONE (21:15)
[2016-12-12] MEDS ORDERED: Albuterol 2.5 mg/3 mL Inhalation Solution NEB ONE (21:15)
[2016-12-12 21:19] VITALS: PULSE 87; RESP 16; O2SAT 98
[2016-12-12 22:18] VITALS: BP 101/72; PULSE 99; RESP 18; O2SAT 98
== END 2016-12-13 01:36 | disposition admitted as inpatient to this hospital (09) ==
LOC: SED 18:15 → MPC 23:18
PROVIDERS: ADMIT Internal Medicine; ATTEND Internal Medicine
DX: R69 Illness, unspecified (principal)